=== PATIENT | male | born 1960 | race African-American/Black ===

== ENCOUNTER 2017-05-03 14:18 | Emergency (ER) | payer OTHER ==
[2017-05-03 14:40] VITALS: RESP 18
[2017-05-03 15:22] LABS: Appearance,Urine Clear (Clear); Bilirubin,Urine Negative (Negative); Blood,Urine Negative (Negative); Color,Urine Light Yellow; Glucose,Urine (UA) Negative (Negative); Ketones,Urine Negative (Negative); Leukocyte Esterase,Urine Negative (Negative); Protein,Urine Negative (Negative); Specific Gravity,Urine 1.003 (1.001-1.035); Urobilinogen,Urine <2.0 mg/dL (<2.0)
--- NOTE | 2017-05-03 15:30 | ED ---
Lower Extremity Injury HPI - General Chief Complaint: Extremity Injury, Lower Stated Complaint: Leg pain Time Seen by Provider: 05/03/17 14:45 Source: patient Mode of arrival: ambulatory Limitations: no limitations - History of Present Illness Initial Comments: 57-year-old male patient presents to the emergency department today for evaluation of pain in his right calf. Patient states that he has an area of redness, pain, and swelling to the medial aspect of the right calf. Patient states that he noticed a spot a week ago. He states that it is very painful and hurts to walk. He denies any injury to the leg. Denies any numbness or tingling to the right lower leg. Denies any history of pain. Denies any recent travel, shortness of breath, palpitations, or chest pain. Patient denies any recent rash, fever, chills, shortness breath, chest pain, abdominal pain, nausea, vomiting, diarrhea, constipation, back pain, numbness, tingling, dizziness, weakness, hematuria, dysuria, urinary urgency, urinary frequency, headache, visual changes, or any other complaints. - Related Data Allergies Allergy/AdvReac Type Severity Reaction Status Date / Time No Known Allergies Allergy Verified 05/03/17 15:12 Review of Systems ROS Statement: Those systems with pertinent positive or pertinent negative responses have been documented in the HPI. ROS Other: All systems not noted in ROS Statement are negative. Past Medical History Past Medical History: Hypertension History of Any Multi-Drug Resistant Organisms: None Reported Past Surgical History: Appendectomy Past Psychological History: No Psychological Hx Reported Smoking Status: Current every day smoker Past Alcohol Use History: None Reported Past Drug Use History: None Reported General Exam Limitations: no limitations General appearance: alert, in no apparent distress, other (This is a well- developed, well-nourished adult male patient in no acute distress. Vital signs upon presentation are temperature 98.2F, pulse 70, respirations 18, blood pressure 153/99, pulse ox 96% on room air.) Respiratory exam: Present: normal lung sounds bilaterally. Absent: respiratory distress, wheezes, rales, rhonchi, stridor Cardiovascular Exam: Present: regular rate, normal rhythm, normal heart sounds. Absent: systolic murmur, diastolic murmur, rubs, gallop, clicks Extremities exam: Present: normal inspection, full ROM, tenderness (Tenderness over the medial aspect of the right calf), normal capillary refill, other (Mild soft tissue swelling on the right calf, mildly tender. Skin is otherwise pink, warm, and dry. Cap refills less than 3 seconds. Pedal and posttibial pulses are 2+ and equal bilaterally.). Absent: pedal edema, joint swelling, calf tenderness Neurological exam: Present: alert, oriented X3, CN II-XII intact Psychiatric exam: Present: normal affect, normal mood Skin exam: Present: warm, dry, intact, normal color. Absent: rash Course Vital Signs 05/03/17 05/03/17 14:37 16:13 Temperature 98.2 F 98.3 F Pulse Rate 70 67 Respiratory 18 18 Rate Blood Pressure 153/99 148/84 O2 Sat by Pulse 96 97 Oximetry Medical Decision Making - Medical Decision Making 57-year-old male patient presented to the emergency department today for complaints of right lower leg pain. Physical examination did reveal the area of ecchymosis and induration to the right medial calf. Patient reports that this area is painful to touch. We did perform ultrasound of the right lower extremity which was negative for DVT. I did discuss findings with the patient and instructed him to take Tylenol for pain control. He is instructed to follow -up with his primary care physician for recheck. He reports he does not have insurance or doctor, did give him the [facility]. He is instructed to return here immediately for any new, worsening, or concerning symptoms. He verbalizes understanding and agrees with this plan. - Lab Data Lab Results 05/03/17 Range/Units 15:08 Urine Color Light Yellow Urine Appearance Clear (Clear) Urine pH 6.0 (5.0-8.0) Ur Specific [place] 1.003 (1.001-1.035) Urine Protein Negative (Negative) Urine Glucose (UA) Negative (Negative) Urine Ketones Negative (Negative) Urine Blood Negative (Negative) Urine Nitrite Negative (Negative) Urine Bilirubin Negative (Negative) Urine Urobilinogen <2.0 (<2.0) mg/dL Ur Leukocyte Esterase Negative (Negative) - Radiology Data Radiology results: report reviewed Ultrasound venous Doppler duplex of the right lower extremity was obtained, report was reviewed in its entirety. Impression by Dr. Arroyo shows no ultrasound evidence for acute DVT in the right lower extremity. Disposition Clinical Impression: Contusion Disposition: HOME SELF-CARE Condition: Good Instructions: Contusion in Adults (ED) Additional Instructions: Call [facility] to get an appointment . Take Tylenol for pain control. Follow-up with her doctor for recheck and further evaluation as soon as possible. Return here immediately for any new, worsening, or concerning symptoms. Referrals: None,Stated [Primary Care Provider] - 1-2 days Time of Disposition: 15:59
--- NOTE | 2017-05-03 15:50 | US ---
EXAMINATION TYPE: US venous doppler duplex LE RT DATE OF EXAM: 05/03/2017 3:30 PM COMPARISON: NONE CLINICAL HISTORY: Pain. Per patient, lower leg throbs, bruise. No hx of DVT or on blood thinners. N o surgeries. SIDE PERFORMED: Right TECHNIQUE: The lower extremity deep venous system is examined utilizing real time linear array sonog nish with graded compression, doppler sonography and color-flow sonography. VESSELS IMAGED: External Iliac Vein (EIV) Common Femoral Vein Deep Femoral Vein Greater Saphenous Vein * Femoral Vein Popliteal Vein Small Saphenous Vein * Proximal Calf Veins (* superficial vessels) Right Leg: Appears NEGATIVE for DVT Grayscale, color doppler, spectral doppler imaging performed of the deep veins of the right lower ext remity. There is normal flow, compressibility, vascular waveforms. IMPRESSION: No ultrasound evidence for acute DVT in the right lower extremity.
[2017-05-03 16:14] VITALS: BP 148/84; PULSE 67; TEMP 98.3
== END 2017-05-03 16:13 | disposition home or self-care (01) ==
LOC: EC 14:18
DX: S80.11XA Contusion of right lower leg, initial encounter (principal); F17.200 Nicotine dependence, unspecified, uncomplicated; X58.XXXA Exposure to other specified factors, initial encounter
CPT/HCPCS: 81003; 99284

== ENCOUNTER → 2018-03-09 | Outpatient (CLI) | payer BC ==
[2018-03-09 09:41] LABS: Basophils % (A) 0 %; Eosinophils # (A) 0.2 k/uL (0-0.7); Eosinophils % (A) 2 %; HCT 42.4 % (39.0-53.0); HGB 13.8 gm/dL (13.0-17.5); Lymphocytes # (A) 3.6 k/uL (1.0-4.8); Lymphocytes % (A) 47 %; MCH 28.4 pg (25.0-35.0); MCHC 32.5 g/dL (31.0-37.0); MCV 87.2 fL (80.0-100.0); Mean Platelet Volume 7.6; Monocytes # (A) 0.4 k/uL (0-1.0); Monocytes % (A) 5 %; Neutrophils # (A) 3.4 k/uL (1.3-7.7); Neutrophils % (A) 44 %; Platelet Count 258 k/uL (150-450); RBC 4.87 m/uL (4.30-5.90); RDW 13.6 % (11.5-15.5); WBC 7.7 k/uL (3.8-10.6)
[2018-03-09 10:30] LABS: Appearance,Urine Clear (Clear); Bacteria,Urine Rare /hpf; Bilirubin,Urine Negative (Negative); Blood,Urine Small (Negative); Color,Urine Yellow; Glucose,Urine (UA) Negative (Negative); Ketones,Urine Negative (Negative); Leukocyte Esterase,Urine Negative (Negative); Mucus,Urine Rare /hpf; Nitrite,Urine Negative (Negative); PH, Urine 5.5 (5.0-8.0); Protein,Urine Negative (Negative); RBC,Urine 5 /hpf (0-5); Specific Gravity,Urine 1.014 (1.001-1.035); Squamous Epithelial Cell,Urine 1 /hpf (0-4); Urobilinogen,Urine <2.0 mg/dL (<2.0); WBC,Urine 2 /hpf (0-5)
[2018-03-09 18:39] LABS: Vitamin D 25 Hydroxy 9.9 ng/mL (30.0-100.0)
[2018-03-09 19:12] LABS: Hepatitis C IgG Antibody Non-Reactive (Non-Reactive)
[2018-03-09 19:14] LABS: Albumin 4.4 g/dL (3.80-4.90); Albumin/Globulin Ratio 1.76 (1.20-2.10); Anion Gap 8.4 mmol/L (4.00-12.00); Calcium 9.1 mg/dL (8.7-10.3); Carbon Dioxide 28.6 mmol/L (21.6-31.8); Globulin 2.5 g/dL (1.6-3.3); LDL Cholesterol,Calculated 127.4 mg/dL (0.0-131.0); Potassium 3.9 mmol/L (3.5-5.5); Total Bilirubin 0.7 mg/dL (0.2-1.2); Total Protein 6.9 g/dL (6.2-8.2); VLDL Calculation 49.6 mg/dL (5.00-40.00)
== END | disposition home or self-care (01) ==
LOC: LABWHC1 08:13
PROVIDERS: ATTEND Internal Medicine
DX: E78.5 Hyperlipidemia, unspecified (principal); I10 Essential (primary) hypertension; M10.9 Gout, unspecified; N40.0 Benign prostatic hyperplasia without lower urinary tract symptoms; E55.9 Vitamin D deficiency, unspecified
CPT/HCPCS: 36415; 80053; 80061; 81001; 82306; 83036; 84153; 84443; 84550; 85025; 86803

== ENCOUNTER → 2018-04-28 | Outpatient (CLI) | payer BC ==
--- NOTE | 2018-04-29 15:08 | US ---
EXAMINATION TYPE: US kidneys/renal and bladder DATE OF EXAM: 04/28/2018 COMPARISON: NONE CLINICAL HISTORY: I10 HTN, E78.5 Hyperlipidemia N40.0.... EXAM MEASUREMENTS: Right Kidney: 11.0 x 47.6 x 4.6 cm Left Kidney: 11.7 x 5.8 x 6.5 cm Post Void Residual Volume: 2.1 mL Right Kidney: No hydronephrosis or masses seen Left Kidney: No hydronephrosis or masses seen Bladder: wnl Bilateral Jets seen: yes Normal Post Void Residual: yes IMPRESSION: 1. No suspicious acute changes renal ultrasound
== END ==
LOC: RADUSWWP 16:17
PROVIDERS: ATTEND Internal Medicine
DX: N40.0 Benign prostatic hyperplasia without lower urinary tract symptoms (principal); R97.20 Elevated prostate specific antigen [PSA]; E78.5 Hyperlipidemia, unspecified; I10 Essential (primary) hypertension
CPT/HCPCS: 76770

== ENCOUNTER → 2018-04-29 | Outpatient (CLI) | payer BC ==
[2018-04-29 18:15] LABS: Vitamin D 25 Hydroxy 31.2 ng/mL (30.0-100.0)
[2018-04-29 18:38] LABS: Uric Acid 4.5 mg/dL (3.7-8.7)
[2018-04-29 18:50] LABS: Cyclic Citrullinated Pep IgG NEGATIVE (NEGATIVE); DNA Double-Stranded NEGATIVE (NEGATIVE)
[2018-04-29 18:59] LABS: Rheumatoid Factor 6 IU/mL (0-15)
[2018-05-02 13:55] LABS: ANA Pattern Homogeneous
== END ==
LOC: LABWHC1 07:56
PROVIDERS: ATTEND Internal Medicine
DX: N40.0 Benign prostatic hyperplasia without lower urinary tract symptoms (principal); J44.9 Chronic obstructive pulmonary disease, unspecified; M10.9 Gout, unspecified; E78.5 Hyperlipidemia, unspecified; I10 Essential (primary) hypertension; E55.9 Vitamin D deficiency, unspecified; M06.9 Rheumatoid arthritis, unspecified; R97.20 Elevated prostate specific antigen [PSA]
CPT/HCPCS: 36415; 82306; 82550; 84153; 84550; 86038; 86039; 86200; 86225; 86431

== ENCOUNTER → 2018-07-29 | Outpatient (CLI) | payer BC ==
--- NOTE | 2018-07-29 08:19 | XR ---
EXAMINATION TYPE: XR chest 2V DATE OF EXAM: 07/29/2018 COMPARISON: NONE HISTORY: Cough per order. Increasing size back lump per patient. TECHNIQUE: Frontal and lateral views of the chest are obtained. FINDINGS: Some eventration of right hemidiaphragm is present. There is no focal air space opacity, pl eural effusion, or pneumothorax seen. The cardiac silhouette size is within normal limits. Some ecta junito of the descending thoracic aorta is noted. The osseous structures are intact. IMPRESSION: No acute cardiopulmonary process.
== END | disposition home or self-care (01) ==
LOC: RADXRMAIN 07:57
PROVIDERS: ATTEND Internal Medicine
DX: R05 Cough (principal); B99.9 Unspecified infectious disease
CPT/HCPCS: 71046

== ENCOUNTER → 2018-12-16 | Outpatient (CLI) | payer BC ==
--- NOTE | 2018-12-16 13:10 | US ---
EXAMINATION TYPE: US mass soft tissue chest/back DATE OF EXAM: 12/16/2018 COMPARISON: NONE CLINICAL HISTORY: R22.2 Back lump,. LUMP MID BACK. TECHNIQUE/FINDINGS: Scanned lump area mid back no fluid or masses identified. No sonographic abnormal ity. No correlate to the patient's palpable abnormality by ultrasound. IMPRESSION: No sonographic correlate for the patient's palpable abnormality. No solid or cystic mass.
--- NOTE | 2018-12-16 13:59 | US ---
EXAMINATION TYPE: US extremity nonvasc mass LT DATE OF EXAM: 12/16/2018 COMPARISON: NONE CLINICAL HISTORY: R22.31 Elbow lump. Lump on left elbow. TECHNIQUE/FINDINGS: Targeted ultrasound was performed of the palpable abnormality in the patient's le ft elbow utilizing grayscale and color imaging. Corresponding the palpable abnormality within the lef t elbow there is a hypoechoic solid area seen 2.0 x .8 x 1.6 cm some internal vascular flow noted. T his is seen within the subcutaneous tissues abutting the adjacent osseous structure. No additional so lid or cystic masses. No subcutaneous edema. IMPRESSION: Palpable abnormality of the left elbow corresponds to a solid mass with internal vascula rity. MRI with contrast is recommended for further characterization.
== END | disposition home or self-care (01) ==
LOC: RADUSWWP 11:00
PROVIDERS: ATTEND Surgery Plastic and Reconstructive Surgery
DX: R22.31 Localized swelling, mass and lump, right upper limb (principal); R22.32 Localized swelling, mass and lump, left upper limb

== ENCOUNTER → 2018-12-16 | Outpatient (CLI) | payer BC | END | disposition home or self-care (01) | LOC: LABPAT 11:31 | PROVIDERS: ATTEND Surgery Plastic and Reconstructive Surgery | DX: Z53.9 Procedure and treatment not carried out, unspecified reason (principal) ==

== ENCOUNTER → 2019-02-10 | Outpatient (CLI) | payer BC ==
--- NOTE | 2019-02-13 12:16 | CT ---
EXAMINATION TYPE: CT abdomen pelvis w con DATE OF EXAM: 02/10/2019 COMPARISON: None INDICATION: abdominal pain DLP: 1607 mGycm, Automated exposure control for dose reduction was used. CONTRAST: 100 mL of Isovue 300. Study performed with Oral Contrast TECHNIQUE: Axial images were obtained from above the diaphragm to the pubic rami in the axial plane a t 5 mm thick sections. Reconstructed images are reviewed on the computer in the coronal plane. FINDINGS: Limited CT sections are obtained the lung bases. The lung bases are clear. CT ABDOMEN: There are scattered small mesenteric lymph nodes present. Liver: Normal Spleen: Normal Pancreas: Normal Adrenal glands: The adrenal glands are normal. Gallbladder: Normal Kidneys: No masses are evident. No hydronephrosis is present. No cysts are present. Delayed images were obtained through the kidneys, which remain unremarkable. Aorta: Normal Inferior vena cava: Normal. CT PELVIS: Loops of bowel within the abdomen and pelvis are normal. There are loops of bowel with incomplete distention limiting their evaluation. Appendix: Not visualized. No suspicious changes to suggest acute appendicitis are evident. Urinary bladder: Normal. Genitourinary structures: Prostate is normal. A few small calcifications are within the prostate. Osseous structures: No suspicious lytic or sclerotic lesions. IMPRESSIONS: 1. Scattered small lymph nodes within the mesentery. This is nonspecific. 2. No suspicious acute diverticulitis changes.
== END | disposition home or self-care (01) ==
LOC: RADCTMAIN 15:42
PROVIDERS: ATTEND Surgery Plastic and Reconstructive Surgery
DX: K57.92 Diverticulitis of intestine, part unspecified, without perforation or abscess without bleeding (principal); R93.3 Abnormal findings on diagnostic imaging of other parts of digestive tract
CPT/HCPCS: 74177; Q9967

== ENCOUNTER → 2019-02-14 | Outpatient (CLI) | payer BC ==
--- NOTE | 2019-02-14 18:03 | CT ---
EXAMINATION TYPE: CT angio chest with contrast and with 3-D reconstruction renderings DATE OF EXAM: 02/14/2019 5:27 PM COMPARISON: None HISTORY: Right lung pain and lump on back. CT DLP: 638.5 mGycm Automated exposure control for dose reduction was used. CONTRAST: CTA scan of the thorax is performed with IV Contrast, patient injected with 69ml mL of Isov ue 370, pulmonary embolism protocol. Three-D reconstructions. FINDINGS: LUNGS: The lungs are grossly clear, there is no concerning parenchymal mass or nodule identified. The re is no pleural effusion or pneumothorax seen. The tracheobronchial tree is patent. MEDIASTINUM: There is satisfactory enhancement of the pulmonary artery and its branches, there is no CT evidence for pulmonary embolism. No acute aortic findings. However, ascending aortic caliber is 4 .3 cm, consistent with mild aneurysmal dilation. There is aortic tortuosity. No cardiomegaly or peric ardial effusion. Coronary calcifications are detected. There is no mediastinal or hilar adenopathy. OTHER: No significant findings. IMPRESSION: 1) NEGATIVE FOR PULMONARY EMBOLISM OR OTHER ACUTE PROCESS. 2) Coronary calcifications detected. 3) Ascending aortic caliber is 4.3 cm, consistent with mild aneurysmal dilation, and there is aortic tortuosity
== END | disposition home or self-care (01) ==
LOC: RADCTMAIN 17:08
PROVIDERS: ATTEND Internal Medicine Sleep Medicine
DX: I25.10 Atherosclerotic heart disease of native coronary artery without angina pectoris (principal); R93.1 Abnormal findings on diagnostic imaging of heart and coronary circulation
CPT/HCPCS: 71275; Q9967

== ENCOUNTER → 2019-03-10 | Outpatient (CLI) | payer BC ==
[2019-03-10 07:54] LABS: Basophils # (A) 0.1 k/uL (0-0.2); Basophils % (A) 1 %; Eosinophils # (A) 0.2 k/uL (0-0.7); Eosinophils % (A) 4 %; HCT 43.6 % (39.0-53.0); HGB 13.8 gm/dL (13.0-17.5); Lymphocytes % (A) 36 %; MCH 26.9 pg (25.0-35.0); MCHC 31.6 g/dL (31.0-37.0); MCV 85.1 fL (80.0-100.0); Mean Platelet Volume 7.4; Monocytes # (A) 0.3 k/uL (0-1.0); Monocytes % (A) 5 %; Neutrophils # (A) 2.8 k/uL (1.3-7.7); Neutrophils % (A) 52 %; Platelet Count 277 k/uL (150-450); RBC 5.12 m/uL (4.30-5.90); WBC 5.5 k/uL (3.8-10.6)
[2019-03-10 08:04] LABS: Appearance,Urine Clear (Clear); Bilirubin,Urine Negative (Negative); Blood,Urine Trace (Negative); Color,Urine Yellow; Glucose,Urine (UA) Negative (Negative); Hyaline Casts,Urine 1 /lpf (0-2); Ketones,Urine Negative (Negative); Leukocyte Esterase,Urine Negative (Negative); Mucus,Urine Rare /hpf; Nitrite,Urine Negative (Negative); PH, Urine 5.5 (5.0-8.0); Protein,Urine Negative (Negative); RBC,Urine 1 /hpf (0-5); Specific Gravity,Urine 1.016 (1.001-1.035); Squamous Epithelial Cell,Urine 1 /hpf (0-4); Urobilinogen,Urine <2.0 mg/dL (<2.0); WBC,Urine 1 /hpf (0-5)
[2019-03-10 11:50] LABS: Erythrocyte Sedimentation Rate 11 mm/hr (0-15)
[2019-03-10 12:01] LABS: African American GFR (CKD) 85.9 (60.0-200.0); Albumin 4.4 g/dL (3.80-4.90); Albumin/Globulin Ratio 1.91 (1.60-3.17); Anion Gap 4.8 mmol/L (4.00-12.00); BUN/Creat Ratio 12.73 Ratio (12.00-20.00); C Reactive Protein 0.8 mg/dL (0.0-0.8); Calcium 9.5 mg/dL (8.7-10.3); Carbon Dioxide 32.2 mmol/L (21.6-31.8); Chol/HDL Ratio 4.81; Globulin 2.3 g/dL (1.6-3.3); Non-African American GFR(CKD) 74.1 (60.0-200.0); Phosphorus 3.4 mg/dL (2.4-5.1); Potassium 4.8 mmol/L (3.5-5.5); Total Protein 6.7 g/dL (6.2-8.2)
[2019-03-10 13:09] LABS: Uric Acid 7.9 mg/dL (3.7-8.7)
== END | disposition home or self-care (01) ==
LOC: LABWHC1 07:14
PROVIDERS: ATTEND Internal Medicine
DX: N40.0 Benign prostatic hyperplasia without lower urinary tract symptoms (principal); I10 Essential (primary) hypertension; M10.9 Gout, unspecified; E78.5 Hyperlipidemia, unspecified; E55.9 Vitamin D deficiency, unspecified; C61 Malignant neoplasm of prostate; R97.20 Elevated prostate specific antigen [PSA]
CPT/HCPCS: 36415; 80053; 80061; 81001; 82306; 82550; 83735; 84100; 84153; 84443; 84550; 85025; 85652; 86140

== ENCOUNTER 2019-03-22 10:32 | Day surgery (SDC) | payer BC ==
[2019-03-21 08:40] VITALS: BMI 39.3
--- NOTE | 2019-03-22 08:37 | P.GSHP ---
History of Present Illness H&P Date: 03/22/19 CHIEF COMPLAINT: GERD and colon screen HISTORY OF PRESENT ILLNESS: The patient is a 59-year-old male who presents with gastroesophageal reflux disease and need for colon screen. Upper and lower endoscopy were offered for further evaluation and management. PAST MEDICAL HISTORY: Please see list. PAST SURGICAL HISTORY: Please see list. MEDICATIONS: Please see list. ALLERGIES: Please see list. SOCIAL HISTORY: No illicit drug use FAMILY HISTORY: No reports of Crohn disease or ulcerative colitis. REVIEW OF ORGAN SYSTEMS: CONSTITUTIONAL: No reports of fevers or chills. GI: Denies any blood in stools or constipation. PHYSICAL EXAM: VITAL SIGNS: Stable GENERAL: Well-developed pleasant in no acute distress. HEENT: No scleral icterus. Extraocular movements grossly intact. Moist buccal mucosa. NECK: Supple without lymphadenopathy. CHEST: Unlabored respirations. Equal bilateral excursions. CARDIOVASCULAR: Regular rate and rhythm. Distal 2+ pulses. ABDOMEN: Soft, nondistended. MUSCULOSKELETAL: No clubbing, cyanosis, or edema. ASSESSMENT: 1. Gastroesophageal reflux disease 2. Colon screen. PLAN: 1. Recommend proceeding with an upper and lower endoscopy Past Medical History Past Medical History: Cancer, Hypertension Additional Past Medical History / Comment(s): prostate cancer History of Any Multi-Drug Resistant Organisms: None Reported Past Surgical History: Appendectomy Past Anesthesia/Blood Transfusion Reactions: No Reported Reaction Past Psychological History: No Psychological Hx Reported Smoking Status: Former smoker Past Alcohol Use History: Occasional Additional Past Alcohol Use History / Comment(s): quit 2018, smoked for 30 yrs, less than 1ppd Past Drug Use History: None Reported - Past Family History Mother Family Medical History: No Reported History Medications and Allergies Home Medications Medication Instructions Recorded Confirmed Type Doxazosin [Cardura] 4 mg PO QAM 03/21/19 03/21/19 History Lisinopril 40 mg PO HS 03/21/19 03/21/19 History amLODIPine [Norvasc] 10 mg PO QAM 03/21/19 03/21/19 History Allergies Allergy/AdvReac Type Severity Reaction Status Date / Time No Known Allergies Allergy Verified 03/21/19 08:34
[~2019-03-22 10:32] MED LIST: LACTATED RINGERS 1,000 ML IV SCH; LIDOCAINE 1% 20 ML VIAL (10MG/ML) FOR IV START INTRADERMA PRN
[2019-03-22 11:09] VITALS: TEMP 98.4
[2019-03-22] MEDS ORDERED: LIDOCAINE 1% INJ 10MG/ML (20 ML MDV) ONE (11:40)
[2019-03-22] MEDS ORDERED: PROPOFOL 10 MG/ML 20 ML VIAL IV ONE (11:40)
[2019-03-22] MEDS ORDERED: GLYCOPYRROLATE 0.2 MG/ML 2 ML VIAL ONE (11:40)
--- NOTE | 2019-03-22 11:53 | P.PCN ---
Date of Procedure: 03/22/19 Description of Procedure: PREOPERATIVE DIAGNOSIS: Gastroesophageal reflux disease. Morbid obesity. POSTOPERATIVE DIAGNOSIS: Morbid obesity. Gastritis with bleeding Gastroesophageal reflux disease. OPERATION: Esophagogastroduodenoscopy with biopsies along antrum. SURGEON: Melissa Cheung MD ANESTHESIA: MAC. INDICATIONS: The patient is a 59-year-old male who presents with a history of reflux disease. Benefits and risks of the procedure were described. Informed consent was obtained. DESCRIPTION: The patient was brought into the endoscopy suite and laid in the left lateral decubitus position. An Olympus gastroscope was passed along the posterior oropharynx down to the distal esophagus where the squamocolumnar junction was encountered at 40 cm from the incisors. The stomach was entered and no bile reflux was found. Additional findings are listed below. Biopsies with cold forceps were obtained of the antrum. The first through third portion of the duodenum was examined and unremarkable. Retroflexion of the scope confirmed Hill grade 3 lower esophageal valve. The squamocolumnar junction demonstrated LA grade B erosive esophagitis. The stomach was desufflated. The patient tolerated the procedure well. FINDINGS: Squamocolumnar junction 40 cm from the incisors. Diaphragmatic hiatus at 40 cm. Hill grade 3 lower esophageal valve. LA grade B erosive esophagitis. No active duodenitis. Chronic gastritis with recent bleed RECOMMENDATIONS: Upper endoscopy as needed.
[2019-03-22 12:12] VITALS: RESP 16
--- NOTE | 2019-03-22 12:12 | P.PCN ---
Date of Procedure: 03/22/19 Description of Procedure: PREOPERATIVE DIAGNOSIS: Colonoscopy screening, first POSTOPERATIVE DIAGNOSIS: Colonoscopy screening, firstexure Sigmoid colon polyp Sigmoid diverticulosis OPERATION: Colonoscopy to the ileocecal valve and appendiceal orifice. Colonoscopy with cold forceps biopsies SURGEON: Melissa Cheung MD. ANESTHESIA: MAC. INDICATIONS: The patient is an 59-year-old male who presents for his first colonoscopy. Benefits and risks were described and informed consent was obtained. DESCRIPTION OF PROCEDURE: The patient had undergone Suprep. He had been brought into the operating room and laid in the left lateral decubitus position. After adequate intravenous sedation, the rectum was examined with 2% lidocaine jelly. The prostate fossa was unremarkable. No external hemorrhoids were encountered. The rectal tone was within normal limits. No lesions were palpated in the rectal vault. An Olympus colonoscope was advanced until the ileocecal valve and appendiceal orifice were clearly viewed. The prep was excellent. Sigmoid diverticulosis was encountered. Multiple colonic polyps were found and removed with cold forceps biopsy focal colitis was found. Retroflexion of the scope demonstrated no internal hemorrhoids. The colon was desufflated. The patient had tolerated the procedure well. Withdrawal time was over 6 minutes. FINDINGS: Aronchick preparation quality scale 1 (1-5) No internal hemorrhoids No external hemorrhoids No arteriovenous malformations Sigmoid diverticulosis Removal of 3 polyps: - Cold forceps biopsy at 25 cm from the anal verge x 2, 4 mm polyps, sigmoid colon - Cold forceps biopsy at 20 cm from the anal verge, 4 mm polyp, sigmoid colon No focal colitis. RECOMMENDATIONS: Repeat colonoscopy 3 years, 2022 Plan - Discharge Summary Discharge Rx Participant: No New Discharge Prescriptions: No Action amLODIPine [Norvasc] 10 mg PO QAM Lisinopril 40 mg PO HS Doxazosin [Cardura] 4 mg PO QAM Discharge Medication List Doxazosin [Cardura] 4 mg PO QAM 03/21/19 [History] Lisinopril 40 mg PO HS 03/21/19 [History] amLODIPine [Norvasc] 10 mg PO QAM 03/21/19 [History] Follow up Appointment(s)/Referral(s): Melissa Cheung MD [STAFF PHYSICIAN] - 04/04/19 Patient Instructions/Handouts: Colorectal Polyps (DC), Diverticulosis Diet (GEN), Diverticulosis (DC) Activity/Diet/Wound Care/Special Instructions: Repeat colonoscopy 5 years, 2024 Discharge Disposition: HOME SELF-CARE
[2019-03-22 12:26] VITALS: BP 109/85; PULSE 70
== END 2019-03-22 12:42 | disposition home or self-care (01) ==
LOC: ORWHC2ENDO 10:32
PROVIDERS: ATTEND Surgery Plastic and Reconstructive Surgery
DX: K29.51 Unspecified chronic gastritis with bleeding (principal); K21.9 Gastro-esophageal reflux disease without esophagitis; Z12.11 Encounter for screening for malignant neoplasm of colon; K63.5 Polyp of colon; K57.30 Diverticulosis of large intestine without perforation or abscess without bleeding; I10 Essential (primary) hypertension; E66.01 Morbid (severe) obesity due to excess calories; Z68.36 Body mass index [BMI] 36.0-36.9, adult; Z85.46 Personal history of malignant neoplasm of prostate; Z90.49 Acquired absence of other specified parts of digestive tract; Z87.891 Personal history of nicotine dependence; Z79.899 Other long term (current) drug therapy
CPT/HCPCS: 88305; 45380; 43239; J2001; J2704

== ENCOUNTER → 2019-08-04 | Outpatient (CLI) | payer BC ==
--- NOTE | 2019-08-04 15:21 | NM ---
EXAMINATION TYPE: NM bone scan whole body DATE OF EXAM: 08/04/2019 COMPARISON: CTA chest February 14, 2019. CT abdomen and pelvis February 10, 2019. HISTORY: Prostate cancer. Delayed whole-body scanning was performed following the injection of 23.5 mCi Tc 99m MDP. Images acq uired 4 hours post injection. Whole body images in the anterior posterior projection along with image s of the abdomen and pelvis in multiple projections acquired. FINDINGS: There is no suspicious increased radiotracer uptake to suggest metastatic disease to the bone or othe r suspicious abnormality. Mild uptake bilateral knee joints is felt to reflect product of degenerativ e change greatest in the medial tibiofemoral compartments. IMPRESSION: No scintigraphic evidence of metastatic disease to the bone.
== END | disposition home or self-care (01) ==
LOC: RADNMMAIN 10:39
PROVIDERS: ATTEND Internal Medicine
DX: C61 Malignant neoplasm of prostate (principal)
CPT/HCPCS: 78306; A9503

== ENCOUNTER → 2019-12-01 | Outpatient (CLI) | payer BC ==
[2019-12-01 17:42] LABS: African American GFR (CKD) 85.9 (60.0-200.0); Non-African American GFR(CKD) 74.1 (60.0-200.0)
[2019-12-01 17:53] LABS: Prostate Specific Antigen 14.6 ng/mL (0.0-3.5)
== END | disposition home or self-care (01) ==
LOC: LABWHC1 07:11
PROVIDERS: ATTEND Radiology Radiation Oncology
DX: C61 Malignant neoplasm of prostate (principal); Z87.891 Personal history of nicotine dependence
CPT/HCPCS: 36415; 82565; 84153; 84520

== ENCOUNTER → 2019-12-06 | Outpatient (CLI) | payer BC ==
--- NOTE | 2019-12-06 16:14 | CT ---
EXAMINATION TYPE: CT pelvis wo/w con DATE OF EXAM: 12/06/2019 COMPARISON: Prior CT 02/10/2019, bone scan 08/04/2019 HISTORY: f/u prostate ca CT DLP: 2650.4 mGycm Automated exposure control for dose reduction was used. TECHNIQUE: Helical acquisition of images from the lung bases through the pelvis have been completed. CONTRAST: Performed with Oral Contrast and without and with IV Contrast, patient injected with 100 mL of Isovue 300. FINDINGS: AORTA: No significant abnormality is appreciated. Left common iliac artery is ectatic as on prior ex am LIVER/GB: No significant abnormality is appreciated. PANCREAS: No significant abnormality is seen. SPLEEN: No significant abnormality is seen. ADRENALS: No significant abnormality is seen. KIDNEYS: No significant abnormality is seen. REPRODUCTIVE ORGANS: There is some calcifications present within the prostate as on prior. Small travis ia noted left groin as on prior BOWEL: Some diverticular change noted within the descending colon FREE AIR: No Free Air visible. ASCITES: None visible. PELVIC ADENOPATHY: None visualized. RETROPERITONEAL ADENOPATHY: No Retroperitoneal Adenopathy visible. URINARY BLADDER: No significant abnormality is seen. OSSEOUS STRUCTURES: There is some facet arthropathy changes present at the lower lumbar spine, no sc lerotic or lytic lesion. IMPRESSION: THERE IS NO SIGNIFICANT INTERVAL CHANGE. LEFT GROIN HERNIA, CORRELATE. LEFT COMMON ILIAC ARTERY IS EC TATIC.
== END | disposition home or self-care (01) ==
LOC: RADCTMAIN 13:46
PROVIDERS: ATTEND Radiology Radiation Oncology
DX: I77.811 Abdominal aortic ectasia (principal); C61 Malignant neoplasm of prostate; Z87.891 Personal history of nicotine dependence
CPT/HCPCS: 72194; Q9967

== ENCOUNTER → 2020-01-11 | Outpatient (CLI) | payer BC ==
[2020-01-11 18:23] LABS: African American GFR (CKD) >90 (>60 ml/min/1.73 sqM); Blood Urea Nitrogen 14 mg/dL (9-20); Non-African American GFR(CKD) 79 (>60 ml/min/1.73 sqM)
--- NOTE | 2020-01-12 10:27 | CT ---
EXAMINATION TYPE: CT chest wo/w con DATE OF EXAM: 01/11/2020 COMPARISON: CT chest 02/14/2019 HISTORY: Bilateral lower rib pain and back pain. CT DLP: 1238 mGycm Automated exposure control for dose reduction was used. CONTRAST: CT scan of the chest is performed without and with IV Contrast, patient injected with 100ml mL of Iso geronimo 300. FINDINGS: LUNGS: The lungs are grossly clear, there is no concerning parenchymal mass or nodule identified. T here is no pleural effusion or pneumothorax seen. The tracheobronchial tree is patent. MEDIASTINUM: There are no greater than 1 cm hilar or mediastinal lymph nodes. No pericardial effusi on is seen. AORTA: Ascending aorta is aneurysmal at 4.6 cm, proximal descending aorta 3 cm, at the level of the hiatus the aorta measures 2.8 cm. OTHER: Bones show normal mineralization, consider bone scan as indicated. IMPRESSION: No abnormality evident to account for patient's symptoms. Aortic aneurysm. Consider bone scan or MRI. Additional findings above
== END | disposition home or self-care (01) ==
LOC: RADCTMAIN 17:42
PROVIDERS: ATTEND Radiology Radiation Oncology
DX: I71.2 Thoracic aortic aneurysm, without rupture (principal); C61 Malignant neoplasm of prostate; Z87.891 Personal history of nicotine dependence
CPT/HCPCS: 82565; 84520; 71270; 36415; Q9967

== ENCOUNTER 2020-01-18 08:55 | Day surgery (SDC) | payer BC ==
--- NOTE | 2020-01-12 17:55 | P.GSHP ---
History of Present Illness H&P Date: 01/12/20 Chief Complaint: Prostate Cancer The patient is a 59-year-old -[place] male initially evaluated in March 2018 for an elevated PSA level of 9.42. CADEN revealed a left-sided prostate nodule. 3 of 12 biopsies showed evidence of prostate cancer, Maria 6/7. Treatment options were reviewed, but he chose not to proceed with treatment. His PSA level in March 2019 fuad to 18.5, but decreased to 14.9 in July 2019. A bone scan in July 2019 was negative. After multiple detailed discussions, the patient has elected to proceed with IMRT. He has been made aware of the fact that the addition of androgen deprivation therapy (ADT) improves with IMRT, but he nonetheless declines ADT. He has elected to undergo SpaceOAR implant to reduce rectal toxicity. - Genitourinary (Male) Genitourinary: Reports nocturia, Reports urinary frequency Past Medical History Past Medical History: Hypertension History of Any Multi-Drug Resistant Organisms: None Reported Past Surgical History: Appendectomy Past Alcohol Use History: None Reported Medications and Allergies Home Medications Medication Instructions Recorded Confirmed Type Doxazosin [Cardura] 4 mg PO QAM 03/21/19 03/21/19 History amLODIPine [Norvasc] 10 mg PO QAM 03/21/19 03/21/19 History lisinopriL 40 mg PO HS 03/21/19 03/22/19 History Amoxicillin 1,000 mg PO Q12HR #56 cap 04/10/19 Rx Clarithromycin [Biaxin] 500 mg PO Q12HR #28 tablet 04/10/19 Rx Allergies Allergy/AdvReac Type Severity Reaction Status Date / Time No Known Allergies Allergy Verified 03/21/19 08:34 Surgical - Exam - General well developed, well nourished, no distress - Respiratory normal respiratory effort, clear to auscultation - Cardiovascular Rhythm: regular Abnormal Heart Sounds: no systolic murmur, no diastolic murmur, no rub, no S3 Gallop, no S4 Gallop, no click, no other - Abdomen Abdomen: soft, non tender, no guarding, no rigid, no rebound - Genitourinary normal penis with no external lesions, testicles non-tender - Rectum Rectum: normal sphincter tone, no masses, other (Left prostate nodule) - Psychiatric oriented to time, oriented to person, oriented to place, speech is normal, memory intact Assessment and Plan (1) Malignant neoplasm of prostate Status: Acute Code(s): C61 - MALIGNANT NEOPLASM OF PROSTATE SNOMED Code(s): 615852409 Plan: The SpaceOar implant has been reviewed in detail with the patient. He understands that the rationale for this is to create separation between the prostate and rectum, thus reducing the risk of radiation proctitis. The material begins to breakdown 12-13 weeks following implant, and is reabsorbed by the body. Risks include anesthesia, bleeding, infection, and perineal discomfort. He understands that if the rectal wall is perforated the procedure will need to be aborted.
[2020-01-17 09:42] VITALS: BMI 38.6
[~2020-01-18 08:55] MED LIST changes: +DEXAMETHASONE SOD PHOSPHATE 4 MG/ML 1 ML VIAL IV ONE; +HYDROmorphone 0.5 MG/0.5 ML SYRINGE IVP PRN; +LIDOCAINE 1% (10MG/ML) FOR IV START INTRADERMA PRN; -LIDOCAINE 1% 20 ML VIAL (10MG/ML) FOR IV START INTRADERMA PRN; +MIDAZOLAM 2 MG/2 ML VIAL IV PRN; +ONDANSETRON 4 MG/2 ML VIAL IVP ONE
[2020-01-18] MEDS ORDERED: KETAMINE 10 MG/ML 20 ML VIAL ONE (10:15)
[2020-01-18] MEDS ORDERED: PROPOFOL 10 MG/ML 20 ML VIAL IV ONE (10:15)
[2020-01-18] MEDS ORDERED: MIDAZOLAM 2 MG/2 ML VIAL ONE (10:15)
[2020-01-18] MEDS ORDERED: fentaNYL (PF) 50 MCG/ML 2 ML AMP ONE (10:15)
[2020-01-18] MEDS ORDERED: GLYCOPYRROLATE 0.2 MG/ML 2 ML VIAL ONE (10:15)
[2020-01-18] MEDS ORDERED: LIDOCAINE 2% INJ 20 MG/ML SQ ONE (10:37)
--- NOTE | 2020-01-18 10:48 | P.OP ---
Date of Procedure: 01/18/20 Preoperative Diagnosis: Adenocarcinoma of the prostate Postoperative Diagnosis: Same Procedure(s) Performed: SpaceOAR Implant Anesthesia: MAC Surgeon: Giovanni Fitzpatrick Estimated Blood Loss (ml): 5 IV fluids (ml): 300 Pathology: none sent Condition: stable Disposition: PACU Indications for Procedure: The patient is a 59-year-old -[place] male initially evaluated in March 2018 for an elevated PSA level of 9.42. CADEN revealed a left-sided prostate nodule. 3 of 12 biopsies showed evidence of prostate cancer, Munising 6/7. Treatment options were reviewed, but he chose not to proceed with treatment. His PSA level in March 2019 fuad to 18.5, but decreased to 14.9 in July 2019. A bone scan in July 2019 was negative. After multiple detailed discussions, the patient has elected to proceed with IMRT. He has been made aware of the fact that the addition of androgen deprivation therapy (ADT) improves with IMRT, but he nonetheless declines ADT. He has elected to undergo SpaceOAR implant to reduce rectal toxicity. Operative Findings: 13 mm distance created between prostate and rectum. Description of Procedure: The patient was taken to the operating room and placed in the dorsolithotomy position, with his legs supported in [place] stirrups. The external genitalia was prepped and draped sterilely. The Bruel and Kjaer transrectal ultrasound probe was placed intrarectally. The prostate was imaged. The probe was then placed within the stabilizing stand. A spinal needle was advanced under ultrasonic guidance to the level of the urogenital diaphragm, and lidocaine was used to infiltrate the tissues as the needle was withdrawn. Next, the SpaceOAR needle was passed through the midline of the perineum, 1-2 cm anterior to the anal opening. The needle was slowly advanced under ultrasonic guidance until the needle tip was located within the fat plane between the prostate and rectum, at the level of the mid prostate gland. The needle was confirmed to be midline on the axial imaging. A small amount of normal saline was injected for hydrodissection. Next, the SpaceOAR components were mixed and loaded into the Y connector per protocol. The Y connector was then connected to the needle, and the components were injected slowly over a course of approximately 12 seconds. A total of 10 ml was injected. 13 mm distance was created between the prostate and rectum. It should be noted that at no point was there any concern of rectal perforation. The needle was withdrawn, as well as the transrectal ultrasound probe, and the procedure was terminated. The patient tolerated the procedure well and was taken to the recovery room in stable condition.
[2020-01-18 11:03] VITALS: TEMP 97.2
[2020-01-18 11:56] VITALS: RESP 20
[2020-01-18 12:06] VITALS: BP 102/70; PULSE 76
== END 2020-01-18 12:07 | disposition home or self-care (01) ==
LOC: OR 08:55
PROVIDERS: ATTEND Urology
DX: C61 Malignant neoplasm of prostate (principal); I10 Essential (primary) hypertension; E78.5 Hyperlipidemia, unspecified; F17.210 Nicotine dependence, cigarettes, uncomplicated; M19.90 Unspecified osteoarthritis, unspecified site; E66.9 Obesity, unspecified; Z79.899 Other long term (current) drug therapy; Z90.49 Acquired absence of other specified parts of digestive tract; Z68.38 Body mass index [BMI] 38.0-38.9, adult
CPT/HCPCS: 55874; J2001; J2250; J1100; J0690; J2405; J3010; J2704

== ENCOUNTER → 2020-04-19 | Outpatient (CLI) | payer BC ==
[2020-04-19 10:59] LABS: Basophils # (A) 0.02 X 10*3/uL (0.00-0.10); Basophils % (A) 0.4 %; Eosinophils # (A) 0.11 X 10*3/uL (0.04-0.35); HCT 41.8 % (39.6-50.0); HGB 13.2 g/dL (13.0-17.0); Lymphocytes # (A) 1.22 X 10*3/uL (0.90-5.00); Lymphocytes % (A) 22.5 %; MCH 27.2 pg (27.0-32.0); MCHC 31.6 g/dL (32.0-37.0); MCV 86.2 fL (80.0-97.0); Monocytes # (A) 0.39 X 10*3/uL (0.20-1.00); Monocytes % (A) 7.2 %; Neutrophils # (A) 3.67 X 10*3/uL (1.80-7.70); Neutrophils % (A) 67.7 %; Platelet Count 252 X 10*3/uL (140-440); RBC 4.85 X 10*6/uL (4.40-5.60); RDW 13.2 % (11.5-14.5); WBC 5.42 X 10*3/uL (4.50-10.00)
[2020-04-19 13:05] LABS: ALT 21 U/L (10-49); AST 21 U/L (14-35); African American GFR (CKD) 85.3 (60.0-200.0); Albumin/Globulin Ratio 1.92 (1.60-3.17); Alkaline Phosphatase 51 U/L (41-126); BUN/Creat Ratio 16.36 Ratio (12.00-20.00); C Reactive Protein <0.4 mg/dL (0.0-0.8); Carbon Dioxide 26.5 mmol/L (21.6-31.8); Chloride 107 mmol/L (96-109); Chol/HDL Ratio 4.32; Cholesterol 164 mg/dL (0-200); Globulin 2.4 g/dL (1.6-3.3); Glucose 102 mg/dL (70-110); Non-African American GFR(CKD) 73.6 (60.0-200.0); Phosphorus 3.4 mg/dL (2.4-5.1); Potassium 4.3 mmol/L (3.5-5.5); Prostate Specific Antigen 8.8 ng/mL (0.0-3.5); Sodium 141 mmol/L (135-145); Total Bilirubin 0.8 mg/dL (0.3-1.2); Uric Acid 8.6 mg/dL (3.7-8.7)
[2020-04-19 13:06] LABS: Creatine Kinase 482 U/L (35-257); Magnesium 1.9 mg/dL (1.5-2.4)
[2020-04-19 13:58] LABS: Erythrocyte Sedimentation Rate 8 mm/Hr (0-20)
[2020-04-19 18:06] LABS: Hemoglobin A1C 5.9 % (4.0-6.0)
== END | disposition home or self-care (01) ==
LOC: LABWHC1 07:10
PROVIDERS: ATTEND Radiology Radiation Oncology
DX: D64.9 Anemia, unspecified (principal); N40.0 Benign prostatic hyperplasia without lower urinary tract symptoms; I10 Essential (primary) hypertension; M10.9 Gout, unspecified; E78.5 Hyperlipidemia, unspecified; E11.65 Type 2 diabetes mellitus with hyperglycemia; E66.9 Obesity, unspecified; M18.10 Unilateral primary osteoarthritis of first carpometacarpal joint, unspecified hand; E55.9 Vitamin D deficiency, unspecified; C61 Malignant neoplasm of prostate; Z79.818 Long term (current) use of other agents affecting estrogen receptors and estrogen levels; Z87.891 Personal history of nicotine dependence
CPT/HCPCS: 36415; 80053; 80061; 82306; 82550; 83036; 83735; 83970; 84100; 84153; 84443; 84550; 85025; 85652; 86140

== ENCOUNTER 2020-05-01 14:19 | Emergency (ER) | payer BC ==
[2020-05-01] MEDS ORDERED: SODIUM CHLORIDE 0.9% 500 ML 500 ML IV STA (14:58)
[2020-05-01 15:14] LABS: Basophils % (A) 1 %; Eosinophils # (A) 0.3 k/uL (0-0.7); Eosinophils % (A) 6 %; HCT 39.2 % (39.0-53.0); Lymphocytes % (A) 18 %; MCH 27.6 pg (25.0-35.0); MCHC 33.1 g/dL (31.0-37.0); MCV 83.5 fL (80.0-100.0); Mean Platelet Volume 6.9; Monocytes # (A) 0.3 k/uL (0-1.0); Monocytes % (A) 5 %; Neutrophils # (A) 3.9 k/uL (1.3-7.7); Neutrophils % (A) 70 %; Platelet Count 242 k/uL (150-450); RDW 13.2 % (11.5-15.5); WBC 5.6 k/uL (3.8-10.6)
[2020-05-01 15:22] LABS: INR 1.1 (<1.2); Partial Thromboplastin Time 24.4 sec (22.0-30.0); Prothrombin Time 11.5 sec (9.0-12.0)
[2020-05-01 15:23] LABS: ALT 19 U/L (4-49); AST 25 U/L (17-59); African American GFR (CKD) >90 (>60 ml/min/1.73 sqM); Albumin 4.4 g/dL (3.5-5.0); Alkaline Phosphatase 48 U/L (38-126); Anion Gap 6 mmol/L; Blood Urea Nitrogen 14 mg/dL (9-20); Calcium 9.5 mg/dL (8.4-10.2); Carbon Dioxide 29 mmol/L (22-30); Chloride 103 mmol/L (98-107); Glucose 99 mg/dL (74-99); Non-African American GFR(CKD) 82 (>60 ml/min/1.73 sqM); Sodium 138 mmol/L (137-145); Total Bilirubin 0.7 mg/dL (0.2-1.3); Total Protein 7.4 g/dL (6.3-8.2)
--- NOTE | 2020-05-01 15:29 | XR ---
EXAMINATION TYPE: XR chest 2V DATE OF EXAM: 05/01/2020 COMPARISON: 07/29/2018 HISTORY: 60-year-old male confusion, altered mental status TECHNIQUE: AP and lateral views FINDINGS: Heart borderline to mildly enlarged. Elongation/ectasia of the thoracic aorta. Mild hyperinflation. N o tim consolidation or pleural effusion. Hazy densities related to large patient body habitus. IMPRESSION: Borderline to mild cardiomegaly. Suspect underlying COPD. No definite acute process.
--- NOTE | 2020-05-01 15:32 | CT ---
EXAMINATION TYPE: CT brain wo con DATE OF EXAM: 05/01/2020 COMPARISON: None HISTORY: Lightheadedness, right arm numbness, neuro deficit CT DLP: 1133.4 mGycm Automated exposure control for dose reduction was used. Helical imaging through the brain. FINDINGS: Cortical atrophy is present. White matter low-attenuation is patchy. There is some basal ganglia calc ifications. There is no hemorrhage or hydrocephalus. Calvarium is intact. There is some increased den sity present within the ethmoid air cells. Mastoid air cells are well aerated. IMPRESSION: NONSPECIFIC WHITE MATTER DEMYELINATION, AGE RELATED ATROPHY, CONSIDER MRI INDICATED FOR INCREASED SENSITIVITY
--- NOTE | 2020-05-01 15:35 | ED ---
General Adult HPI - General Source: patient Mode of arrival: ambulatory Limitations: no limitations <Ashanti Dean - Last Filed: 05/01/20 16:04> <Michelle Oshea - Last Filed: 05/03/20 13:29> - General Chief complaint: Neuro Symptoms/Deficit Stated complaint: Dizziness Time Seen by Provider: 05/01/20 14:44 - History of Present Illness Initial comments: 60-year-old male patient presents to the emergency department today for evaluation of right arm numbness and lightheadedness. Patient states around 1:00 he was at home when he developed a numb sensation to the right upper arm. States at the same time he became very lightheaded. States symptoms lasted for about 15 minutes and then resolved. Patient denies any history of similar symptoms. States he has been having some pain to the right anterior shoulder for the last couple of weeks but nothing more to today. Denies any facial droop or speech difficulties with this. States he does have a history of high blood pressure and high cholesterol. No personal or family history of CVA, TIA, or cardiac disease. Patient denies any recent rash, fever, chills, cough, shortness of breath, chest pain, abdominal pain, nausea, vomiting, diarrhea, constipation, back pain, hematuria, dysuria, urinary urgency, urinary frequency, headache, visual changes, or any other complaints. (Ashanti Dean) - Related Data Home Medications Medication Instructions Recorded Confirmed Doxazosin [Cardura] 4 mg PO QAM 03/21/19 01/17/20 amLODIPine [Norvasc] 10 mg PO QAM 03/21/19 01/17/20 lisinopriL 20 mg PO 03/21/19 01/17/20 Cholecalciferol [Vitamin D3 (25 5,000 unit PO DAILY 01/17/20 01/17/20 Mcg = 1000 Iu)] Pravastatin Sodium [Pravachol] 20 mg PO HS 01/17/20 01/17/20 Allergies Allergy/AdvReac Type Severity Reaction Status Date / Time No Known Allergies Allergy Verified 01/18/20 09:06 Review of Systems ROS Other: All systems not noted in ROS Statement are negative. <Ashanti Dean - Last Filed: 05/01/20 16:04> ROS Other: All systems not noted in ROS Statement are negative. <Michelle Oshea - Last Filed: 05/03/20 13:29> ROS Statement: Those systems with pertinent positive or pertinent negative responses have been documented in the HPI. Past Medical History Past Medical History: Hypertension History of Any Multi-Drug Resistant Organisms: None Reported Past Surgical History: Appendectomy Past Psychological History: No Psychological Hx Reported Smoking Status: Current some day smoker Past Alcohol Use History: Rare Past Drug Use History: None Reported <Ashanti Dean - Last Filed: 05/01/20 16:04> General Exam Limitations: no limitations General appearance: alert, in no apparent distress, other (This is a well- developed, well-nourished adult male patient in no acute distress. Vital signs upon presentation are temperature 99.0F, pulse 94, respirations 17, blood pressure 137/81, pulse ox 96% on room air.) Eye exam: Present: normal appearance, PERRL, EOMI. Absent: scleral icterus, conjunctival injection, nystagmus, periorbital swelling ENT exam: Present: normal exam, normal oropharynx, mucous membranes moist Neck exam: Present: normal inspection, full ROM. Absent: tenderness, meningismus, lymphadenopathy Respiratory exam: Present: normal lung sounds bilaterally. Absent: respiratory distress, wheezes, rales, rhonchi, stridor Cardiovascular Exam: Present: regular rate, normal rhythm, normal heart sounds. Absent: systolic murmur, diastolic murmur, rubs, gallop, clicks GI/Abdominal exam: Present: soft, normal bowel sounds. Absent: distended, tenderness, guarding, rebound, rigid Extremities exam: Present: normal inspection, full ROM, normal capillary refill, other (Skin exam is pink, warm, dry. Cap refill less than 3 seconds. Radial pulses 2+ and equal bilaterally). Absent: tenderness, pedal edema, joint swelling, calf tenderness Neurological exam: Present: alert, oriented X3, CN II-XII intact Expanded Speech: Present: fluid speech Cranial nerves: EOM's Intact: Normal, Tongue Deviation: Normal Upper motor neuron: Pronator Drift: Normal Motor strength exam: RUE: 5, LUE: 5, RLE: 5, LLE: 5 Psychiatric exam: Present: normal affect, normal mood Skin exam: Present: warm, dry, intact, normal color. Absent: rash <Ashanti Dean Last Filed: 05/01/20 16:04> Course Vital Signs 05/01/20 05/01/20 05/01/20 14:30 15:39 16:24 Temperature 99.0 F 98.0 F Pulse Rate 94 60 63 Respiratory 17 18 18 Rate Blood Pressure 137/81 110/82 115/80 O2 Sat by Pulse 96 96 96 Oximetry EKG Findings - EKG Comments: EKG Findings:: EKG obtained at 1451 shows normal sinus rhythm with a ventricular 61, IN interval 172, QR jainism 94, QT 378, QTC 380. No evidence of ST elevation or depression. <JermaineAshanti Yesenia - Last Filed: 05/01/20 16:04> Medical Decision Making - Lab Data Result diagrams: 05/01/20 15:10 05/01/20 15:10 - Radiology Data Radiology results: report reviewed, image reviewed <JermaineAshanti Patterson - Last Filed: 05/01/20 16:04> - Lab Data Result diagrams: 05/01/20 15:10 05/01/20 15:10 <Michelle Oshea - Last Filed: 05/03/20 13:29> - Medical Decision Making 60-year-old male patient presents to the emergency department today for evaluation of lightheadedness and right upper arm numbness that lasted approximately 10-15 minutes. Physical examination is unremarkable. He is neurologically intact with no focal deficits. NIH is 0. Labs reviewed and are unremarkable. CT brain showed white matter demyelination but no other abnormalities. EKG showed normal sinus rhythm. I did discuss findings and results with the patient. Be discharged home with his primary care physician for recheck in 1-2 days. Return parameters were discussed in detail. He verbalizes understanding and agrees with this plan. Case discussed in my attending Dr. Oshea. (Ashanti Dean) I was available for consultation in the emergency department. The history and physical exam were done by the midlevel provider. I was consulted for this patients care. I reviewed the case with the midlevel provider and based on their presentation of the patient, I agree with the assessment, medical decision making and plan of care as documented. Chart was dictated using Play[employer] dictation software. Attempts were made to correct any dictation errors however some typographical errors may persist. Patient was seen during a national state of emergency due to the Covid-19 pandemic. (Michelle Oshea) - Lab Data Lab Results 05/01/20 05/01/20 05/01/20 Range/Units 15:10 15:10 15:10 WBC 5.6 (3.8-10.6) k/uL RBC 4.70 (4.30-5.90) m/uL Hgb 13.0 (13.0-17.5) gm/dL Hct 39.2 (39.0-53.0) % MCV 83.5 (80.0-100.0) fL MCH 27.6 (25.0-35.0) pg MCHC 33.1 (31.0-37.0) g/dL RDW 13.2 (11.5-15.5) % Plt Count 242 (150-450) k/uL MPV 6.9 Neutrophils % 70 % Lymphocytes % 18 % Monocytes % 5 % Eosinophils % 6 % Basophils % 1 % Neutrophils # 3.9 (1.3-7.7) k/uL Lymphocytes # 1.0 (1.0-4.8) k/uL Monocytes # 0.3 (0-1.0) k/uL Eosinophils # 0.3 (0-0.7) k/uL Basophils # 0.0 (0-0.2) k/uL PT 11.5 (9.0-12.0) sec INR 1.1 (<1.2) APTT 24.4 (22.0-30.0) sec Sodium 138 (137-145) mmol/L Potassium 4.0 (3.5-5.1) mmol/L Chloride 103 (98-107) mmol/L Carbon Dioxide 29 (22-30) mmol/L Anion Gap 6 mmol/L BUN 14 (9-20) mg/dL Creatinine 1.01 (0.66-1.25) mg/dL Est GFR (CKD-EPI)AfAm >90 (>60 ml/min/1.73 sqM) Est GFR (CKD-EPI)NonAf 82 (>60 ml/min/1.73 sqM) Glucose 99 (74-99) mg/dL Calcium 9.5 (8.4-10.2) mg/dL Total Bilirubin 0.7 (0.2-1.3) mg/dL AST 25 (17-59) U/L ALT 19 (4-49) U/L Alkaline Phosphatase 48 (38-126) U/L Troponin I (0.000-0.034) ng/mL Total Protein 7.4 (6.3-8.2) g/dL Albumin 4.4 (3.5-5.0) g/dL 05/01/20 Range/Units 15:10 WBC (3.8-10.6) k/uL RBC (4.30-5.90) m/uL Hgb (13.0-17.5) gm/dL Hct (39.0-53.0) % MCV (80.0-100.0) fL MCH (25.0-35.0) pg MCHC (31.0-37.0) g/dL RDW (11.5-15.5) % Plt Count (150-450) k/uL MPV Neutrophils % % Lymphocytes % % Monocytes % % Eosinophils % % Basophils % % Neutrophils # (1.3-7.7) k/uL Lymphocytes # (1.0-4.8) k/uL Monocytes # (0-1.0) k/uL Eosinophils # (0-0.7) k/uL Basophils # (0-0.2) k/uL PT (9.0-12.0) sec INR (<1.2) APTT (22.0-30.0) sec Sodium (137-145) mmol/L Potassium (3.5-5.1) mmol/L Chloride (98-107) mmol/L Carbon Dioxide (22-30) mmol/L Anion Gap mmol/L BUN (9-20) mg/dL Creatinine (0.66-1.25) mg/dL Est GFR (CKD-EPI)AfAm (>60 ml/min/1.73 sqM) Est GFR (CKD-EPI)NonAf (>60 ml/min/1.73 sqM) Glucose (74-99) mg/dL Calcium (8.4-10.2) mg/dL Total Bilirubin (0.2-1.3) mg/dL AST (17-59) U/L ALT (4-49) U/L Alkaline Phosphatase (38-126) U/L Troponin I <0.012 (0.000-0.034) ng/mL Total Protein (6.3-8.2) g/dL Albumin (3.5-5.0) g/dL - Radiology Data CT brain without contrast was obtained. Report was reviewed in its entirety. Impression by Dr. Paul shows nonspecific white matter demyelination, age- related atrophy, consider MRI is indicated for increased sensitivity. Two-view x-ray of the chest is obtained. Report is reviewed in its entirety. Impression by Dr. Martinez shows borderline mild cardiomegaly. Suspect underlying COPD. No definite acute process. (Ashanti Dean) Disposition Is patient prescribed a controlled substance at d/c from ED?: No Time of Disposition: 16:03 <Ashanti Dean - Last Filed: 05/01/20 16:04> <Michelle Oshea - Last Filed: 05/03/20 13:29> Clinical Impression: Arm paresthesia, right, Lightheaded Disposition: HOME SELF-CARE Condition: Good Instructions (If sedation given, give patient instructions): Paresthesia (ED), Lightheadedness (ED) Additional Instructions: Follow-up with your primary care physician for recheck as soon as possible. Discussed possible referral to neurology or MRI of your symptoms persist. Re turn to the emergency department for any new, worsening, or concerning symptoms. Referrals: Charles Shields MD [Primary Care Provider] - 1-2 days
[2020-05-01 15:41] VITALS: RESP 18
[2020-05-01 16:38] VITALS: BP 115/80; PULSE 63; TEMP 98
== END 2020-05-01 16:24 | disposition home or self-care (01) ==
LOC: EC 14:19
DX: R20.2 Paresthesia of skin (principal); R42 Dizziness and giddiness; E78.00 Pure hypercholesterolemia, unspecified; I10 Essential (primary) hypertension; F17.200 Nicotine dependence, unspecified, uncomplicated; Z90.49 Acquired absence of other specified parts of digestive tract
CPT/HCPCS: 36415; 70450; 71046; 80053; 84484; 85025; 85610; 85730; 93005

== ENCOUNTER → 2020-05-10 | Outpatient (CLI) | payer BC ==
--- NOTE | 2020-05-10 12:13 | XR ---
EXAMINATION TYPE: XR shoulder complete RT DATE OF EXAM: 05/10/2020 Comparison: None Clinical History: 60-year-old male R/O PROSTATE METS, PAIN IN TENDON, ARTHRITIS Findings: AC joint is intact. Some acromial space is preserved. No tendinous or bursal calcifications. No discr ete suspicious osteosclerotic areas are identified. No acute fracture, subluxation, dislocation seen. IMPRESSION: No acute osseous abnormality seen.
--- NOTE | 2020-05-10 12:15 | XR ---
EXAMINATION TYPE: XR cervical spine comp DATE OF EXAM: 05/10/2020 COMPARISON: None HISTORY: 60-year-old male R/O PROSTATE METS, PAIN IN TENDON, ARTHRITIS TECHNIQUE: 6 views FINDINGS: Uncovertebral joint arthropathy mid and lower cervical spine. Straightening of the normal cervical lo rdosis. No predental space widening or prevertebral soft tissue swelling. Mild disc/endplate degenera tive change mid to lower cervical spine. Alignment is maintained. No suspicious sclerotic lesions are identified. Normal odontoid view. IMPRESSION: No definite suspicious sclerotic lesions are identified. Mild to moderate spondylotic change mid to l ower cervical spine. Preserved alignment.
--- NOTE | 2020-05-10 12:21 | XR ---
EXAMINATION TYPE: XR thoracic spine complete DATE OF EXAM: 05/10/2020 Comparison: None Clinical History: 60-year-old male PAIN AND TENDERNESS Findings: 12 rib-bearing thoracic vertebral bodies. Moderate endplate spondylosis mid and lower thoracic spine with accentuated lower thoracic kyphosis. To the extent visualized, vertebral body heights appear char ntained. There appears to be a slight degenerative grade 1 anterolisthesis in the mid thoracic spine. Impression: Moderate endplate spondylosis mid to lower thoracic spine with accentuated lower thoracic kyphosis. D egenerative grade 1 anterolisthesis in the mid thoracic spine.
== END | disposition home or self-care (01) ==
LOC: RADXRMAIN 10:20
PROVIDERS: ATTEND Internal Medicine
DX: M47.814 Spondylosis without myelopathy or radiculopathy, thoracic region (principal); M40.204 Unspecified kyphosis, thoracic region; M43.14 Spondylolisthesis, thoracic region; M47.812 Spondylosis without myelopathy or radiculopathy, cervical region; M25.511 Pain in right shoulder
CPT/HCPCS: 72050; 72072

== ENCOUNTER → 2020-07-18 | Outpatient (CLI) | payer BC ==
[2020-07-18 16:18] LABS: Basophils # (A) 0.02 X 10*3/uL (0.00-0.10); Basophils % (A) 0.5 %; Eosinophils # (A) 0.13 X 10*3/uL (0.04-0.35); Eosinophils % (A) 3.1 %; HCT 42.5 % (39.6-50.0); HGB 13.2 g/dL (13.0-17.0); Lymphocytes # (A) 1.01 X 10*3/uL (0.90-5.00); Lymphocytes % (A) 24.2 %; MCHC 31.1 g/dL (32.0-37.0); MCV 87.1 fL (80.0-97.0); Mean Platelet Volume 10.1 fL (9.5-12.2); Monocytes # (A) 0.27 X 10*3/uL (0.20-1.00); Monocytes % (A) 6.5 %; Neutrophils # (A) 2.74 X 10*3/uL (1.80-7.70); Neutrophils % (A) 65.5 %; Platelet Count 266 X 10*3/uL (140-440); RBC 4.88 X 10*6/uL (4.40-5.60); RDW 12.7 % (11.5-14.5); WBC 4.18 X 10*3/uL (4.50-10.00)
[2020-07-18 16:33] LABS: African American GFR (CKD) 95.7 (60.0-200.0); Albumin 4.3 g/dL (3.80-4.90); Albumin/Globulin Ratio 1.72 (1.60-3.17); Anion Gap 6.5 mmol/L (4.00-12.00); Calcium 9.3 mg/dL (8.7-10.3); Carbon Dioxide 28.5 mmol/L (21.6-31.8); Globulin 2.5 g/dL (1.6-3.3); Non-African American GFR(CKD) 82.6 (60.0-200.0); Potassium 4.6 mmol/L (3.5-5.5); Total Bilirubin 0.6 mg/dL (0.2-1.2); Total Protein 6.8 g/dL (6.2-8.2)
[2020-07-18 16:41] LABS: Prostate Specific Antigen 5.2 ng/mL (0.0-3.5)
[2020-07-18 18:56] LABS: Hemoglobin A1C 6.1 % (4.0-6.0)
[2020-07-18 19:04] LABS: Erythrocyte Sedimentation Rate 9 mm/Hr (0-20)
== END | disposition home or self-care (01) ==
LOC: LABWHC1 07:19
PROVIDERS: ATTEND Radiology Radiation Oncology
DX: C61 Malignant neoplasm of prostate (principal); E11.65 Type 2 diabetes mellitus with hyperglycemia; N40.0 Benign prostatic hyperplasia without lower urinary tract symptoms; M10.9 Gout, unspecified; E55.9 Vitamin D deficiency, unspecified; Z92.3 Personal history of irradiation; Z79.818 Long term (current) use of other agents affecting estrogen receptors and estrogen levels; Z87.891 Personal history of nicotine dependence
CPT/HCPCS: 36415; 80053; 82306; 83036; 84153; 84550; 85025; 85652

== ENCOUNTER 2020-09-03 05:54 | Emergency (ER) | payer BC, OTHER ==
[2020-09-03 06:00] VITALS: TEMP 98
[2020-09-03] MEDS ORDERED: DIPH,PERTUS(ACELL)TETVAC-LF 0.5 ML VIAL IM ONE (06:07)
[2020-09-03] MEDS ORDERED: MORPHINE SULFATE 4 MG/ML SYRINGE IM STA (06:07)
[2020-09-03] MEDS ORDERED: ceFAZolin 1,000 MG VIAL (IM USE) IM STA (06:07)
[2020-09-03] MEDS ORDERED: LIDOCAINE 1% INJ 10MG/ML (20 ML MDV) SQ ONE (06:09)
--- NOTE | 2020-09-03 06:24 | XR ---
EXAMINATION TYPE: XR hand limited LT DATE OF EXAM: 09/03/2020 COMPARISON: NONE HISTORY: Amputation TECHNIQUE: 3 views FINDINGS: There is amputation deformity at the tip of the little finger of the left hand. There is ex posure of the tuft of the distal phalanx. I see no foreign body. The metacarpals are intact. IMPRESSION: There is soft tissue amputation deformity at the tip of the little finger left hand.
[2020-09-03] MEDS ORDERED: GELATIN SPONGE,ABSORB (SMALL) 1 EACH SPONGE TOPICAL STA (06:50)
--- NOTE | 2020-09-03 07:26 | ED ---
Upper Extremity HPI - General Chief Complaint: Extremity Injury, Upper Stated Complaint: IHS LT finger injury Time Seen by Provider: 09/03/20 06:05 Source: patient Mode of arrival: ambulatory Limitations: no limitations - History of Present Illness Initial Comments: Patient is a 60-year-old male presenting to the emergency Department with complaints of a work injury to his left little finger. Patient states he got it smashed in a piece of equipment at work. He states this happened just prior to arrival. The tip of his left fifth digit is missing. Bleeding is controlled with bandage at this time. He states he is unsure of his tetanus vaccine. Patient states he did the same thing to his right little finger in 2012, Dr. Downey repaired that. He has no further complaints at this time. - Related Data Home Medications Medication Instructions Recorded Confirmed Doxazosin [Cardura] 4 mg PO QAM 03/21/19 01/17/20 amLODIPine [Norvasc] 10 mg PO QAM 03/21/19 01/17/20 lisinopriL 20 mg PO HS 03/21/19 01/17/20 Cholecalciferol [Vitamin D3 (25 5,000 unit PO DAILY 01/17/20 01/17/20 Mcg = 1000 Iu)] Pravastatin Sodium [Pravachol] 20 mg PO HS 01/17/20 01/17/20 Previous Rx's Medication Instructions Recorded Cephalexin [Keflex] 500 mg PO Q6HR 5 Days #20 cap 09/03/20 HYDROcodone/APAP 7.5-325MG [[facility] 1 tab PO Q6HR PRN 3 Days #12 tab 09/03/20 7.5-325] Allergies Allergy/AdvReac Type Severity Reaction Status Date / Time No Known Allergies Allergy Verified 09/03/20 06:00 Review of Systems ROS Statement: Those systems with pertinent positive or pertinent negative responses have been documented in the HPI. ROS Other: All systems not noted in ROS Statement are negative. Past Medical History Past Medical History: Hypertension History of Any Multi-Drug Resistant Organisms: None Reported Past Surgical History: Appendectomy Past Psychological History: No Psychological Hx Reported Smoking Status: Former smoker Past Alcohol Use History: Rare Past Drug Use History: None Reported General Exam - General Exam Comments Initial Comments: GENERAL: Patient is well-developed and well-nourished. Patient is nontoxic and in moderate distress. HEAD: Atraumatic, normocephalic. EYES: Pupils equal round and reactive to light, extraocular movements intact, sclera anicteric, conjunctiva are normal. Eyelids were unremarkable. ENT: Nares patent, oropharynx clear without exudates. Moist mucous membranes. NECK: Normal range of motion, supple without lymphadenopathy or JVD. LUNGS: Unlabored respirations. Breath sounds clear to auscultation bilaterally and equal. No wheezes rales or rhonchi. HEART: Regular rate and rhythm without murmurs, rubs or gallops. ABDOMEN: Soft, nontender, normoactive bowel sounds. No guarding, no rebound. No masses appreciated. : Deferred MUSCULOSKELETAL: Patient has amputation of the distal soft tissue of the left fifth digit, there is partial nail avulsed as well. Bleeding is controlled. He is neurovascular intact. SKIN: Warm, Dry, normal turgor, no rashes. Patient has an open fracture injury to the distal end of the left fifth digit, bleeding is controlled. There is an avulsed tissue and partial avulsion of the nail. Limitations: no limitations Course Vital Signs 09/03/20 05:56 Temperature 98 F Pulse Rate 101 H Respiratory 20 Rate Blood Pressure 135/82 O2 Sat by Pulse 97 Oximetry Procedures - Laceration Laceration #1 Consent Obtained: verbal consent Indication: laceration (Amputation of the distal end of left fifth digit) Site: other (Left fifth digit) Size (cm): 3 Description: avulsion Anesthetic Used: lidocaine 1% Anesthesia Technique: nerve block Patient Tolerated Procedure: well Additional Comments: Applied a digital block to the left fifth digit, patient's wound was cleaned with 1 L of normal saline. Patient's wound was bandaged, covered. He tolerated procedure well. Medical Decision Making - Medical Decision Making Patient is a 60-year-old male with an open partial amputation of the distal end of the left fifth digit that happened at work today. Bleeding is controlled. Patient was given Ancef, pain control as well as updated tetanus. I did give him a digital block to aid with pain, patient's wound was washed out, covered with a bandage. I did speak to Dr. Fatima who is covering for Dr. Downey, and he is in agreement with this treatment. Patient will call orthopedics this morning for an appointment. I will give him continued antibiotics and pain medicine to go home with. Patient is stable for discharge and he is in agreement this plan of care. Case discussed with Dr. Niño. Disposition Clinical Impression: Open wound of left little finger, Open fracture of tuft of distal phalanx of finger Disposition: HOME SELF-CARE Condition: Stable Instructions (If sedation given, give patient instructions): Crush Injury (ED) Additional Instructions: Please return to the Emergency Department if symptoms worsen or any other concerns. Take antibiotics as prescribed. Alternate between Tylenol and Motrin for any discomfort, may take [facility] for more severe pain. Follow up with orthopedics Prescriptions: Cephalexin [Keflex] 500 mg PO Q6HR 5 Days #20 cap HYDROcodone/APAP 7.5-325MG [[facility] 7.5-325] 1 tab PO Q6HR PRN 3 Days #12 tab PRN Reason: Pain Is patient prescribed a controlled substance at d/c from ED?: Yes When asked, does pt state using other controlled substances?: No If prescribed controlled substance>3 days was MAPS reviewed?: Prescribed <3 Days If opioid is for acute pain is fill amount 7 days or less?: Yes If Rx opioid, was Start Talking consent form obtained?: Yes Referrals: Charles Shields MD [Primary Care Provider] - 1-2 days Jed Downey DO [Doctor of Osteopathic Medicine] - 1-2 days Time of Disposition: 07:26
[2020-09-03 07:37] VITALS: BP 136/86; PULSE 92; RESP 18
== END 2020-09-03 07:37 | disposition home or self-care (01) ==
LOC: EC 05:54
DX: S62.637B Displaced fracture of distal phalanx of left little finger, initial encounter for open fracture (principal); I10 Essential (primary) hypertension; Z87.891 Personal history of nicotine dependence; Z79.899 Other long term (current) drug therapy; Z23 Encounter for immunization; W23.0XXA Caught, crushed, jammed, or pinched between moving objects, initial encounter; Y99.0 Civilian activity done for income or pay
CPT/HCPCS: 73120; 90715; 64450; 96372 ×2; 90471; 99283; J2270; J0690; J2001

== ENCOUNTER → 2020-10-23 | Outpatient (CLI) | payer BC | END | disposition home or self-care (01) | LOC: LABWHC1 07:13 | PROVIDERS: ATTEND Radiology Radiation Oncology | DX: C61 Malignant neoplasm of prostate (principal); Z79.818 Long term (current) use of other agents affecting estrogen receptors and estrogen levels; Z92.3 Personal history of irradiation; Z87.891 Personal history of nicotine dependence | CPT/HCPCS: 36415; 84153 ==

== ENCOUNTER → 2020-11-29 | Outpatient (CLI) | payer BC | END | disposition home or self-care (01) | LOC: LABWHC1 08:48 | PROVIDERS: ATTEND Internal Medicine | DX: E11.65 Type 2 diabetes mellitus with hyperglycemia (principal) | CPT/HCPCS: 36415; 83036 ==

== ENCOUNTER → 2020-12-20 | Outpatient (CLI) | payer BC ==
[2020-12-20 11:36] LABS: African American GFR (CKD) >90 (>60 ml/min/1.73 sqM); Blood Urea Nitrogen 15 mg/dL (9-20); Non-African American GFR(CKD) 80 (>60 ml/min/1.73 sqM)
--- NOTE | 2020-12-20 15:20 | CT ---
EXAMINATION TYPE: CT ChestAbdPelvis w con DATE OF EXAM: 12/20/2020 COMPARISON: CT chest 01/11/2020, pelvis 12/06/2019, and prior abdomen pelvis 02/10/2019 HISTORY: 60-year-old male Multiple lipomas thoracic spine. 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 History of prostate cancer with radiation therapy. TECHNIQUE: Contiguous axial scanning of the chest, abdomen, and pelvis performed with IV Contrast, pa tient injected with 100 ml mL of Isovue 300. Delayed images through the kidneys were obtained. Bedoya l/sagittal reconstructions performed. CT DLP: 2253 mGycm Automated exposure control for dose reduction was used. FINDINGS: CHEST: Heart normal size without pericardial effusion. Mildly aneurysmal aortic root at 4.3 cm and ascending aorta 4.4 cm, both unchanged. Conventional arch was a branching anatomy. No thoracic lymphadenopathy by CT size criteria. Mildly enlarged caliber to the main right and left pulmonary arteries measuring up to 2.8 cm may refl ect underlying pulmonary arterial hypertension. No consolidation or pleural effusion. ABDOMEN: Allowing for arterial phase imaging, no focal liver lesion is seen. Portal venous system patent on th e delayed kidney images. No biliary ductal dilatation. Gallbladder, adrenal glands, kidneys, spleen with hilar splenule, and pancreas within normal limits. No dilated small bowel, free fluid, or free air. No mesenteric or retroperitoneal lymphadenopathy. Sc attered small mesenteric lymph nodes measure up to 7 mm in the left mid abdomen. These are unchanged. No retroperitoneal lymphadenopathy. Scattered mild stool burden. No pericolonic inflammatory change. Borderline ectatic distal abdominal aorta 2.5 cm. Redemonstrated aneurysmal left common iliac artery at 2.7 cm versus 2.6 cm, previously. Right common iliac artery 2.4 cm, unchanged. PELVIS: Bladder distended. Prostate gland measures 4.3 cm wide versus 3.7 cm on 02/10/2019. Redemonstrated sm all fat-containing indirect left inguinal hernia. No abnormal fluid collection in the pelvis or pelvi c lymphadenopathy. BONES: Stable bone island left femoral head neck junction. Facet arthropathy lower lumbar spine. Grade 1 ant erolisthesis L4-L5. Mild to moderate degenerative disc disease mid to lower thoracic spine. Probable posterior midline subcutaneous lipoma measuring 10.0 cm craniocaudal by 8.6 cm wide by 2.7 c m, sagittal image 85 and axial image 34. Measuring 9.5 x 8.9 x 3.3 cm, previously on 01/11/2020, not significantly changed. No suspicious internal soft tissue component seen. IMPRESSION: 1. PROSTATE GLAND MEASURES 4.3 CM WIDE VERSUS 3.7 CM ON 02/10/2019. NO SUSPICIOUS LYMPHADENOPATHY IS SEEN. 2. STABLE ASCENDING AORTIC ANEURYSM AT 4.4 CM AND RELATIVELY STABLE ANEURYSMAL LEFT AND RIGHT COMMON ILIAC ARTERIES MEASURING 2.7 AND 2.4 CM, RESPECTIVELY. 3. A SUBCUTANEOUS OVAL FATTY TUMOR ALONG THE POSTERIOR MIDLINE OF THE THORAX MEASURING 10 CM CRANIAL CAUDAL BY 8.6 CM WIDE, MOST LIKELY LIPOMA. NOT SIGNIFICANTLY CHANGED FROM 01/11/2020. GIVEN THE SIZE, ONGOING CLINICAL SURVEILLANCE IS RECOMMENDED. 4. POSSIBLE UNDERLYING PULMONARY HYPERTENSION.
== END | disposition home or self-care (01) ==
LOC: RADCTMAIN 10:21
PROVIDERS: ATTEND Orthopaedic Surgery Orthopaedic Surgery of the Spine
DX: C61 Malignant neoplasm of prostate (principal); I71.2 Thoracic aortic aneurysm, without rupture; I72.3 Aneurysm of iliac artery
CPT/HCPCS: 82565; 84520; 71260; 74177; 36415; Q9967

== ENCOUNTER → 2021-01-22 | Outpatient (CLI) | payer BC ==
[2021-01-22 16:03] LABS: ALT 18 U/L (10-49); AST 13 U/L (14-35); Chol/HDL Ratio 2.75 Ratio; LDL Cholesterol,Calculated 46.9 mg/dL (0.0-131.0); VLDL Calculation 11.64 mg/dL (5.00-40.00)
== END | disposition home or self-care (01) ==
LOC: LABWHC1 09:46
PROVIDERS: ATTEND Internal Medicine Cardiovascular Disease
DX: E78.2 Mixed hyperlipidemia (principal)
CPT/HCPCS: 36415; 80061; 84450; 84460

== ENCOUNTER → 2021-02-03 | Outpatient (CLI) | payer BC ==
[2021-02-03 17:18] LABS: Basophils % (A) 1 %; Eosinophils # (A) 0.1 k/uL (0-0.7); Eosinophils % (A) 2 %; HCT 38.8 % (39.0-53.0); HGB 12.7 gm/dL (13.0-17.5); Lymphocytes # (A) 1.8 k/uL (1.0-4.8); Lymphocytes % (A) 33 %; MCH 27.8 pg (25.0-35.0); MCHC 32.8 g/dL (31.0-37.0); MCV 84.7 fL (80.0-100.0); Mean Platelet Volume 7.6; Monocytes # (A) 0.3 k/uL (0-1.0); Monocytes % (A) 5 %; Neutrophils # (A) 3.1 k/uL (1.3-7.7); Neutrophils % (A) 58 %; Platelet Count 243 k/uL (150-450); RBC 4.58 m/uL (4.30-5.90); RDW 12.9 % (11.5-15.5); WBC 5.4 k/uL (3.8-10.6)
[2021-02-03 17:28] LABS: African American GFR (CKD) >90 (>60 ml/min/1.73 sqM); Anion Gap 9 mmol/L; Blood Urea Nitrogen 20 mg/dL (9-20); Calcium 9.4 mg/dL (8.4-10.2); Carbon Dioxide 28 mmol/L (22-30); Chloride 101 mmol/L (98-107); Glucose 79 mg/dL (74-99); INR 1.1 (<1.2); Non-African American GFR(CKD) 81 (>60 ml/min/1.73 sqM); Partial Thromboplastin Time 26.4 sec (22.0-30.0); Potassium 4.4 mmol/L (3.5-5.1); Prothrombin Time 11.9 sec (9.0-12.0); Sodium 138 mmol/L (137-145)
[2021-02-03 17:35] LABS: Appearance,Urine Clear (Clear); Bilirubin,Urine Negative (Negative); Blood,Urine Trace (Negative); Color,Urine Yellow; Glucose,Urine (UA) Negative (Negative); Ketones,Urine Negative (Negative); Leukocyte Esterase,Urine Trace (Negative); Nitrite,Urine Negative (Negative); Protein,Urine Negative (Negative); RBC,Urine 1 /hpf (0-5); Specific Gravity,Urine 1.016 (1.001-1.035); Squamous Epithelial Cell,Urine 1 /hpf (0-4); Urobilinogen,Urine <2.0 mg/dL (<2.0); WBC,Urine 3 /hpf (0-5)
--- NOTE | 2021-02-03 19:45 | XR ---
EXAMINATION TYPE: XR chest 2V DATE OF EXAM: 02/03/2021 COMPARISON: Chest x-ray May 01, 2020. Chest CT December 20, 2020 HISTORY: Subcutaneous masses. TECHNIQUE: Frontal and lateral views of the chest are obtained. FINDINGS: There is no suspicious new focal air space opacity, pleural effusion, or pneumothorax seen . The cardiac silhouette size is stable and within normal limits. The osseous structures are intac t. IMPRESSION: No acute cardiopulmonary process. No significant change from prior studies.
== END | disposition home or self-care (01) ==
LOC: LABPAT 16:04
PROVIDERS: ATTEND Orthopaedic Surgery Orthopaedic Surgery of the Spine
DX: Z01.812 Encounter for preprocedural laboratory examination (principal); R22.9 Localized swelling, mass and lump, unspecified
CPT/HCPCS: 71046; 80048; 81001; 85025; 85610; 85730; 93005

== ENCOUNTER 2021-02-17 06:27 | Day surgery (SDC) | payer BC ==
[2021-02-13 14:50] VITALS: BMI 37.9
[~2021-02-17 06:27] MED LIST changes: -DEXAMETHASONE SOD PHOSPHATE 4 MG/ML 1 ML VIAL IV ONE; -HYDROmorphone 0.5 MG/0.5 ML SYRINGE IVP PRN; -LACTATED RINGERS 1,000 ML IV SCH; -LIDOCAINE 1% (10MG/ML) FOR IV START INTRADERMA PRN; -MIDAZOLAM 2 MG/2 ML VIAL IV PRN; -ONDANSETRON 4 MG/2 ML VIAL IVP ONE; +ceFAZolin 1,000 MG in SODIUM CHLORIDE 0.9% IRRIGATIO 1,000 ML IRRIGATION PRN; +ceFAZolin 3 GM in SODIUM CHLORIDE 0.9% 100 ML IVPB PRN
[2021-02-17] MEDS ORDERED: DEXAMETHASONE SOD PHOSPHATE 4 MG/ML 1 ML VIAL IV ONE (06:43)
[2021-02-17] MEDS ORDERED: ONDANSETRON 4 MG/2 ML VIAL IVP ONE (06:43)
[2021-02-17] MEDS ORDERED: LACTATED RINGERS 1,000 ML IV SCH (06:43)
[2021-02-17] MEDS ORDERED: LIDOCAINE 1% (10MG/ML) FOR IV START SQ ONE (07:21)
[2021-02-17] MEDS ORDERED: MIDAZOLAM 2 MG/2 ML VIAL ONE (07:25)
[2021-02-17] MEDS ORDERED: SUCCINYLCHOLINE CHLORIDE VIAL 200 MG/10 ML VIAL IV ONE (07:25)
[2021-02-17] MEDS ORDERED: ALBUTEROL HFA INHALER INHALATION ONE (07:25)
[2021-02-17] MEDS ORDERED: PROPOFOL 10 MG/ML 20 ML VIAL IV ONE (07:25)
[2021-02-17] MEDS ORDERED: LIDOCAINE 1% INJ 10MG/ML (20 ML MDV) ONE (07:25)
[2021-02-17] MEDS ORDERED: fentaNYL (PF) 50 MCG/ML 2 ML AMP ONE (07:25)
[2021-02-17] MEDS ORDERED: PHENYLEPHRINE-0.9% NACL SYG 1,000 MCG/10 ML SYRINGE ONE (07:25)
[2021-02-17] MEDS ORDERED: ePHEDrine 50 MG/ML 1 ML AMP ONE (07:25)
[2021-02-17] MEDS ORDERED: BUPIVACAINE (PF) 0.25% 30 ML VIAL SQ ONE (08:03)
[2021-02-17] MEDS ORDERED: LACTATED RINGERS 1,000 ML IV ONE (08:35)
[2021-02-17] MEDS ORDERED: HYDROmorphone 1 MG/ML 1 ML SYRINGE IVP PRN (09:30)
[2021-02-17] MEDS ORDERED: HYDROcodone/APAP 10-325MG 1 EACH TAB PO PRN ×2 (09:30→09:33)
[2021-02-17] MEDS ORDERED: CYCLOBENZAPRINE 10 MG TAB PO PRN (09:30)
[2021-02-17] MEDS ORDERED: HYDROmorphone 0.5 MG/0.5 ML SYRINGE IVP PRN (09:30)
[2021-02-17] MEDS ORDERED: BENZOCAINE/MENTHOL LOZENG 1 EACH LOZENGE MUCOUS MEM PRN (09:30)
[2021-02-17] MEDS ORDERED: MAGNESIUM HYDROXIDE 2,400 MG/10 ML CUP PO PRN ×2 (09:30)
[2021-02-17] MEDS ORDERED: ONDANSETRON 4 MG/2 ML VIAL IVP PRN (09:30)
[2021-02-17] MEDS ORDERED: SODIUM CHLORIDE 0.9% 1,000 ML IV SCH (09:30)
[2021-02-17 09:35] VITALS: TEMP 97.1
[2021-02-17] MEDS: HYDROmorphone 0.5 MG/0.5 ML SYRINGE IVP PRN ×4 (09:40→10:12)
--- NOTE | 2021-02-17 09:50 | P.OP ---
Date of Procedure: 02/17/21 Preoperative Diagnosis: Large subcutaneous mass, presumed lipoma at mid thoracic spine Subcutaneous mass, presumed lipoma at right flank Thoracic wall and flank wall pain Postoperative Diagnosis: Large subcutaneous mass, presumed lipoma at mid thoracic spine Subcutaneous mass, presumed lipoma at right flank Thoracic wall and flank wall pain Some involvement of the fascia overlying the contracted dorsal muscular suture and flank musculature Anesthesia: GETA Pathology: other (Subcutaneous mass, presumed lipoma measuring 14 x 10 x 5 cm at the thoracic spine and 5 x 5 x 2 cm at the right flank sent separately in formalin) Condition: stable Disposition: PACU Description of Procedure: BRIEF OPERATIVE NOTE Preoperative Diagnosis: Large subcutaneous mass, presumed lipoma at mid thoracic spine Subcutaneous mass, presumed lipoma at right flank Thoracic wall and flank wall pain Postoperative Diagnosis: Same plus some involvement of the thoracodorsal fascia at the thoracic spine and right flank fascia Procedure: Excision of subcu mass at the thoracic spine and through a separate incision at the right flank. Excision of thoracic subcu mass involving the fascial tissue over the muscle approximately 14 x 10 x 5 cm in size and excision of right flank subcutaneous mass approximately 5 x 5 x 2 cm in size also involving subfascial tissue Surgeon: Dr. Fatima Blood Donor Recruiter Supervisor: Felipe LOWE Anesthesia: General anesthesia Estimated blood loss: Less than 50 mL Specimen: Thoracic subcutaneous mass and right flank subcutaneous mass sent separately to pathology in formalin Complications: None apparent Components implanted: None Disposition: To recovery room in good stable condition. OPERATIVE INDICATIONS The patient has been having issues in their back over the past few years has he has been noticing of enlarging mass at his mid thoracic area. He has been also been noticing a mass developing in his right flank which is been painful for him as well. He denied any fevers chills or injuries. He was not having any neurologic change those having pain and discomfort over the areas themselves. Clinically he was found have a large central subcu mass at his mid and upper thoracic spine which grossly measured 15 x 10 cm and was protruding posteriorly. There is no significant skin changes or dimpling or rashes at the area. His right flank he was also having tenderness just below his ribs on the right side with palpation of the mass measured about 5 x 5 cm. These were a couple for him and with her enlarging size we felt that removal of the masses would be diagnostic and potentially therapeutic for him as well. We discussed this at length in clinic. We discussed the risk of occasions alternatives and benefits of different treatment options including surgery. The risks of surgery including but not limited to risk of bleeding risk of infection risk and need for further surgery risk of decreased motion risk of recurrence risk of further exploration unexpected was all explained to him and all of the questions were answered to best my ability and leg which he can understand. The patient also understood that we are in a period of a global and and those risks are involved as well. He understood these and elected proceed with surgery. OPERATIVE SUMMARY After discussing all the risks, patient alternatives and benefits at length, the patient elected to proceed with surgical intervention, signed informed consent, and presented for their procedure. The patient was seen and examined in the preoperative holding area and the surgical site was marked at the thoracic area and the right flank. The patient was given antibiotics and brought to the operating room. The patient was sedated and intubated by anesthesia in standard fashion. The patient was positioned on to the operating room table in a prone position on the appropriate well-padded and well molded bilateral chest rolls. We were careful to pad any bony prominences and pressure points. We were careful to maintain the patient's cervical spine and good neutral alignment and position throughout. The patient was prepped and draped in a normal standard fashion. An appropriate timeout and keystone protocol performed. We were able to proceed with the surgery. The local wound area was infiltrated with local anesthetic. An incision was made at the midline of the upper thoracic area approximately 10 cm in length. As able to dissect at subcutaneous space and the large fatty mass was easily identified. I was able to extend out over the areas of the fatty mass. There is a number of fibrous connections which were dissected and cauterized. I was able to dissect in each plane and encircle the mass. There is significant fibrotic connections with the fascia and some of the fascia had removed at the musculature as well I did not have to extend into the muscle itself or into any bone. I was careful to leave good thickness of the subcutaneous fatty space for the skin as able to remove the thoracic mass in the large fragments. I was able to cauterize any bleeding. There is no evidence of further involvement and I felt I had good margins. The mass was passed off to be sent to pathology measuring approximately 14 x 10 x 5 cm. It appeared to be fatty in nature. There are no apparent calcifications. The wound was irrigated and suctioned dry. We did a layered closure to close off any space and gave good reapproximation of the subcue underlying tissue with the and had good reapproximation of the incision. For a good plastics closure. We turned our attention to the right flank where the mass was easily palpable. A transverse incision over the skin lines was made approximately 4 cm in length. As able to dissect at subcu space and easily identify the subcutaneous lipoma. I was able to dissect it off and remove it it had some attachment to the underlying fascia which had removed as well. I had good hemostasis without any evidence of bleeding and good margins. I was able to close that space after irrigating suctioned dry. We close down any space with subcutaneous sutures and reapproximated the wound well for a reapproximation and closure with 4-0 Vicryl. The wounds are cleaned and dried and closed with Island dressing. I then placed a bulky pressure dressing over the areas to try to prevent swelling and approximation fluid. The drapes were broken down the patient was gently rolled back supine position onto his stretcher woken up by anesthesia extubated and brought to recovery room in good stable condition The patient will be able to be discharged home after appropriate postoperative care, medical management and monitoring, and once he meets appropriate post anesthesia care unit criteria. I'll plan to see him back in the office. We will continue to follow them closely about the postoperative course.
[2021-02-17] MEDS ORDERED: HYDROmorphone 0.5 MG/0.5 ML SYRINGE IVP ONE (10:25)
[2021-02-17 10:59] VITALS: RESP 18
[2021-02-17 11:49] VITALS: BP 98/66; PULSE 78
[2021-02-17] MEDS ORDERED: PRAVASTATIN SODIUM 20 MG TAB PO SCH (21:00)
[2021-02-17] MEDS ORDERED: NON FORMULARY DRUG (Lisinopril [Lisinopril] 40 MG Tablet) PO SCH (21:00)
[2021-02-18] MEDS ORDERED: NON FORMULARY DRUG (Cholecalciferol 1,000 UNIT Tab) PO SCH (09:00)
[2021-02-18] MEDS ORDERED: amLODIPine 10 MG TAB PO SCH (09:00)
[2021-02-18] MEDS ORDERED: DOXAZOSIN 4 MG TAB PO SCH (09:00)
== END 2021-02-17 11:50 | disposition home or self-care (01) ==
LOC: OR 06:27
PROVIDERS: ATTEND Orthopaedic Surgery Orthopaedic Surgery of the Spine
DX: D17.1 Benign lipomatous neoplasm of skin and subcutaneous tissue of trunk (principal); I10 Essential (primary) hypertension; E78.5 Hyperlipidemia, unspecified; N40.0 Benign prostatic hyperplasia without lower urinary tract symptoms; J98.4 Other disorders of lung; M10.9 Gout, unspecified; R42 Dizziness and giddiness; G44.86 Cervicogenic headache; Z87.891 Personal history of nicotine dependence; Z82.49 Family history of ischemic heart disease and other diseases of the circulatory system; I71.4 Abdominal aortic aneurysm, without rupture; M19.90 Unspecified osteoarthritis, unspecified site; Z98.890 Other specified postprocedural states; Z87.11 Personal history of peptic ulcer disease; Z85.46 Personal history of malignant neoplasm of prostate; Z79.891 Long term (current) use of opiate analgesic; Z92.3 Personal history of irradiation; Z79.899 Other long term (current) drug therapy
CPT/HCPCS: 88307; 21931 ×2; J2250; J0330; J0690; J2405; J2001; J3010; J2370; J2704; J1170

== ENCOUNTER → 2021-02-21 | Outpatient (CLI) | payer BC | END | disposition home or self-care (01) | LOC: LABWHC1 08:32 | PROVIDERS: ATTEND Radiology Radiation Oncology | DX: C61 Malignant neoplasm of prostate (principal); Z92.3 Personal history of irradiation; Z87.891 Personal history of nicotine dependence; Z79.818 Long term (current) use of other agents affecting estrogen receptors and estrogen levels | CPT/HCPCS: 36415; 84153 ==

== ENCOUNTER 2021-03-11 14:02 | Emergency (ER) | payer BC, OTHER ==
[2021-03-11 14:32] VITALS: TEMP 99.1
[2021-03-11] MEDS ORDERED: SULFAMETHOX-TMP 800-160MG 1 EACH TAB PO STA (16:08)
--- NOTE | 2021-03-11 16:16 | ED ---
General Adult HPI - General Chief complaint: Wound/Laceration Stated complaint: Post op infection Time Seen by Provider: 03/11/21 15:58 Source: patient, RN notes reviewed Mode of arrival: ambulatory Limitations: no limitations - History of Present Illness Initial comments: This is a pleasant 61-year-old male who presents to the emergency department complaining of drainage from a wound to his right back and flank area. Patient had a lipoma removed on February [address] Fatima. Seeing orthopedic associates for back problems. Patient has been on 2 rounds of Keflex but states that this morning he noticed yellow drainage from the area. There's been no fever. Chills. Patient has no history of MRSA. History of systems - Related Data Home Medications Medication Instructions Recorded Confirmed Doxazosin [Cardura] 4 mg PO QAM 03/21/19 02/17/21 amLODIPine [Norvasc] 10 mg PO QAM 03/21/19 02/17/21 lisinopriL 20 mg PO HS 03/21/19 02/17/21 Cholecalciferol [Vitamin D3 (25 5,000 unit PO DAILY 01/17/20 02/17/21 Mcg = 1000 Iu)] Pravastatin Sodium [Pravachol] 20 mg PO HS 01/17/20 02/17/21 HYDROcodone/APAP 10-325MG [[place] 1 tab PO Q6HR PRN 02/13/21 02/17/21 10-325] Previous Rx's Medication Instructions Recorded HYDROcodone/APAP 10-325MG [[place] 1 tab PO Q6HR PRN 3 Days #28 tab 02/17/21 10-325] Sulfamethox-Tmp 800-160Mg [Bactrim 1 each PO Q12HR 10 Days #20 tab 03/11/21 DS 800-160 mg] Allergies Allergy/AdvReac Type Severity Reaction Status Date / Time No Known Allergies Allergy Verified 03/11/21 14:32 Review of Systems ROS Statement: Those systems with pertinent positive or pertinent negative responses have been documented in the HPI. ROS Other: All systems not noted in ROS Statement are negative. Past Medical History Past Medical History: Hypertension History of Any Multi-Drug Resistant Organisms: None Reported Past Surgical History: Appendectomy Past Psychological History: No Psychological Hx Reported Smoking Status: Former smoker Past Alcohol Use History: None Reported Past Drug Use History: None Reported General Exam - General Exam Comments Initial Comments: Nontoxic appearing male in no distress. Present with open wound to the right flank from a surgical site from lipoma removal. Serum sanguinous drainage with white yellow tint noted from the site. Limitations: no limitations General appearance: alert, in no apparent distress Head exam: Present: atraumatic, normocephalic, normal inspection Eye exam: Present: normal appearance, PERRL, EOMI. Absent: scleral icterus, conjunctival injection, periorbital swelling ENT exam: Present: normal exam, mucous membranes moist Neck exam: Present: normal inspection. Absent: tenderness, meningismus, lymphadenopathy Respiratory exam: Present: normal lung sounds bilaterally. Absent: respiratory distress, wheezes, rales, rhonchi, stridor Cardiovascular Exam: Present: regular rate, normal rhythm, normal heart sounds. Absent: systolic murmur, diastolic murmur, rubs, gallop, clicks GI/Abdominal exam: Present: soft, normal bowel sounds. Absent: distended, tenderness, guarding, rebound, rigid Extremities exam: Present: normal inspection, full ROM, normal capillary refill. Absent: tenderness, pedal edema, joint swelling, calf tenderness Back exam: Present: normal inspection Neurological exam: Present: alert, oriented X3, CN II-XII intact Psychiatric exam: Present: normal affect, normal mood Skin exam: Present: warm, dry, other (Patient has a 3 x 4 cm indurated area to the right leg with serosanguineous drainage with white yellow tint draining from the wound. There is no significant surrounding cellulitis. No vesicles. No rash or lesions elsewhere.). Absent: rash Course Vital Signs 03/11/21 14:27 Temperature 99.1 F Pulse Rate 71 Respiratory 19 Rate Blood Pressure 109/79 O2 Sat by Pulse 98 Oximetry Medical Decision Making - Medical Decision Making Patient presents with surgical site from lipoma removal on February 17. Has been on 2 rounds of Keflex. Saw his surgeon yesterday and started having increased drainage today. No fever or chills. Nontoxic appearance. Patient was told to return to the ER for any signs or symptoms worsen. Told to return immediately if any other problems arise. All questions answered. Treatment plan discussed. Patient in agreement Disposition Clinical Impression: Postoperative wound infection Disposition: HOME SELF-CARE Condition: Good Additional Instructions: Apply warm compresses 20 minutes on and off for times daily. Call tomorrow morn ing to set up a recheck with Dr. valiente. Your wound cultures are pending at this point he should be back in 3 days. Follow-up with your regular physician as directed. Return to the ER immediately if any symptoms worsen, new symptoms arise, or any other problems develop. Prescriptions: Sulfamethox-Tmp 800-160Mg [Bactrim DS 800-160 mg] 1 each PO Q12HR 10 Days #20 tab Is patient prescribed a controlled substance at d/c from ED?: No Referrals: Charles Shields MD [Primary Care Provider] - 1-2 days Arlene Fatima DO [Doctor of Osteopathic Medicine] - 1-2 days Time of Disposition: 16:20
[2021-03-11 16:44] VITALS: BP 111/75; PULSE 67; RESP 18
== END 2021-03-11 16:44 | disposition home or self-care (01) ==
LOC: EC 14:02
DX: T81.49XA Infection following a procedure, other surgical site, initial encounter (principal); I10 Essential (primary) hypertension; Z90.49 Acquired absence of other specified parts of digestive tract; Z87.891 Personal history of nicotine dependence; X58.XXXA Exposure to other specified factors, initial encounter
CPT/HCPCS: 87070; 87075; 87205; 99283

== ENCOUNTER 2021-03-15 19:23 | Emergency (ER) | payer BC ==
[2021-03-15 21:31] LABS: Basophils % (A) 1 %; Eosinophils # (A) 0.3 k/uL (0-0.7); Eosinophils % (A) 6 %; HCT 42.5 % (39.0-53.0); HGB 13.5 gm/dL (13.0-17.5); Lymphocytes # (A) 1.7 k/uL (1.0-4.8); Lymphocytes % (A) 31 %; MCH 27.3 pg (25.0-35.0); MCHC 31.9 g/dL (31.0-37.0); MCV 85.7 fL (80.0-100.0); Mean Platelet Volume 7.8; Monocytes # (A) 0.3 k/uL (0-1.0); Monocytes % (A) 5 %; Neutrophils % (A) 56 %; Platelet Count 246 k/uL (150-450); RBC 4.96 m/uL (4.30-5.90); RDW 12.7 % (11.5-15.5); WBC 5.4 k/uL (3.8-10.6)
[2021-03-15 21:41] LABS: Albumin 4.4 g/dL (3.5-5.0); Calcium 9.4 mg/dL (8.4-10.2); Potassium 4.5 mmol/L (3.5-5.1); Total Bilirubin 0.4 mg/dL (0.2-1.3); Total Protein 7.5 g/dL (6.3-8.2)
[2021-03-15 21:47] LABS: Appearance,Urine Clear (Clear); Bilirubin,Urine Negative (Negative); Blood,Urine Trace (Negative); Color,Urine Light Yellow; Glucose,Urine (UA) Negative (Negative); INR 1.1 (<1.2); Ketones,Urine Negative (Negative); Leukocyte Esterase,Urine Negative (Negative); Nitrite,Urine Negative (Negative); PH, Urine 5.5 (5.0-8.0); Partial Thromboplastin Time 26.1 sec (22.0-30.0); Protein,Urine Negative (Negative); Prothrombin Time 11.7 sec (9.0-12.0); Specific Gravity,Urine 1.006 (1.001-1.035); Urobilinogen,Urine <2.0 mg/dL (<2.0)
[2021-03-15] MEDS ORDERED: SODIUM CHLORIDE 0.9% 1,000 ML IV ONE (22:00)
--- NOTE | 2021-03-15 22:06 | ED ---
Arrhythmia/Palpitations HPI - General Chief Complaint: Arrhythmia/Palpitations Stated Complaint: Irregular heartbeat Time Seen by Provider: 03/15/21 21:37 Source: patient Mode of arrival: ambulatory Limitations: no limitations - History of Present Illness Initial Comments: Patient is a 61-year-old man who complains of "fluttering" in his chest going on this afternoon. He states that it had started while he was watching television. The patient is concerned that it is related to Bactrim that he has been taking since Wednesday for suspected incision infection. Patient stated he had a lipoma removed on February [address] Fatima. The patient had been seen here on March 11 and had been given prescription for Bactrim. Prior to that he had 2 rounds of Keflex. The patient reported having yellowish drainage. At that time cultures were sent and I have reviewed these in the computer and they are showing only normal skin fransico. MD Complaint: palpitations -: hour(s) Context: occurred during rest Associated Symptoms: denies other symptoms - Related Data Home Medications Medication Instructions Recorded Confirmed Doxazosin [Cardura] 4 mg PO QAM 03/21/19 02/17/21 amLODIPine [Norvasc] 10 mg PO QAM 03/21/19 02/17/21 lisinopriL 20 mg PO HS 03/21/19 02/17/21 Cholecalciferol [Vitamin D3 (25 5,000 unit PO DAILY 01/17/20 02/17/21 Mcg = 1000 Iu)] Pravastatin Sodium [Pravachol] 20 mg PO HS 01/17/20 02/17/21 HYDROcodone/APAP 10-325MG [[place] 1 tab PO Q6HR PRN 02/13/21 02/17/21 10-325] Previous Rx's Medication Instructions Recorded HYDROcodone/APAP 10-325MG [[place] 1 tab PO Q6HR PRN 3 Days #28 tab 02/17/21 10-325] Sulfamethox-Tmp 800-160Mg [Bactrim 1 each PO Q12HR 10 Days #20 tab 03/11/21 DS 800-160 mg] Allergies Allergy/AdvReac Type Severity Reaction Status Date / Time No Known Allergies Allergy Verified 03/15/21 19:36 Review of Systems ROS Statement: Those systems with pertinent positive or pertinent negative responses have been documented in the HPI. ROS Other: All systems not noted in ROS Statement are negative. Constitutional: Denies: fever, chills, weakness Respiratory: Denies: cough, dyspnea Cardiovascular: Reports: palpitations. Denies: chest pain, orthopnea, edema, syncope Gastrointestinal: Denies: abdominal pain, vomiting, diarrhea Genitourinary: Denies: dysuria, hematuria Musculoskeletal: Denies: back pain Skin: Denies: rash Neurological: Denies: headache Past Medical History Past Medical History: Hypertension History of Any Multi-Drug Resistant Organisms: None Reported Past Surgical History: Appendectomy, Back Surgery Past Psychological History: No Psychological Hx Reported Smoking Status: Former smoker Past Alcohol Use History: None Reported Past Drug Use History: None Reported General Exam Limitations: no limitations General appearance: alert, in no apparent distress Head exam: Present: atraumatic, normocephalic Eye exam: Present: normal appearance Respiratory exam: Present: normal lung sounds bilaterally. Absent: respiratory distress, wheezes, rales, rhonchi, stridor Cardiovascular Exam: Present: regular rate, normal rhythm, normal heart sounds. Absent: systolic murmur, diastolic murmur, rubs, gallop GI/Abdominal exam: Present: soft, other (There is a dressing the right chest wall midaxillary line. The dressing is dry and intact.). Absent: distended, tenderness, guarding, rebound, rigid, mass Extremities exam: Present: normal inspection Neurological exam: Present: alert Skin exam: Present: warm, dry, intact, normal color. Absent: rash Course Vital Signs 03/15/21 19:32 Temperature 98.0 F Pulse Rate 67 Respiratory 20 Rate Blood Pressure 116/81 O2 Sat by Pulse 98 Oximetry Medical Decision Making - Medical Decision Making The patient would not allow the dressing to be taken down to inspect the chest wall. - Lab Data Result diagrams: 03/15/21 21:21 03/15/21 21:21 Lab Results 03/15/21 03/15/21 03/15/21 Range/Units 21:21 21:21 21:21 WBC 5.4 (3.8-10.6) k/uL RBC 4.96 (4.30-5.90) m/uL Hgb 13.5 (13.0-17.5) gm/dL Hct 42.5 (39.0-53.0) % MCV 85.7 (80.0-100.0) fL MCH 27.3 (25.0-35.0) pg MCHC 31.9 (31.0-37.0) g/dL RDW 12.7 (11.5-15.5) % Plt Count 246 (150-450) k/uL MPV 7.8 Neutrophils % 56 % Lymphocytes % 31 % Monocytes % 5 % Eosinophils % 6 % Basophils % 1 % Neutrophils # 3.0 (1.3-7.7) k/uL Lymphocytes # 1.7 (1.0-4.8) k/uL Monocytes # 0.3 (0-1.0) k/uL Eosinophils # 0.3 (0-0.7) k/uL Basophils # 0.0 (0-0.2) k/uL PT 11.7 (9.0-12.0) sec INR 1.1 (<1.2) APTT 26.1 (22.0-30.0) sec Sodium 137 (137-145) mmol/L Potassium 4.5 (3.5-5.1) mmol/L Chloride 100 (98-107) mmol/L Carbon Dioxide 30 (22-30) mmol/L Anion Gap 7 mmol/L BUN 20 (9-20) mg/dL Creatinine 1.44 H (0.66-1.25) mg/dL Est GFR (CKD-EPI)AfAm 61 (>60 ml/min/1.73 sqM) Est GFR (CKD-EPI)NonAf 53 (>60 ml/min/1.73 sqM) Glucose 100 H (74-99) mg/dL Calcium 9.4 (8.4-10.2) mg/dL Total Bilirubin 0.4 (0.2-1.3) mg/dL AST 26 (17-59) U/L ALT 26 (4-49) U/L Alkaline Phosphatase 65 (38-126) U/L Troponin I (0.000-0.034) ng/mL Total Protein 7.5 (6.3-8.2) g/dL Albumin 4.4 (3.5-5.0) g/dL Urine Color Urine Appearance (Clear) Urine pH (5.0-8.0) Ur Specific Counce (1.001-1.035) Urine Protein (Negative) Urine Glucose (UA) (Negative) Urine Ketones (Negative) Urine Blood (Negative) Urine Nitrite (Negative) Urine Bilirubin (Negative) Urine Urobilinogen (<2.0) mg/dL Ur Leukocyte Esterase (Negative) 03/15/21 03/15/21 Range/Units 21:21 21:21 WBC (3.8-10.6) k/uL RBC (4.30-5.90) m/uL Hgb (13.0-17.5) gm/dL Hct (39.0-53.0) % MCV (80.0-100.0) fL MCH (25.0-35.0) pg MCHC (31.0-37.0) g/dL RDW (11.5-15.5) % Plt Count (150-450) k/uL MPV Neutrophils % % Lymphocytes % % Monocytes % % Eosinophils % % Basophils % % Neutrophils # (1.3-7.7) k/uL Lymphocytes # (1.0-4.8) k/uL Monocytes # (0-1.0) k/uL Eosinophils # (0-0.7) k/uL Basophils # (0-0.2) k/uL PT (9.0-12.0) sec INR (<1.2) APTT (22.0-30.0) sec Sodium (137-145) mmol/L Potassium (3.5-5.1) mmol/L Chloride (98-107) mmol/L Carbon Dioxide (22-30) mmol/L Anion Gap mmol/L BUN (9-20) mg/dL Creatinine (0.66-1.25) mg/dL Est GFR (CKD-EPI)AfAm (>60 ml/min/1.73 sqM) Est GFR (CKD-EPI)NonAf (>60 ml/min/1.73 sqM) Glucose (74-99) mg/dL Calcium (8.4-10.2) mg/dL Total Bilirubin (0.2-1.3) mg/dL AST (17-59) U/L ALT (4-49) U/L Alkaline Phosphatase (38-126) U/L Troponin I <0.012 (0.000-0.034) ng/mL Total Protein (6.3-8.2) g/dL Albumin (3.5-5.0) g/dL Urine Color Light Yellow Urine Appearance Clear (Clear) Urine pH 5.5 (5.0-8.0) Ur Specific Counce 1.006 (1.001-1.035) Urine Protein Negative (Negative) Urine Glucose (UA) Negative (Negative) Urine Ketones Negative (Negative) Urine Blood Trace H (Negative) Urine Nitrite Negative (Negative) Urine Bilirubin Negative (Negative) Urine Urobilinogen <2.0 (<2.0) mg/dL Ur Leukocyte Esterase Negative (Negative) - EKG Data -: EKG Interpreted by Me EKG shows normal: sinus rhythm, intervals (Normal), QRS complexes (Left anterior fascicular block) Rate: normal (64 bpm) Interpretation: nonspecific ST-T wave changes Disposition Clinical Impression: Palpitations, Acute kidney injury Disposition: HOME SELF-CARE Condition: Good Instructions (If sedation given, give patient instructions): Heart Palpitations (ED) Additional Instructions: As we discussed, follow with Dr. Mei staff he did have your creatinine rechecked in 2 days. Return here if there is any problem with this plan Is patient prescribed a controlled substance at d/c from ED?: No Referrals: Chalres Shields MD [Primary Care Provider] - 1-2 days
[2021-03-15 23:58] VITALS: BP 111/79; PULSE 53; RESP 16; TEMP 98.1
== END 2021-03-15 23:57 | disposition home or self-care (01) ==
LOC: EC 19:23
DX: R00.2 Palpitations (principal); N17.9 Acute kidney failure, unspecified; I10 Essential (primary) hypertension; Z90.49 Acquired absence of other specified parts of digestive tract; Z87.891 Personal history of nicotine dependence
CPT/HCPCS: 36415; 80053; 81001; 84484; 85025; 85610; 85730; 93005; 96360; 99285

== ENCOUNTER → 2021-05-16 | Outpatient (CLI) | payer BC ==
[2021-05-16 14:49] LABS: Basophils # (A) 0.02 X 10*3/uL (0.00-0.10); Basophils % (A) 0.5 %; Eosinophils # (A) 0.05 X 10*3/uL (0.04-0.35); Eosinophils % (A) 1.2 %; HCT 40.6 % (39.6-50.0); HGB 12.5 g/dL (13.0-17.0); Immature Grans, Automated 0.2 %; Lymphocytes # (A) 1.44 X 10*3/uL (0.90-5.00); Lymphocytes % (A) 35.7 %; MCH 26.3 pg (27.0-32.0); MCHC 30.8 g/dL (32.0-37.0); MCV 85.5 fL (80.0-97.0); Mean Platelet Volume 10.6 fL (9.5-12.2); Monocytes # (A) 0.25 X 10*3/uL (0.20-1.00); Monocytes % (A) 6.2 %; NRBC Per 100 WBC 0 /100 WBCS (0.0-0.0); Neutrophils # (A) 2.26 X 10*3/uL (1.80-7.70); Neutrophils % (A) 56.2 %; Platelet Count 244 X 10*3/uL (140-440); RBC 4.75 X 10*6/uL (4.40-5.60); RDW 13.7 % (11.5-14.5); WBC 4.03 X 10*3/uL (4.50-10.00)
[2021-05-16 15:35] LABS: ALT 18 U/L (10-49); AST 14 U/L (14-35); African American GFR (CKD) 98.6 (60.0-200.0); Albumin 4.4 g/dL (3.8-4.9); Albumin/Globulin Ratio 1.88 (1.60-3.17); Alkaline Phosphatase 57 U/L (41-126); BUN/Creat Ratio 16.39 Ratio (12.00-20.00); Blood Urea Nitrogen 15.9 mg/dL (9.0-27.0); Calcium 9.4 mg/dL (8.7-10.3); Carbon Dioxide 27.1 mmol/L (20.0-27.5); Chloride 104 mmol/L (96-109); Creatine Kinase 264 U/L (35-257); Globulin 2.3 g/dL (1.6-3.3); Glucose 90 mg/dL (70-110); Magnesium 2.1 mg/dL (1.5-2.4); Non-African American GFR(CKD) 85.1 (60.0-200.0); Phosphorus 3.1 mg/dL (2.4-5.1); Potassium 4.9 mmol/L (3.5-5.5); Sodium 141 mmol/L (135-145); Total Protein 6.7 g/dL (6.2-8.2); Uric Acid 7.1 mg/dL (3.7-8.7)
[2021-05-16 15:40] LABS: Erythrocyte Sedimentation Rate 6 mm/Hr (0-20)
[2021-05-16 15:43] LABS: C Reactive Protein <0.30 mg/dL (0.00-0.80); Chol/HDL Ratio 3.03 Ratio; LDL Cholesterol,Calculated 72.4 mg/dL (0.0-131.0)
[2021-05-16 19:29] LABS: Microalbumin Creatinine Ratio <30 mg/g Creat (0-30)
[2021-05-16 23:55] LABS: Appearance,Urine Clear (Clear); Bilirubin,Urine Negative (Negative); Blood,Urine Negative (Negative); Color,Urine Yellow (Yellow); Ketones,Urine Negative (Negative); Leukocyte Esterase,Urine Negative (Negative); Nitrite,Urine Negative (Negative); PH, Urine 6.5 (5.0-8.0); Protein,Urine Negative (Negative); Specific Gravity,Urine 1.019 (1.001-1.030)
== END | disposition home or self-care (01) ==
LOC: LABWHC1 07:25
PROVIDERS: ATTEND Internal Medicine
DX: Z00.00 Encounter for general adult medical examination without abnormal findings (principal); I12.9 Hypertensive chronic kidney disease with stage 1 through stage 4 chronic kidney disease, or unspecified chronic kidney disease; E78.5 Hyperlipidemia, unspecified; E11.22 Type 2 diabetes mellitus with diabetic chronic kidney disease; E11.65 Type 2 diabetes mellitus with hyperglycemia; E66.9 Obesity, unspecified; E55.9 Vitamin D deficiency, unspecified; D64.9 Anemia, unspecified; M10.9 Gout, unspecified; J44.9 Chronic obstructive pulmonary disease, unspecified; N40.0 Benign prostatic hyperplasia without lower urinary tract symptoms; N18.30 Chronic kidney disease, stage 3 unspecified
CPT/HCPCS: 36415; 80053; 80061; 81003; 82043; 82306; 82550; 82570; 83036; 83735; 84100; 84153; 84443; 84550; 85025; 85652; 86140; 86900; 86901

== ENCOUNTER → 2021-08-21 | Outpatient (CLI) | payer BC | END | disposition home or self-care (01) | LOC: LABWHC1 06:59 | PROVIDERS: ATTEND Radiology Radiation Oncology | DX: C61 Malignant neoplasm of prostate (principal); Z92.3 Personal history of irradiation; Z79.818 Long term (current) use of other agents affecting estrogen receptors and estrogen levels; Z87.891 Personal history of nicotine dependence; R35.1 Nocturia | CPT/HCPCS: 36415; 84153 ==

== ENCOUNTER 2021-09-16 16:23 | Emergency (ER) | payer BC ==
[2021-09-16 16:38] VITALS: BP 128/84; PULSE 64; RESP 16; TEMP 98.5
[2021-09-16] MEDS ORDERED: MORPHINE SULFATE 4 MG/ML SYRINGE IM STA (17:43)
--- NOTE | 2021-09-16 18:49 | US ---
EXAMINATION TYPE: US scrotum with doppler. Grayscale and color Doppler Duplex imaging performed of juan carlos sullivan scrotum. DATE OF EXAM: 09/16/2021 COMPARISON: NONE CLINICAL HISTORY: left inguinal hernia hx, left groin pain. Left pelvic pain EXAM MEASUREMENTS: TESTICLES: Right Testicle: 4.8 x 2.5 x 2.9 cm Left Testicle: 4.7 x 2.5 x 3.1 cm EPIDIDYMIS HEAD: Right Epididymis: 1.3 cm Left Epididymis: 1.2 cm Doppler performed to assess for testicular vascularity; good bilateral color flow and waveforms are s een. There is no evidence of testicular torsion. Presence of hydroceles: right - 4.7cm, left 5.3cm Presence of varicoceles: no Scanned left pelvis at patient's area of concern: appears wnl at this time IMPRESSION: No testicular torsion or mass. There is moderate bilateral hydroceles.
--- NOTE | 2021-09-16 19:10 | ED ---
Abdominal Pain HPI - General Chief Complaint: Abdominal Pain Stated Complaint: ABD Pain Time Seen by Provider: 09/16/21 17:22 Source: patient Mode of arrival: ambulatory Limitations: no limitations - History of Present Illness Initial Comments: Patient is a 61-year-old male with a past medical history significant for prostate cancer who presents to the emergency department for evaluation of left groin pain. Patient states the pain started 2 weeks ago with radiation to the left testicle. Patient states he has not had pain when lying down however when he is standing up moving around the pain comes back. He denies fever, chills, abdominal pain, nausea, vomiting, burning with urination, penile discharge. Denies concern for sexual transmitted infections. He reports history of left inguinal hernia which he was diagnosed with 10 years ago incidentally. Patient states he has not had issues with the hernia. - Related Data Home Medications Medication Instructions Recorded Confirmed Doxazosin [Cardura] 4 mg PO DAILY 03/21/19 03/15/21 amLODIPine [Norvasc] 10 mg PO DAILY 03/21/19 03/15/21 Pravastatin Sodium [Pravachol] 20 mg PO HS 01/17/20 03/15/21 Cholecalciferol (Vitamin D3) 125 mcg PO DAILY 03/15/21 03/15/21 [Vitamin D3 (125 MCG = 5,000 IU)] HYDROcodone/APAP 10-325MG [[place] 1 tab PO QID PRN 03/15/21 03/15/21 10-325] Widen-3 Fatty Acids [Widen-3] 1,000 mg PO DAILY 03/15/21 03/15/21 Sulfamethox-Tmp 800-160Mg [Bactrim 1 tab PO BID 03/15/21 03/15/21 DS 800-160 mg] allopurinoL [Zyloprim] 100 mg PO DAILY 03/15/21 03/15/21 lisinopriL [Zestril] 20 mg PO DAILY 03/15/21 03/15/21 Previous Rx's Medication Instructions Recorded Ketorolac [Toradol] 10 mg PO Q8HR #21 tab 09/16/21 Allergies Allergy/AdvReac Type Severity Reaction Status Date / Time No Known Allergies Allergy Verified 09/16/21 16:35 Review of Systems ROS Statement: Those systems with pertinent positive or pertinent negative responses have been documented in the HPI. ROS Other: All systems not noted in ROS Statement are negative. Past Medical History Past Medical History: Hyperlipidemia, Hypertension Additional Past Medical History / Comment(s): uric acid History of Any Multi-Drug Resistant Organisms: None Reported Past Surgical History: Appendectomy, Back Surgery Past Psychological History: No Psychological Hx Reported Smoking Status: Former smoker Past Alcohol Use History: Occasional Past Drug Use History: None Reported General Exam Limitations: no limitations General appearance: alert, in no apparent distress Head exam: Present: atraumatic, normocephalic, normal inspection Respiratory exam: Present: normal lung sounds bilaterally. Absent: respiratory distress, wheezes, rales, rhonchi, stridor Cardiovascular Exam: Present: regular rate, normal rhythm, normal heart sounds. Absent: systolic murmur, diastolic murmur, rubs, gallop, clicks GI/Abdominal exam: Present: soft, tenderness (left inguinal ), normal bowel sounds. Absent: distended, guarding, rebound, rigid, hernia exam: Present: testicular tenderness (left ), circumcision. Absent: urethral discharge, scrotal swelling Back exam: Present: normal inspection Neurological exam: Present: alert, oriented X3, CN II-XII intact Psychiatric exam: Present: normal affect, normal mood Skin exam: Present: warm, dry, intact, normal color. Absent: rash Course Vital Signs 09/16/21 16:36 Temperature 98.5 F Pulse Rate 64 Respiratory 16 Rate Blood Pressure 128/84 O2 Sat by Pulse 96 Oximetry Medical Decision Making - Medical Decision Making This is a 61-year-old male who presents with left groin pain with radiation to the left testicle. Thorough history and examination were performed. The abdomen is soft and nontender. There is tenderness with palpation of the left inguinal region however a hernia is not palpable. Testicular ultrasound was obtained which showed bilateral moderate hydroceles. I did have Dr. Gomez reevaluate this patient with me. Results were discussed with patient. Hydrocele education provided in detail. Patient follows with Dr. Chris who he is instructed to schedule an appointment with in one to 2 weeks if symptoms do not improve. Return parameters discussed. Patient verbalizes understanding and is agreeable to this plan. Dr. Gomez is my attending. Disposition Clinical Impression: Hydrocele, bilateral Disposition: HOME SELF-CARE Condition: Good Additional Instructions: Take medication as directed. Use of compressive underwear may help symptoms. Follow-up with urologist if symptoms do not improve in 1-2 weeks. Return to the emergency department if you experience new, concerning, or worsening symptoms. Prescriptions: Ketorolac [Toradol] 10 mg PO Q8HR #21 tab Is patient prescribed a controlled substance at d/c from ED?: No Referrals: Charles Shields MD [Primary Care Provider] - 1-2 days Time of Disposition: 19:10
== END 2021-09-16 19:44 | disposition home or self-care (01) ==
LOC: EC 16:23
DX: N43.3 Hydrocele, unspecified (principal); I10 Essential (primary) hypertension; E78.5 Hyperlipidemia, unspecified; Z87.891 Personal history of nicotine dependence; Z79.899 Other long term (current) drug therapy
CPT/HCPCS: 93975; 76870; 99284; 96372; J2270

== ENCOUNTER → 2021-10-17 | Outpatient (CLI) | payer BC ==
[2021-10-17 11:51] LABS: African American GFR (CKD) >90 (>60 ml/min/1.73 sqM); Blood Urea Nitrogen 13 mg/dL (9-20); Non-African American GFR(CKD) >90 (>60 ml/min/1.73 sqM)
--- NOTE | 2021-10-17 13:11 | CT ---
EXAMINATION TYPE: CT abdomen pelvis w con DATE OF EXAM: 10/17/2021 COMPARISON: 12/20/2020 HISTORY: Lower abdominal pain across entire pelvic area CT DLP: 1372.3 mGycm Automated exposure control for dose reduction was used. TECHNIQUE: Helical acquisition of images was performed from the lung bases through the pelvis. CONTRAST: Performed with Oral Contrast and with IV Contrast, patient injected with 100 mL of Isovue 300. FINDINGS: Visualized lung bases are clear Gallbladder is normal without wall thickening, gallstones, pericholecystic fluid or distention. There is no biliary ductal dilatation. There is no focal mass or organomegaly involving the liver, pancreas, spleen or adrenal glands. There is no retroperitoneal adenopathy or hemorrhage in the caliber of the abdominal aorta is normal. The kidneys excrete contrast promptly and symmetrically is no solid renal mass or hydronephrosis. Bowel loops are normal in caliber is no evidence of dilatation or obstruction. No inflammatory change s are identified in the bowel wall or mesentery. There is no free intraperitoneal air or fluid There is no pelvic mass, free fluid, abscess or adenopathy. There is a moderate hydrocele the left scrotum and mild ascites right visualized osseous structures t here is aneurysmal dilatation of the common iliac arteries bilaterally proximally 22-25 mm. Impression: No significant abnormality seen involving the visceral abdominal organs, peritoneal cavity or colon. 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
== END | disposition home or self-care (01) ==
LOC: RADCTMAIN 11:04
PROVIDERS: ATTEND Radiology Radiation Oncology
DX: I72.3 Aneurysm of iliac artery (principal); R10.30 Lower abdominal pain, unspecified
CPT/HCPCS: 82565; 84520; 74177; 36415; Q9967 ×2

== ENCOUNTER → 2021-11-28 | Outpatient (CLI) | payer BC ==
[2021-11-28 18:06] LABS: Basophils # (A) 0.02 X 10*3/uL (0.00-0.10); Basophils % (A) 0.4 %; Eosinophils # (A) 0.15 X 10*3/uL (0.04-0.35); Eosinophils % (A) 2.8 %; HCT 42.7 % (39.6-50.0); HGB 13.4 g/dL (13.0-17.0); Immature Grans, Automated 0.2 %; MCH 27.7 pg (27.0-32.0); MCHC 31.4 g/dL (32.0-37.0); MCV 88.2 fL (80.0-97.0); Mean Platelet Volume 9.8 fL (9.5-12.2); Monocytes # (A) 0.38 X 10*3/uL (0.20-1.00); Monocytes % (A) 7.2 %; NRBC Per 100 WBC 0 /100 WBCS (0.0-0.0); Neutrophils # (A) 2.71 X 10*3/uL (1.80-7.70); Neutrophils % (A) 51.4 %; Platelet Count 244 X 10*3/uL (140-440); RBC 4.84 X 10*6/uL (4.40-5.60); RDW 12.9 % (11.5-14.5); WBC 5.27 X 10*3/uL (4.50-10.00)
== END | disposition home or self-care (01) ==
LOC: LABPAT 12:58
PROVIDERS: ATTEND Anesthesiology
DX: Z01.812 Encounter for preprocedural laboratory examination (principal)
CPT/HCPCS: 85025

== ENCOUNTER 2021-12-01 08:17 | Day surgery (SDC) | payer BC ==
[2021-11-27 12:56] VITALS: BMI 32.5
[~2021-12-01 08:17] MED LIST changes: +DEXAMETHASONE SOD PHOSPHATE 4 MG/ML 1 ML VIAL IV ONE; +HEPARIN SODIUM,PORCINE/PF 5,000 UNIT/0.5 ML SYRINGE SQ PRN; +HYDROmorphone 0.5 MG/0.5 ML SYRINGE IVP PRN; +LACTATED RINGERS 1,000 ML IV SCH; +LIDOCAINE 1% (10MG/ML) FOR IV START INTRADERMA PRN; +ONDANSETRON 4 MG/2 ML VIAL IVP ONE; -ceFAZolin 1,000 MG in SODIUM CHLORIDE 0.9% IRRIGATIO 1,000 ML IRRIGATION PRN; -ceFAZolin 3 GM in SODIUM CHLORIDE 0.9% 100 ML IVPB PRN
[2021-12-01] MEDS ORDERED: LACTATED RINGERS 1,000 ML IV ONE ×2 (08:43→12:04)
--- NOTE | 2021-12-01 08:56 | P.GSHP ---
History of Present Illness H&P Date: 12/01/21 CHIEF COMPLAINT: Inguinal hernia, left. HISTORY OF PRESENT ILLNESS: The patient is a 61-year-old male who presents with a history of swelling and pain along the left groin. . He's noted increased swelling including pain of the area. Now he presents for repair of his inguinal hernia. PAST MEDICAL HISTORY: Please see list. PAST SURGICAL HISTORY: Please see list. MEDICATIONS: Please see list. ALLERGIES: Please see list. SOCIAL HISTORY: No illicit drug use FAMILY HISTORY: No reports of Crohn disease or ulcerative colitis. REVIEW OF ORGAN SYSTEMS: CONSTITUTIONAL: No reports of fevers or chills. No reports of weight loss despite prior attempts. GI: Denies any blood in stools or constipation. PHYSICAL EXAM: VITAL SIGNS: Stable GENERAL: Well-developed pleasant male in no acute distress. HEENT: No scleral icterus. Extraocular movements grossly intact. Moist buccal mucosa. NECK: Supple without lymphadenopathy. CHEST: Unlabored respirations. Equal bilateral excursions. CARDIOVASCULAR: Regular rate and rhythm. Distal 2+ pulses. ABDOMEN: Soft, nondistended. No peritoneal signs. Palpable defect of the left groin. MUSCULOSKELETAL: No clubbing, cyanosis, or edema. ASSESSMENT: 1. Inguinal hernia, left PLAN: 1. Recommend proceeding with a robotic inguinal repair with mesh with possible bilateral approach. 2. Benefits and risks of surgical intervention was discussed including possibility of open technique. 3. DVT prophylaxis. 4. Antibiotic prophylaxis. Past Medical History Past Medical History: Cancer, Hyperlipidemia, Hypertension, Osteoarthritis (OA) Additional Past Medical History / Comment(s): AAA., gout., DDD., prostate cancer with radiation tx. , pre-diabetic., BPH. , left inguinal hernia., states "lump" by his ankle that hes had for years. History of Any Multi-Drug Resistant Organisms: None Reported Past Surgical History: Appendectomy, Back Surgery Additional Past Surgical History / Comment(s): hand surgery Past Anesthesia/Blood Transfusion Reactions: No Reported Reaction Past Psychological History: No Psychological Hx Reported Smoking Status: Former smoker Past Alcohol Use History: Daily Additional Past Alcohol Use History / Comment(s): quit smoking 2 years ago ( 2019), smoked 1/4 ppd, started smoking age 19. drinks daily -beer or yordan- usually a couple a day Past Drug Use History: None Reported Medications and Allergies Home Medications Medication Instructions Recorded Confirmed Type Doxazosin [Cardura] 4 mg PO DAILY 03/21/19 11/27/21 History amLODIPine [Norvasc] 10 mg PO DAILY 03/21/19 11/27/21 History Pravastatin Sodium [Pravachol] 20 mg PO HS 01/17/20 11/27/21 History Cholecalciferol (Vitamin D3) 125 mcg PO DAILY 03/15/21 11/27/21 History [Vitamin D3 (125 MCG = 5,000 IU)] Ong-3 Fatty Acids [Ong-3] 1,000 mg PO DAILY 03/15/21 11/27/21 History lisinopriL [Zestril] 20 mg PO HS 03/15/21 11/27/21 History Acetaminophen Tab [Tylenol] 325 mg PO DIRECTED PRN 11/27/21 11/27/21 History Multivit-Min/Folic/Vit K/Lycop 1 each PO DAILY 11/27/21 11/27/21 History [Men's Multivitamin Tablet] Allergies Allergy/AdvReac Type Severity Reaction Status Date / Time No Known Allergies Allergy Verified 11/27/21 12:24 Surgical - Exam Vital Signs Temp Pulse Resp BP Pulse Ox 98 F 78 18 155/95 98 12/01/21 08:40 12/01/21 08:40 12/01/21 08:40 12/01/21 08:40 12/01/21 08:40
[2021-12-01] MEDS ORDERED: MELOXICAM 7.5 MG TAB PO PRN (09:01)
[2021-12-01] MEDS ORDERED: ACETAMINOPHEN TAB 500 MG TAB PO STA (09:01)
[2021-12-01] MEDS ORDERED: GABAPENTIN 300 MG CAP PO STA (09:01)
[2021-12-01] MEDS ORDERED: TAMSULOSIN 0.4 MG CAP.ER.24H PO STA (09:01)
[2021-12-01 09:11] LABS: Glucose,Whole Blood 101 mg/dL (70-110)
[2021-12-01] MEDS ORDERED: MIDAZOLAM 2 MG/2 ML VIAL IVP ONE (09:29)
[2021-12-01] MEDS ORDERED: fentaNYL (PF) 50 MCG/ML 2 ML AMP IVP ONE (09:30)
[2021-12-01] MEDS ORDERED: NEOSTIGMINE 1 MG/ML 10 ML VIAL ONE (10:12)
[2021-12-01] MEDS ORDERED: LIDOCAINE 2% INJ 20 MG/ML (2 ML VIAL) ONE (10:12)
[2021-12-01] MEDS ORDERED: GLYCOPYRROLATE 0.2 MG/ML 2 ML VIAL ONE (10:12)
[2021-12-01] MEDS ORDERED: ROCURONIUM 10 MG/ML (5 ML VIAL) IV ONE (10:12)
[2021-12-01] MEDS ORDERED: fentaNYL (PF) 50 MCG/ML 2 ML AMP ONE (10:12)
[2021-12-01] MEDS ORDERED: ePHEDrine 50 MG/ML 1 ML VIAL ONE (10:12)
[2021-12-01] MEDS ORDERED: PROPOFOL 10 MG/ML 20 ML VIAL IV ONE (10:12)
[2021-12-01] MEDS ORDERED: SUCCINYLCHOLINE CHLORIDE 200 MG/10 ML VIAL IV ONE (10:12)
[2021-12-01] MEDS ORDERED: PHENYLEPHRINE-0.9% NACL SYG 1,000 MCG/10 ML SYRINGE ONE (10:12)
[2021-12-01] MEDS ORDERED: MIDAZOLAM 2 MG/2 ML VIAL ONE (10:12)
[2021-12-01] MEDS ORDERED: BUPIVACAINE (PF) 0.25% 30 ML VIAL SQ ONE (10:23)
[2021-12-01 12:20] VITALS: TEMP 97.3
--- NOTE | 2021-12-01 12:39 | P.OP ---
Date of Procedure: 12/01/21 Description of Procedure: SURGEON: MELISSA CHEUNG MD PREOPERATIVE DIAGNOSES: 1. Initial left inguinal hernia. 2. Right inguinal pain 3. History of prostate cancer status post radiation 4. Hypertensive heart disease 5. Abdominal aortic aneurysm 6. Hyperlipidemia 7. Gout 8. History of alcohol use POSTOPERATIVE DIAGNOSES: 1. Initial left inguinal hernia, indirect. 2. Right inguinal pain 3. History of prostate cancer status post radiation 4. Hypertensive heart disease 5. Abdominal aortic aneurysm 6. Hyperlipidemia 7. Gout 8. History of alcohol use 9. 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 Right inguinal hernia, indirect 11. Prior open appendectomy with peritoneal adhesions 12. Right iliac artery aneurysm OPERATION: 1. Robotic-assisted da Jose Xi laparoscopic lysis of adhesions over 30 minutes 2. Robotic-assisted da Jose Xi laparoscopic repair of initial right direct inguinal hernia with mesh, 11.[address] 3. Robotic-assisted da Jose Xi laparoscopic repair of initial incarcerated left indirect inguinal hernia with mesh, 11.[address] 4. Excision of right inguinal hernia, subfascial lipoma, 5 cm x 3 cm 5. Excision of left inguinal subfascial lipoma, 2 cm excised ANESTHESIA: General with local anesthetic, regional block ESTIMATED BLOOD LOSS: 10 mL. SPECIMENS: 1. Incarcerated left inguinal hernia 2. Right inguinal hernia sac and lipoma COMPLICATIONS: None. FINDINGS: 1. Dense pelvic adhesions involving the left and right groin adding complexity to the case requiring over 30 minutes extensive lysis of adhesions 2. Bilateral weak inguinal floor reinforced using mesh. 3. Lipoma of the right groin, subfascial 5 x 3 cm excised 4. Incarcerated left inguinal hernia 2 cm lipoma excised 5. Right iliac artery aneurysm INDICATIONS: The patient is a 61-year-old gentleman who presents with history of right inguinal pain and left inguinal hernia. Now presents for definitive surgical intervention. Laparoscopic versus open and robotic approaches were discussed. Benefits and risks including bleeding, infection, in jury to the vas deferens as well as sterility and chronic groin pain were reviewed. Placement of mesh was also described. Informed consent was obtained. DESCRIPTION: In the preoperative area, the patient was marked with indelible marker along the inguinal hernia. The patient was brought to the operating room and initially laid in supine position. The abdomen had been prepped and draped in standard sterile fashion. Ioban draping was also placed. Prior to incision, a timeout protocol was confirmed with surgical team regarding patient's name including procedures to be performed and location along the right groin. Initial positioning for the robotic assisted ports were selected whereby 20 cm superior to the target anatomy, 0 degree 5 mm laparoscopic trocar entry was performed at the left upper quadrant. The abdomen was insufflated to 15 mmHg which he had tolerated well. Diagnostic laparoscopy demonstrated no injury to bowel, viscera or mesentery. Moderate intra-abdominal adhesions of along the epigastrium and pelvis was identified and complexity to this case. The omentum was adherent to the left pelvis involving the sigmoid colon. Similarly, dense adhesions or from of the cecum to the abdominal wall and involving the omentum. Next, along the epigastrium, 8 mm robot trocar was placed. An 8-mm robotic trocar was placed under direct visualization at the right upper quadrant. An 8 mm port was placed at the left upper quadrant. All trocars were positioned between 10-cm apart from each other. An additional laparoscopic 12 mm trochar was placed along the right lateral abdominal wall. The [employer] XI robot was primed, draped, prepared for docking along upper abdomen of the patient. The patient was positioned 14 steep Trendelenburg position I then went to the [employer] Xi console. The assistant general manager was at bedside for exchange of the robot arms and equipment. Extensive lysis of adhesions over 30 minutes was performed. Dissection of the omentum from the pelvis including the sigmoid colon and cecum was performed. After dissection, defect of the left groin was identified including the right side. Subfascial 5 x 3 cm inguinal lipoma was excised along the right indirect inguinal hernia. The left indirect inguinal hernia sac was evaginated whereby the peritoneum was scored using Endo scissors with cautery. Once completely reduced into the abdominal cavity, the peritoneal sac of the hernia was stripped. The sac was resected and then passed off for further pathological analysis. The size of the hernia defect was 2 cm with intraoperative films obtained. As an onlay, an 11.[address] mesh by [employer] was initially cut in half and entered into the abdominal cavity via the 12 mm trocar. The mesh was tacked to the pelvis using 2-0 VLOC nonabsorbable sutures. A right iliac artery aneurysm was identified. The right inguinal hernia lipoma was evaginated whereby the peritoneum was scored using Endo scissors with cautery. Once completely reduced into the abdominal cavity, the lipoma and sac was resected and then passed off for further pathological analysis. The size of the hernia defect was 2 cm with a weak posterior floor. As an onlay, an 11.[address] mesh by [employer] was initially cut in half and entered into the abdominal cavity via the 12 mm trocar. The mesh was tacked to the pelvis using nonabsorbable 2-0 VLOC 9-inch length sutures. The robot was undocked from the patient's bedside. I then rescrubbed into the case. Insufflation was released from the abdominal cavity and all instruments were re moved from the abdominal cavity. The rest of incisions were reapproximated using 4-0 Monocryl in a running subcuticular fashion. Incisions were cleansed using dilute hydrogen peroxide. Liquid glue was applied to the skin. At the end of the procedure, the needle, sponge and instrument counts had been verified correct by the director medical surgical. The patient had tolerated the procedure well and was taken to the postanesthesia care unit in stable condition. Plan - Discharge Summary New Discharge Prescriptions: New Acetaminophen Tab [Tylenol Tab] 1,000 mg PO Q6HR PRN #30 tablet PRN Reason: Pain Simethicone [Gas-X] 125 mg PO AC-TID PRN #20 capsule PRN Reason: Pain Ibuprofen [Motrin] 600 mg PO Q8HR PRN #30 tab PRN Reason: Pain Continue amLODIPine [Norvasc] 10 mg PO DAILY Doxazosin [Cardura] 4 mg PO DAILY Pravastatin Sodium [Pravachol] 20 mg PO HS Acetaminophen Tab [Tylenol] 325 mg PO DIRECTED PRN PRN Reason: Pain lisinopriL [Zestril] 20 mg PO HS [place]-3 Fatty Acids [[place]-3] 1,000 mg PO DAILY Cholecalciferol (Vitamin D3) [Vitamin D3 (125 MCG = 5,000 IU)] 125 mcg PO DAILY Multivit-Min/Folic/Vit K/Lycop [Men's Multivitamin Tablet] 1 each PO DAILY Discharge Medication List Doxazosin [Cardura] 4 mg PO DAILY 03/21/19 [History] amLODIPine [Norvasc] 10 mg PO DAILY 03/21/19 [History] Pravastatin Sodium [Pravachol] 20 mg PO HS 01/17/20 [History] Cholecalciferol (Vitamin D3) [Vitamin D3 (125 MCG = 5,000 IU)] 125 mcg PO DAILY 03/15/21 [History] [place]-3 Fatty Acids [[place]-3] 1,000 mg PO DAILY 03/15/21 [History] lisinopriL [Zestril] 20 mg PO HS 03/15/21 [History] Acetaminophen Tab [Tylenol] 325 mg PO DIRECTED PRN 11/27/21 [History] Multivit-Min/Folic/Vit K/Lycop [Men's Multivitamin Tablet] 1 each PO DAILY 11/27/21 [History] Acetaminophen Tab [Tylenol Tab] 1,000 mg PO Q6HR PRN #30 tablet 12/01/21 [Rx] Ibuprofen [Motrin] 600 mg PO Q8HR PRN #30 tab 12/01/21 [Rx] Simethicone [Gas-X] 125 mg PO AC-TID PRN #20 capsule 12/01/21 [Rx] Follow up Appointment(s)/Referral(s): Melissa Cheung MD [STAFF PHYSICIAN] - 12/09/21 Patient Instructions/Handouts: Laparoscopic Herniorrhaphy (IP), Inguinal Hernia Repair (DC) Activity/Diet/Wound Care/Special Instructions: No lifting for 4 pounds in 4 weeks, Jan 01 Using antibacterial soap. May shower. No bathtub soaks for 2 weeks, Dec 15 Wear abdominal binder daily for comfort except for showering. Use ice along incisions for today to prevent swelling. Discharge Disposition: HOME SELF-CARE
[2021-12-01] MEDS ORDERED: HYDROmorphone 0.5 MG/0.5 ML SYRINGE IVP ONE (13:06)
[2021-12-01 13:38] VITALS: RESP 16
[2021-12-01] MEDS ORDERED: IBUPROFEN 200 MG TAB PO ONE (13:39)
--- NOTE | 2021-12-01 13:51 | P.ANPRN ---
Procedure Note - Anesthesia - Nerve Block Performed Bilateral Erector Spinae Time Out Performed: Yes (:) Date of Procedure: 12/01/21 Procedure Start Time: Procedure Stop Time: : Location of Patient: PreOp Indication: Acute Post-Operative Pain, Requested by Surgeon (Dr Kelly) Sedation Type: Sedate with meaningful contact maintained Preparation: Sterile Prep Position: Prone Catheter: None Needle Types: Pajunk Needle Gauge: 21 Ultrasound used to visualize needle placement: Yes Ultrasound used to observe medication spread: Yes Injectate: 0.5% Ropivacaine (see comment for volume) (15cc +10cc PF Normal saline each side) Blood Aspirated: No Pain Paresthesia on Injection Noted: No Resistance on Injection: Normal Image Stored and Saved: Yes Events: Uneventful and Well Tolerated
[2021-12-01 13:55] VITALS: BP 133/84; PULSE 70
== END 2021-12-01 14:35 | disposition home or self-care (01) ==
LOC: OR 08:17
PROVIDERS: ATTEND Surgery Plastic and Reconstructive Surgery
DX: K40.90 Unilateral inguinal hernia, without obstruction or gangrene, not specified as recurrent (principal); G89.18 Other acute postprocedural pain; K40.30 Unilateral inguinal hernia, with obstruction, without gangrene, not specified as recurrent; D17.79 Benign lipomatous neoplasm of other sites; K66.0 Peritoneal adhesions (postprocedural) (postinfection); I72.3 Aneurysm of iliac artery; I71.40 Abdominal aortic aneurysm, without rupture, unspecified; I11.0 Hypertensive heart disease with heart failure; I50.9 Heart failure, unspecified; E78.5 Hyperlipidemia, unspecified; R73.03 Prediabetes; N40.0 Benign prostatic hyperplasia without lower urinary tract symptoms; M19.90 Unspecified osteoarthritis, unspecified site; M10.9 Gout, unspecified; F10.90 Alcohol use, unspecified, uncomplicated; Z85.46 Personal history of malignant neoplasm of prostate; Z92.3 Personal history of irradiation; Z90.89 Acquired absence of other organs; Z98.890 Other specified postprocedural states; Z87.891 Personal history of nicotine dependence; Z79.899 Other long term (current) drug therapy
CPT/HCPCS: 49650; 11406; 11402; 64999; 88302; C1781; J2250; J0330; J1100; J2710; J0690; J2405; J3010; J2370; J2704; J1170; J1644; J2001

== ENCOUNTER → 2022-01-09 | Outpatient (CLI) | payer BC ==
[2022-01-09 10:50] LABS: ALT 20 U/L (10-49); AST 20 U/L (14-35); Chol/HDL Ratio 2.66 Ratio; LDL Cholesterol,Calculated 77.6 mg/dL (0.0-131.0); VLDL Calculation 12.18 mg/dL (5.00-40.00)
== END | disposition home or self-care (01) ==
LOC: LABWHC1 07:07
PROVIDERS: ATTEND Internal Medicine Interventional Cardiology
DX: E78.2 Mixed hyperlipidemia (principal)
CPT/HCPCS: 36415; 80061; 84450; 84460

== ENCOUNTER → 2022-02-13 | Outpatient (CLI) | payer BC | END | disposition home or self-care (01) | LOC: LABWHC1 07:32 | PROVIDERS: ATTEND Radiology Radiation Oncology | DX: C61 Malignant neoplasm of prostate (principal); R35.1 Nocturia; Z79.818 Long term (current) use of other agents affecting estrogen receptors and estrogen levels; Z92.3 Personal history of irradiation; Z87.891 Personal history of nicotine dependence | CPT/HCPCS: 36415; 84153 ==

== ENCOUNTER → 2022-03-13 | Outpatient (CLI) | payer BC ==
--- NOTE | 2022-03-13 15:32 | XR ---
EXAMINATION TYPE: XR chest 2V DATE OF EXAM: 03/13/2022 3:25 PM COMPARISON: Chest radiographs from 02/03/2021 TECHNIQUE: XR chest 2V Frontal and lateral views of the chest. CLINICAL INDICATION:Male, 62 years old with history of R06.02 Shortness of Breath; FINDINGS: Lungs/Pleura: There is no evidence of pleural effusion, focal consolidation, or pneumothorax. Pulmonary vascularity: Unremarkable. Heart/mediastinum: Cardiomediastinal silhouette is prominent and stable. Musculoskeletal: No acute osseous pathology. IMPRESSION: No acute cardiopulmonary disease/process. No significant change from prior studies.
== END | disposition home or self-care (01) ==
LOC: RADXRMAIN 15:16
PROVIDERS: ATTEND Internal Medicine Sleep Medicine
DX: R06.02 Shortness of breath (principal)
CPT/HCPCS: 71046

== ENCOUNTER 2022-07-09 07:00 | Observation (INO) | payer BC ==
[2022-07-09 08:38] LABS: Basophils % (A) 0 %; Eosinophils # (A) 0.1 k/uL (0-0.7); Eosinophils % (A) 2 %; HCT 45.6 % (39.0-53.0); HGB 14.3 gm/dL (13.0-17.5); Lymphocytes # (A) 1.6 k/uL (1.0-4.8); Lymphocytes % (A) 29 %; MCH 27.3 pg (25.0-35.0); MCHC 31.4 g/dL (31.0-37.0); MCV 86.9 fL (80.0-100.0); Mean Platelet Volume 7.4; Monocytes # (A) 0.2 k/uL (0-1.0); Monocytes % (A) 5 %; Neutrophils # (A) 3.2 k/uL (1.3-7.7); Neutrophils % (A) 61 %; Platelet Count 286 k/uL (150-450); RBC 5.24 m/uL (4.30-5.90); RDW 13.4 % (11.5-15.5); WBC 5.3 k/uL (3.8-10.6)
[2022-07-09 08:49] LABS: ALT 20 U/L (4-49); AST 23 U/L (17-59); African American GFR (CKD) >90 (>60 ml/min/1.73 sqM); Albumin 4.6 g/dL (3.5-5.0); Alkaline Phosphatase 57 U/L (38-126); Anion Gap 9 mmol/L; Blood Urea Nitrogen 16 mg/dL (9-20); Calcium 9.6 mg/dL (8.4-10.2); Carbon Dioxide 25 mmol/L (22-30); Chloride 106 mmol/L (98-107); Glucose 95 mg/dL (74-99); Lipase 56 U/L (23-300); Non-African American GFR(CKD) >90 (>60 ml/min/1.73 sqM); Potassium 4.4 mmol/L (3.5-5.1); Sodium 140 mmol/L (137-145); Total Bilirubin 0.7 mg/dL (0.2-1.3); Total Protein 7.9 g/dL (6.3-8.2)
[2022-07-09] MEDS ORDERED: MORPHINE SULFATE 4 MG/ML SYRINGE IVP STA (08:49)
[2022-07-09 09:10] LABS: Appearance,Urine Clear (Clear); Bilirubin,Urine Negative (Negative); Blood,Urine Negative (Negative); Color,Urine Colorless; Glucose,Urine (UA) Negative (Negative); Ketones,Urine Negative (Negative); Leukocyte Esterase,Urine Negative (Negative); Nitrite,Urine Negative (Negative); PH, Urine 6.5 (5.0-8.0); Protein,Urine Negative (Negative); Specific Gravity,Urine 1.003 (1.001-1.035); Urobilinogen,Urine <2.0 mg/dL (<2.0)
--- NOTE | 2022-07-09 09:23 | CT ---
EXAMINATION TYPE: CT abdomen pelvis w con DATE OF EXAM: 07/09/2022 COMPARISON: Most recent CT October 17, 2021 and older CTs HISTORY: Bilateral inguinal pain. History of hernia surgery. History of prostate cancer. CT DLP: 1388. mGycm, Automated Exposure Control for Dose Reduction was Utilized. CONTRAST: CT scan of the abdomen and pelvis is performed without oral and with IV Contrast, patient injected wi th 100ml mL of Isovue 300. FINDINGS: LUNG BASES: Trace bilateral pleural effusions on current study. LIVER/GB: No significant abnormality is appreciated. PANCREAS: No significant abnormality is seen. SPLEEN: Incidental splenule axial image 19. ADRENALS: Stable low dense thickening to both adrenal glands consistent with benign lipid rich hyperp lasia. KIDNEYS: Symmetric cortical medullary uptake and excretion without hydronephrosis seen bilaterally. BOWEL: No significant abnormality is seen. PROSTATE/SEMINAL VESICLES: Normal-sized prostate. LYMPH NODES: No greater than 1cm abdominal or pelvic lymph nodes are appreciated. OSSEOUS STRUCTURES: Grade 1 anterolisthesis L4 on L5 with moderate disc space narrowing and vacuum di sc phenomenon. OTHER: Persistent roughly 3.3 x 1.8 cm right lateral mass of predominantly fat density fairly stable from prior exams consistent with intramuscular lipoma or deep subcutaneous lipoma axial image 25. Interval repair of the small left inguinal hernia along the posterior medial aspect left groin region . Persistent demarcated extension of fat and mesenteric vessels along the left anterior lateral aspec t suspicious for small to moderate sized left inguinal hernia which is asymmetric to the opposite rig ht side. This is unchanged from prior study. At least small bilateral scrotal fluid collection or hyd roceles are redemonstrated. Prominence/slight aneurysmal change to bilateral common iliac arteries axial image 58 has similar sandie earance to prior study measuring up to 2.3 cm in diameter. IMPRESSION: No significant new or acute finding is seen to account for patient's clinical symptoms.
[2022-07-09] MEDS ORDERED: NALOXONE 0.4 MG/ML 1 ML VIAL IV PRN (10:35)
--- NOTE | 2022-07-09 10:35 | ED ---
Abdominal Pain HPI - General Chief Complaint: Abdominal Pain Stated Complaint: ABD PAIN Time Seen by Provider: 07/09/22 07:14 Source: patient Mode of arrival: ambulatory Limitations: no limitations - History of Present Illness Initial Comments: 62-year-old male with past medical history of hernia who presents emergency department reporting to left lower quadrant abdominal pain. Does have history of hernia with repair by Dr. Cheung. States that over the past week his abdomen has been hurting worse. He has been taking Motrin Tylenol at home with out any improvement in his pain. Does feel a bulge which he normally can reduce. He denies any urinary complaints. No diarrhea, constipation, black or bloody stools. No other alleviating, precipitating or modifying factors - Related Data Home Medications Medication Instructions Recorded Confirmed Doxazosin [Cardura] 4 mg PO DAILY@0300 03/21/19 07/09/22 amLODIPine [Norvasc] 10 mg PO DAILY@0300 03/21/19 07/09/22 lisinopriL [Zestril] 20 mg PO HS@1800 03/15/21 07/09/22 Atorvastatin [Lipitor] 20 mg PO HS@1800 07/09/22 07/09/22 Doxazosin [Cardura] 2 mg PO DAILY@0300 07/09/22 07/09/22 HYDROcodone/APAP 10-325MG [[place] 1 tab PO Q8H PRN 07/09/22 07/09/22 10-325] Previous Rx's Medication Instructions Recorded Cyclobenzaprine [Flexeril] 10 mg PO TID #30 tab 07/11/22 Ibuprofen [Motrin] 600 mg PO Q8HR PRN #30 tab 07/11/22 Tamsulosin [Flomax] 0.4 mg PO DAILY #5 cap 07/11/22 Allergies Allergy/AdvReac Type Severity Reaction Status Date / Time No Known Allergies Allergy Verified 07/10/22 10:39 Review of Systems ROS Statement: Those systems with pertinent positive or pertinent negative responses have been documented in the HPI. ROS Other: All systems not noted in ROS Statement are negative. Past Medical History Past Medical History: Cancer, Hyperlipidemia, Hypertension, Osteoarthritis (OA) Additional Past Medical History / Comment(s): AAA., gout., DDD., prostate cancer with radiation tx. , pre-diabetic., BPH. , left inguinal hernia., states "lump" by his ankle that hes had for years. History of Any Multi-Drug Resistant Organisms: None Reported Past Surgical History: Appendectomy, Back Surgery, Hernia Repair Additional Past Surgical History / Comment(s): hand surgery, Past Anesthesia/Blood Transfusion Reactions: No Reported Reaction Past Psychological History: No Psychological Hx Reported Smoking Status: Former smoker Past Alcohol Use History: Daily Past Drug Use History: None Reported General Exam Limitations: no limitations General appearance: alert, in no apparent distress Head exam: Present: atraumatic, normocephalic, normal inspection Eye exam: Present: normal appearance, PERRL, EOMI. Absent: scleral icterus, conjunctival injection, periorbital swelling ENT exam: Present: normal exam, mucous membranes moist Neck exam: Present: normal inspection. Absent: tenderness, meningismus, lymphadenopathy Respiratory exam: Present: normal lung sounds bilaterally. Absent: respiratory distress, wheezes, rales, rhonchi, stridor Cardiovascular Exam: Present: regular rate, normal rhythm, normal heart sounds. Absent: systolic murmur, diastolic murmur, rubs, gallop, clicks GI/Abdominal exam: Present: soft, tenderness (llq. inguinal hernia -reducible), normal bowel sounds. Absent: distended, guarding, rebound, rigid Extremities exam: Present: normal inspection, full ROM, normal capillary refill. Absent: tenderness, pedal edema, joint swelling, calf tenderness Back exam: Present: normal inspection Neurological exam: Present: alert, oriented X3, CN II-XII intact Psychiatric exam: Present: normal affect, normal mood Skin exam: Present: warm, dry, intact, normal color. Absent: rash Course Vital Signs 07/09/22 07/09/22 07/09/22 07:08 08:17 11:44 Temperature 98 F 98.2 F Pulse Rate 86 119 H 91 Respiratory 18 18 18 Rate Blood Pressure 117/75 132/90 141/89 O2 Sat by Pulse 96 95 97 Oximetry Medical Decision Making - Medical Decision Making Was pt. sent in by a medical professional or institution (, PA, PERSONAL SECRETARY, urgent care, hospital, or detention...) When possible be specific @ -No Did you speak to anyone other than the patient for history (EMS, parent, family, police, friend...)? What history was obtained from this source @ -No Did you review nursing and triage notes (agree or disagree)? Why? @ -I reviewed and agree with nursing and triage notes Were old charts reviewed (outside hosp., previous admission, EMS record, old EKG, old radiological studies, urgent care reports/EKG's, detention records)? Report findings @ -No old charts were reviewed Differential Diagnosis (chest pain, altered mental status, abdominal pain women, abdominal pain men, vaginal bleeding, weakness, fever, dyspnea, syncope, headache, dizziness, GI bleed, back pain, seizure, CVA, palpatations, mental health, musculoskeletal)? @ -diverticulitis, colitis, stragulated hernia, incarcerated hernia EKG interpreted by me (3pts min.). @ -No X-rays interpreted by me (1pt min.). @ -None done CT interpreted by me (1pt min.). @ -yes U/S interpreted by me (1pt. min.). @ -None done What testing was considered but not performed or refused? (CT, X-rays, U/S, labs)? Why? @ -None What meds were considered but not given or refused? Why? @ -None Did you discuss the management of the patient with other professionals (professionals i.e. , PA, PERSONAL SECRETARY, lab, RT, psych nurse, social sciences lecturer, bobbin disker, teacher, chief investment officer, showcase maker)? Give summary @ -Spoke with Dr. Cheung who wants patient admitted Was smoking cessation discussed for >3mins.? @ -No Was critical care preformed (if so, how long)? @ -No Were there social determinants of health that impacted care today? How? (Homele ssness, low income, unemployed, alcoholism, drug addiction, transportation, low edu. Level, literacy, decrease access to med. care, long term, rehab)? @ -No Was there de-escalation of care discussed even if they declined (Discuss DNR or withdrawal of care, Hospice)? DNR status @ -No What co-morbidities impacted this encounter? (DM, HTN, Smoking, COPD, CAD, Cancer, CVA, ARF, Chemo, Hep., AIDS, mental health diagnosis, sleep apnea, morbid obesity)? @ -None Was patient admitted / discharged? Hospital course, mention meds given and route, prescriptions, significant lab abnormalities, going to OR and other pertinent info. @ -Upon arrival patient was placed into room 23. history and physical exam was performed. Patient does have a reducible hernia on physical exam. Laboratory studies are conducted. CT is performed which demonstrates left inguinal hernia. Results are discussed with after Skye. Requested the patient be admitted and she will perform surgery on the patient tomorrow. Patient is agreeable to this admitted to for stable condition Undiagnosed new problem with uncertain prognosis? @ -No Drug Therapy requiring intensive monitoring for toxicity (Heparin, Nitro, Insulin, Cardizem)? @ -No Were any procedures done? @ -No Diagnosis/symptom? @ -acute llq abd pain, acute reducible hernia Acute, or Chronic, or Acute on Chronic? @ -acute Uncomplicated (without systemic symptoms) or Complicated (systemic symptoms)? @ -uncomplicated Side effects of treatment? @ -No Exacerbation, Progression, or Severe Exacerbation? @ -No Poses a threat to life or bodily function? How? (Chest pain, USA, MA, pneumonia, PE, COPD, DKA, ARF, appy, cholecystitis, CVA, Diverticulitis, Homicidal, Suicidal, threat to staff... and all critical care pts) @ -No - Lab Data Result diagrams: 07/11/22 08:47 07/11/22 08:47 Lab Results 07/09/22 07/09/22 07/09/22 Range/Units 08:20 08:20 08:20 WBC 5.3 (3.8-10.6) k/uL RBC 5.24 (4.30-5.90) m/uL Hgb 14.3 (13.0-17.5) gm/dL Hct 45.6 (39.0-53.0) % MCV 86.9 (80.0-100.0) fL MCH 27.3 (25.0-35.0) pg MCHC 31.4 (31.0-37.0) g/dL RDW 13.4 (11.5-15.5) % Plt Count 286 (150-450) k/uL MPV 7.4 Neutrophils % 61 % Lymphocytes % 29 % Monocytes % 5 % Eosinophils % 2 % Basophils % 0 % Neutrophils # 3.2 (1.3-7.7) k/uL Lymphocytes # 1.6 (1.0-4.8) k/uL Monocytes # 0.2 (0-1.0) k/uL Eosinophils # 0.1 (0-0.7) k/uL Basophils # 0.0 (0-0.2) k/uL Sodium 140 (137-145) mmol/L Potassium 4.4 (3.5-5.1) mmol/L Chloride 106 (98-107) mmol/L Carbon Dioxide 25 (22-30) mmol/L Anion Gap 9 mmol/L BUN 16 (9-20) mg/dL Creatinine 0.90 (0.66-1.25) mg/dL Est GFR (CKD-EPI)AfAm >90 (>60 ml/min/1.73 sqM) Est GFR (CKD-EPI)NonAf >90 (>60 ml/min/1.73 sqM) Glucose 95 (74-99) mg/dL Plasma Lactic Acid Kenny (0.7-2.0) mmol/L Calcium 9.6 (8.4-10.2) mg/dL Total Bilirubin 0.7 (0.2-1.3) mg/dL AST 23 (17-59) U/L ALT 20 (4-49) U/L Alkaline Phosphatase 57 (38-126) U/L Total Protein 7.9 (6.3-8.2) g/dL Albumin 4.6 (3.5-5.0) g/dL Lipase 56 (23-300) U/L Urine Color Colorless Urine Appearance Clear (Clear) Urine pH 6.5 (5.0-8.0) Ur Specific [place] 1.003 (1.001-1.035) Urine Protein Negative (Negative) Urine Glucose (UA) Negative (Negative) Urine Ketones Negative (Negative) Urine Blood Negative (Negative) Urine Nitrite Negative (Negative) Urine Bilirubin Negative (Negative) Urine Urobilinogen <2.0 (<2.0) mg/dL Ur Leukocyte Esterase Negative (Negative) 07/09/22 Range/Units 08:20 WBC (3.8-10.6) k/uL RBC (4.30-5.90) m/uL Hgb (13.0-17.5) gm/dL Hct (39.0-53.0) % MCV (80.0-100.0) fL MCH (25.0-35.0) pg MCHC (31.0-37.0) g/dL RDW (11.5-15.5) % Plt Count (150-450) k/uL MPV Neutrophils % % Lymphocytes % % Monocytes % % Eosinophils % % Basophils % % Neutrophils # (1.3-7.7) k/uL Lymphocytes # (1.0-4.8) k/uL Monocytes # (0-1.0) k/uL Eosinophils # (0-0.7) k/uL Basophils # (0-0.2) k/uL Sodium (137-145) mmol/L Potassium (3.5-5.1) mmol/L Chloride (98-107) mmol/L Carbon Dioxide (22-30) mmol/L Anion Gap mmol/L BUN (9-20) mg/dL Creatinine (0.66-1.25) mg/dL Est GFR (CKD-EPI)AfAm (>60 ml/min/1.73 sqM) Est GFR (CKD-EPI)NonAf (>60 ml/min/1.73 sqM) Glucose (74-99) mg/dL Plasma Lactic Acid Kenny 1.1 (0.7-2.0) mmol/L Calcium (8.4-10.2) mg/dL Total Bilirubin (0.2-1.3) mg/dL AST (17-59) U/L ALT (4-49) U/L Alkaline Phosphatase (38-126) U/L Total Protein (6.3-8.2) g/dL Albumin (3.5-5.0) g/dL Lipase (23-300) U/L Urine Color Urine Appearance (Clear) Urine pH (5.0-8.0) Ur Specific [place] (1.001-1.035) Urine Protein (Negative) Urine Glucose (UA) (Negative) Urine Ketones (Negative) Urine Blood (Negative) Urine Nitrite (Negative) Urine Bilirubin (Negative) Urine Urobilinogen (<2.0) mg/dL Ur Leukocyte Esterase (Negative) Disposition Clinical Impression: Left inguinal hernia Disposition: ADMITTED IP TO THIS [facility] Condition: Stable Is patient prescribed a controlled substance at d/c from ED?: No Time of Disposition: 10:35 Decision to Admit Reason: Admit from EC Decision Date: 07/09/22 Decision Time: 10:35
[2022-07-09] MEDS: SODIUM CHLORIDE 0.9% 1,000 ML IV SCH (11:45)
--- NOTE | 2022-07-09 14:19 | P.GSHP ---
History of Present Illness H&P Date: 07/09/22 CHIEF COMPLAINT: Left inguinal abdominal pain HISTORY OF PRESENT ILLNESS: This is a 62-year-old male who presented to the hospital with complaints of left inguinal abdominal pain for the past week. Pain did worsen with standing at work. He describes the pain as sharp and crampy. He has been dealing with constipation. Computed tomography scan did show persistent demarcated extension of that and mesenteric vessels along the left anterior lateral aspect suspicious for small to moderate-sized left inguinal hernia which is asymmetric to the opposite right side. Patient has history of repair of bilateral inguinal hernia repair in November 2021. PAST MEDICAL HISTORY: See list. PAST SURGICAL HISTORY: See list. Appendectomy MEDICATIONS: See list. ALLERGIES: See list. SOCIAL HISTORY: No illicit drug use. REVIEW OF SYSTEMS: CONSTITUTIONAL: Denies fever or chills. HEENT: Denies blurred vision, vision changes, or eye pain. Denies hemoptysis ENDOCRINE: Denies heat or cold intolerance. CARDIOVASCULAR: Denies chest pain or pressure. RESPIRATORY: No shortness of breath. GASTROINTESTINAL: Denies abdominal pain. Denies nausea or vomiting. NEURO: Denies history of seizures. PSYCH: No depression or suicidal ideation HEMATOLOGIC: Denies bleeding disorders. LYMPHATIC: The patient denies any lumps and bumps around the neck. GENITOURINARY: Denies any blood in urine or increased urinary frequency. MUSCULOSKELETAL: Denies myalgias. Denies joint swelling. Denies decreased range of motion beyond patients baseline. SKIN: Denies pruitis. Denies rash. PHYSICAL EXAM: VITAL SIGNS: Reviewed GENERAL: Well-developed in no acute distress. HEENT: No sclera icterus. Extraocular movements grossly intact. Moist buccal mucosa. Head is atraumatic, normocephalic. Hears conversational speech. No nasal drainage. NECK: Supple without lymphadenopathy. CHEST: Non-labored respirations and equal bilateral excursions. CARDIOVASCULAR: Palpable 2+ radial pulses. ABDOMEN: Soft. Nondistended. Left groin tenderness MUSCULOSKELETAL: No clubbing or cyanosis. NEUROLOGIC: No focal or lateralizing signs. Cranial nerves II through XII grossly intact. PSYCH: Appropriate affect. Alert and oriented to person, place and time. SKIN: Well perfused. Good skin turgor. LABORATORY DATA: WBC is 5.3 Hgb 14.3 platelets 286 Sodium is 140 potassium 4.4 creatinine 0.90 LFTs normal Urinalysis negative IMAGING: Computed tomography scan findings as stated above ASSESSMENT: 1. Left groin pain with evidence of a left inguinal hernia 2. Constipation 3. History of hypertension 4. History hyperlipidemia PLAN: -Patient scheduled for Robotic left inguinal hernia repair tomorrow, 07/10/[address] Cheung -Regular diet today -Nothing by mouth after midnight -Continue supportive care Physician Side Laster note has been reviewed by physician. Signing provider agrees with the documented findings, assessment, and plan of care. Past Medical History Past Medical History: Cancer, Hyperlipidemia, Hypertension, Osteoarthritis (OA) Additional Past Medical History / Comment(s): AAA., gout., DDD., prostate cancer with radiation tx. , pre-diabetic., BPH. , left inguinal hernia., states "lump" by his ankle that hes had for years. History of Any Multi-Drug Resistant Organisms: None Reported Past Surgical History: Appendectomy, Back Surgery, Hernia Repair Additional Past Surgical History / Comment(s): hand surgery, Past Anesthesia/Blood Transfusion Reactions: No Reported Reaction Past Psychological History: No Psychological Hx Reported Smoking Status: Former smoker Past Alcohol Use History: Daily Past Drug Use History: None Reported Medications and Allergies Home Medications Medication Instructions Recorded Confirmed Type Doxazosin [Cardura] 4 mg PO DAILY@0300 03/21/19 07/09/22 History amLODIPine [Norvasc] 10 mg PO DAILY@0 03/21/19 07/09/22 History lisinopriL [Zestril] 20 mg PO HS@1800 03/15/21 07/09/22 History Atorvastatin [Lipitor] 20 mg PO HS@1800 07/09/22 07/09/22 History Doxazosin [Cardura] 2 mg PO DAILY@0300 07/09/22 07/09/22 History HYDROcodone/APAP 10-325MG [[place] 1 tab PO Q8H PRN 07/09/22 07/09/22 History 10-325] Allergies Allergy/AdvReac Type Severity Reaction Status Date / Time No Known Allergies Allergy Verified 07/09/22 11:25 Surgical - Exam Vital Signs Temp Pulse Resp BP Pulse Ox 98 F 86 18 117/75 96 07/09/22 07:08 07/09/22 07:08 07/09/22 07:08 07/09/22 07:08 07/09/22 07:08 Results - Labs 07/09/22 08:20 07/09/22 08:20 Diabetes panel 07/09/22 Range/Units 08:20 Sodium 140 (137-145) mmol/L Potassium 4.4 (3.5-5.1) mmol/L Chloride 106 (98-107) mmol/L Carbon Dioxide 25 (22-30) mmol/L BUN 16 (9-20) mg/dL Creatinine 0.90 (0.66-1.25) mg/dL Glucose 95 (74-99) mg/dL Calcium 9.6 (8.4-10.2) mg/dL AST 23 (17-59) U/L ALT 20 (4-49) U/L Alkaline Phosphatase 57 (38-126) U/L Total Protein 7.9 (6.3-8.2) g/dL Albumin 4.6 (3.5-5.0) g/dL Calcium panel 07/09/22 Range/Units 08:20 Calcium 9.6 (8.4-10.2) mg/dL Albumin 4.6 (3.5-5.0) g/dL Pituitary panel 07/09/22 Range/Units 08:20 Sodium 140 (137-145) mmol/L Potassium 4.4 (3.5-5.1) mmol/L Chloride 106 (98-107) mmol/L Carbon Dioxide 25 (22-30) mmol/L BUN 16 (9-20) mg/dL Creatinine 0.90 (0.66-1.25) mg/dL Glucose 95 (74-99) mg/dL Calcium 9.6 (8.4-10.2) mg/dL Adrenal panel 07/09/22 Range/Units 08:20 Sodium 140 (137-145) mmol/L Potassium 4.4 (3.5-5.1) mmol/L Chloride 106 (98-107) mmol/L Carbon Dioxide 25 (22-30) mmol/L BUN 16 (9-20) mg/dL Creatinine 0.90 (0.66-1.25) mg/dL Glucose 95 (74-99) mg/dL Calcium 9.6 (8.4-10.2) mg/dL Total Bilirubin 0.7 (0.2-1.3) mg/dL AST 23 (17-59) U/L ALT 20 (4-49) U/L Alkaline Phosphatase 57 (38-126) U/L Total Protein 7.9 (6.3-8.2) g/dL Albumin 4.6 (3.5-5.0) g/dL
[2022-07-09] MEDS: ATORVASTATIN 20 MG TAB PO SCH (18:33)
[2022-07-09] MEDS: lisinopriL 20 MG TAB PO SCH (18:34)
--- NOTE | 2022-07-09 21:06 | P.CONS ---
History of Present Illness - Reason for Consult Consult date: 07/09/22 Medical Management Requesting physician: Melissa Cheung - Chief Complaint Possible left inguinal hernia repair - History of Present Illness HISTORY OF PRESENT ILLNESS: This is a 62-year-old -I[place] gentleman with a previous medical history significant for hypertension and hypertensive cardiovascular disease, hyperlipidemia, osteoarthritis, enlarged prostate, history of bilateral inguinal hernia repair that was done back in [address] Cheung patient presented to the emergency department at [facility] today with a one- week history of increased left groin abdominal pain associated with movement and standing better with sitting and laying down, with minimal bulge at the left groin area that is tender to palpation, patient ended up going for computed tomography scan of the abdomen and pelvis with contrast that was done in the ER and that showed possible mild to moderate left inguinal hernia Jorden as symmetric to the one on the right side, therefore he was admitted under general surgery I was asked to see the patient for medical management he is scheduled tomorrow for robotic-assisted left and without hernia repair. REVIEW OF SYSTEMS: Constitutional: No documented fever, no chills, no night sweats. No weight change. No weakness, fatigue or lethargy. No daytime sleepiness. HEENT: No headache. No blurred vision or double vision, no loss of vision. No loss of Hearing, no ringing in the ears, no dizziness. No nasal drainage or congestion. No epistaxis. No sore throat. Lungs: No shortness of breath, no cough, no sputum production. No wheezing. Reports dyspnea with activity. Cardiovascular: No chest pain, no lower extremity edema. No palpitations. No paroxysmal nocturnal dyspnea. No orthopnea. No lightheadedness or dizziness. No syncopal episodes. Abdominal: Reports abdominal pain. No nausea, vomiting. No diarrhea. positive for constipation. No bloody or tarry stools reports loss of appetite. Genitourinary: No dysuria, increased frequency, urgency. No urinary retention. Musculoskeletal: No myalgias. No muscle weakness, no gait dysfunction, no frequent falls. No back pain. No neck pain. Integumentary: No wounds, no lesions. No rash or pruritus. No unusual bruising. No change in hair or nails. Neurologic: No aphasia. No facial droop. No change in mentation. No head injury. No headache. No paralysis. No paresthesia. Psychiatric: No depression. No anxiety. No mood swings. Endocrine: No abnormal blood sugars. No weight change. PAST MEDICAL HISTORY: Hypertension and hypertensive cardiovascular disease . Hyperlipidemia. Osteoarthritis. Enlarged prostate. Peptic ulcer disease. Vitamin D deficiency. PAST SURGICAL HISTORY: Bilateral inguinal hernia repair November 2021 Colonoscopy 2019 Bilateral arthroscopic knee surgery. appendectomy. Lipoma resection from the thoracic spine 2020. SOCIAL HISTORY: Patient used to smoke about half pack every day since the age of 19 and he quit about 4 years ago, he denies any alcohol ingestion, no drug use or abuse. FAMILY HISTORY: Father is 80-year-old with no health issues, mother is 75 with hypertension and hyperlipidemia, patient has a daughter with no health issues. PHYSICAL EXAMINATION: General: 62-year-old -Ivorian gentleman is laying down in bed in no apparent distress. HEENT: Head is atraumatic, normocephalic, pupils were equal round reactive to light and recommendation, extraocular muscle movement were intact, sclera nonicteric, conjunctivae were pale, mucous membranes of the mouth are somewhat dry. Neck: Supple, no JVP, normal carotid upstroke bilaterally, no lymphadenopathy. Chest: Decreased breath sounds at the bases, few rhonchi, no expiratory wheezes, no chest wall tenderness, no intercostal retractions. Heart: First heart sound is normal, second heart sounds normal there is no gallop or murmur. Abdomen: Soft, nontender, nondistended, positive bowel sounds. there is minimal bulge in the left groin area no rebound or guarding. Extremities: There is no edema no calf tenderness DP +2 bilaterally. Neurologic examination: Patient is awake alert and oriented x3 , cranial nerves II-12 appear grossly intact, muscle power were 5 out of 5 in upper extremities and 5 out of 5 in bilateral lower extremities, deep tendon reflexes normal bilaterally. ASSESSMENT AND PLAN: 1. Left groin pain likely due to a mild left inguinal hernia repair. Patient is scheduled to go for robotic-assisted left inguinal hernia repair that would be scheduled with Dr. Cheatham, patient does not have any contribution medication for the post surgical intervention, patient is aware of the risks versus benefit of recurrent hernia repair. 2. Hypertension and hypertensive cardiovascular disease. Continue patient on amlodipine 10 mg once every day, continue lisinopril 20 mg once every day, monitor the patient's symptoms very closely 3. Hyperlipidemia. Continue patient on atorvastatin 40 mg orally once every day per 4. Enlarged prostate. Continue doxazosin 6 mg orally once every day. 5. DVT prophylaxis. The patient did not receive any heparin as he is going for surgery tomorrow morning. 6. GI prophylaxis. Protonix 40 mg orally once every day. 7. Thank you for the consult Past Medical History Past Medical History: Cancer, Hyperlipidemia, Hypertension, Osteoarthritis (OA) Additional Past Medical History / Comment(s): AAA., gout., DDD., prostate cancer with radiation tx. , pre-diabetic., BPH. , left inguinal hernia., states "lump" by his ankle that hes had for years. History of Any Multi-Drug Resistant Organisms: None Reported Past Surgical History: Appendectomy, Back Surgery, Hernia Repair Additional Past Surgical History / Comment(s): hand surgery, Past Anesthesia/Blood Transfusion Reactions: No Reported Reaction Past Psychological History: No Psychological Hx Reported Smoking Status: Former smoker Past Alcohol Use History: Daily Past Drug Use History: None Reported Medications and Allergies Home Medications Medication Instructions Recorded Confirmed Type Doxazosin [Cardura] 4 mg PO DAILY@0300 03/21/19 07/09/22 History amLODIPine [Norvasc] 10 mg PO DAILY@0300 03/21/19 07/09/22 History lisinopriL [Zestril] 20 mg PO HS@1800 03/15/21 07/09/22 History Atorvastatin [Lipitor] 20 mg PO HS@1800 07/09/22 07/09/22 History Doxazosin [Cardura] 2 mg PO DAILY@0300 07/09/22 07/09/22 History HYDROcodone/APAP 10-325MG [[place] 1 tab PO Q8H PRN 07/09/22 07/09/22 History 10-325] Allergies Allergy/AdvReac Type Severity Reaction Status Date / Time No Known Allergies Allergy Verified 07/09/22 11:25 Physical Exam Vitals: Vital Signs Temp Pulse Pulse Resp BP BP Pulse Ox 07/09/22 14:23 98.3 F 73 14 119/78 98 07/09/22 12:10 98.1 F 62 17 113/72 98 07/09/22 11:44 98.2 F 91 18 141/89 97 07/09/22 08:17 119 H 18 132/90 95 07/09/22 07:08 98 F 86 18 117/75 96 Intake and Output 07/09/22 07/09/22 07/09/22 06:59 14:59 22:59 Other: # Voids 1 Weight 108.862 kg Results CBC & Chem 7: 07/09/22 08:20 07/09/22 08:20
[2022-07-10] MEDS: SODIUM CHLORIDE 0.9% 1,000 ML IV SCH ×2 (02:03→20:07)
[2022-07-10] MEDS: DOXAZOSIN 4 MG TAB PO SCH (05:24)
[2022-07-10] MEDS: DOXAZOSIN 2 MG TAB PO SCH (05:24)
[2022-07-10] MEDS: amLODIPine 10 MG TAB PO SCH (05:24)
[2022-07-10] MEDS: PANTOPRAZOLE 40 MG TABLET PO SCH ×2 (05:25→17:08)
--- NOTE | 2022-07-10 08:08 | P.PN ---
Subjective Progress Note Date: 07/10/22 Patient reports moderate severe and intractable left lower quadrant abdominal pain. Reports hernia with swelling along the left groin. CT of the abdomen and pelvis reviewed demonstrating residual left inguinal hernia after reduction by ER provider. Recommend emergent left inguinal hernia repair for recurrence Objective - Vital Signs Vital signs: Vital Signs Temp 98.3 F 07/10/22 07:00 Pulse 77 07/10/22 07:00 Resp 16 07/10/22 07:00 BP 114/80 07/10/22 07:00 Pulse Ox 100 07/10/22 07:00 FiO2 Intake & Output 07/09/22 07/10/22 07/10/22 18:59 06:59 18:59 Weight 108.862 kg Other: Voiding Method Toilet # Voids 1 1 - Labs CBC & Chem 7: 07/09/22 08:20 07/09/22 08:20
[2022-07-10] MEDS: MORPHINE SULFATE 4 MG/ML SYRINGE IV PRN ×3 (09:38→22:02)
[2022-07-10] MEDS ORDERED: LACTATED RINGERS 1,000 ML IV ONE ×2 (10:41→12:27)
[2022-07-10 10:46] LABS: Glucose,Whole Blood 83 mg/dL (70-110)
[2022-07-10] MEDS ORDERED: MIDAZOLAM 2 MG/2 ML VIAL IVP ONE ×2 (11:00→11:15)
[2022-07-10] MEDS ORDERED: HEPARIN SODIUM,PORCINE/PF 5,000 UNIT/0.5 ML SYRINGE SQ ONE (11:04)
[2022-07-10 11:07] LABS: Basophils # (A) 0.01 X 10*3/uL (0.00-0.10); Basophils % (A) 0.2 %; Eosinophils % (A) 1.9 %; HCT 44.1 % (39.6-50.0); HGB 13.5 g/dL (13.0-17.0); Immature Grans, Automated 0.2 %; Lymphocytes # (A) 1.67 X 10*3/uL (0.90-5.00); Lymphocytes % (A) 31.6 %; MCH 27.2 pg (27.0-32.0); MCHC 30.6 g/dL (32.0-37.0); MCV 88.7 fL (80.0-97.0); Mean Platelet Volume 10.1 fL (9.5-12.2); Monocytes # (A) 0.38 X 10*3/uL (0.20-1.00); Monocytes % (A) 7.2 %; NRBC Per 100 WBC 0 /100 WBCS (0.0-0.0); Neutrophils # (A) 3.11 X 10*3/uL (1.80-7.70); Neutrophils % (A) 58.9 %; Platelet Count 263 X 10*3/uL (140-440); RBC 4.97 X 10*6/uL (4.40-5.60); RDW 13.3 % (11.5-14.5); WBC 5.28 X 10*3/uL (4.50-10.00)
[2022-07-10 11:16] LABS: African American GFR (CKD) 84.1 (60.0-200.0); Anion Gap 8.3 mmol/L (10.00-18.00); BUN/Creat Ratio 15.45 Ratio (12.00-20.00); Calcium 9.4 mg/dL (8.7-10.3); Carbon Dioxide 27.7 mmol/L (20.0-27.5); Non-African American GFR(CKD) 72.6 (60.0-200.0); Potassium 4.8 mmol/L (3.5-5.5)
[2022-07-10] MEDS ORDERED: DEXAMETHASONE SOD PHOSPHATE 4 MG/ML 1 ML VIAL IVP ONE (11:29)
[2022-07-10] MEDS ORDERED: HEPARIN SODIUM,PORCINE 5,000 UNIT/ML 1 ML VIAL SQ ONE (11:30)
[2022-07-10] MEDS ORDERED: ROCURONIUM 10 MG/ML (5 ML VIAL) IV ONE (11:50)
[2022-07-10] MEDS ORDERED: MIDAZOLAM 2 MG/2 ML VIAL ONE (11:50)
[2022-07-10] MEDS ORDERED: SUCCINYLCHOLINE CHLORIDE 200 MG/10 ML VIAL IV ONE (11:50)
[2022-07-10] MEDS ORDERED: PROPOFOL 10 MG/ML 20 ML VIAL IV ONE (11:50)
[2022-07-10] MEDS ORDERED: LIDOCAINE 2% INJ 20 MG/ML (2 ML VIAL) ONE (11:50)
[2022-07-10] MEDS ORDERED: GLYCOPYRROLATE 0.2 MG/ML 2 ML VIAL ONE (11:50)
[2022-07-10] MEDS ORDERED: ROPIVACAINE 5 MG/ML 30 ML VIAL ONE (11:50)
[2022-07-10] MEDS ORDERED: NEOSTIGMINE 1 MG/ML 10 ML VIAL ONE (11:50)
[2022-07-10] MEDS ORDERED: HYDROmorphone (PF) 1 MG/ML ONE (11:50)
[2022-07-10] MEDS ORDERED: KETOROLAC 15 MG/ML 1 ML VIAL ONE (11:50)
[2022-07-10] MEDS ORDERED: fentaNYL (PF) 50 MCG/ML 2 ML AMP ONE (11:50)
[2022-07-10] MEDS ORDERED: DEXAMETHASONE SOD PHOSPHATE 4 MG/ML 1 ML VIAL ONE (11:50)
[2022-07-10] MEDS ORDERED: ePHEDrine 50 MG/ML 1 ML VIAL ONE (11:50)
[2022-07-10] MEDS ORDERED: BUPIVACAINE (PF) 0.25% 30 ML VIAL SQ ONE (11:53)
--- NOTE | 2022-07-10 13:46 | P.PN ---
Subjective Progress Note Date: 07/10/22 HISTORY OF PRESENT ILLNESS: This is a 62-year-old -[place] gentleman with a previous medical history significant for hypertension and hypertensive cardiovascular disease, hyperlipidemia, osteoarthritis, enlarged prostate, history of bilateral inguinal hernia repair that was done back in [place] [address] Cheung patient presented to the emergency department at [facility] today with a one- week history of increased left groin abdominal pain associated with movement and standing better with sitting and laying down, with minimal bulge at the left groin area that is tender to palpation, patient ended up going for computed tomography scan of the abdomen and pelvis with contrast that was done in the ER and that showed possible mild to moderate left inguinal hernia Jorden as symmet rohan to the one on the right side, therefore he was admitted under general surgery I was asked to see the patient for medical management he is scheduled tomorrow for robotic-assisted left and without hernia repair. 07/10: Patient is scheduled today for inguinal hernia repair with Dr. Cheung. He is currently nothing by mouth. No issues overnight. Blood pressure 119/73, heart rate in the 50s to 70s. Repeat blood work reveals WBC 5.2, hemoglobin 13.5, platelet count 263. Sodium 142, potassium 4.8, chloride 106, CO2 27, BUN 17 and creatinine 1.1. Anticipate probable discharge home later today. REVIEW OF SYSTEMS: Constitutional: No documented fever, no chills, no night sweats. No weight change. No weakness, fatigue or lethargy. No daytime sleepiness. HEENT: No headache. No blurred vision or double vision, no loss of vision. No loss of Hearing, no ringing in the ears, no dizziness. No nasal drainage or congestion. No epistaxis. No sore throat. Lungs: No shortness of breath, no cough, no sputum production. No wheezing. Reports dyspnea with activity. Cardiovascular: No chest pain, no lower extremity edema. No palpitations. No paroxysmal nocturnal dyspnea. No orthopnea. No lightheadedness or dizziness. No syncopal episodes. Abdominal: Reports abdominal pain. No nausea, vomiting. No diarrhea. positive for constipation. No bloody or tarry stools reports loss of appetite. Genitourinary: No dysuria, increased frequency, urgency. No urinary retention. Musculoskeletal: No myalgias. No muscle weakness, no gait dysfunction, no frequent falls. No back pain. No neck pain. Integumentary: No wounds, no lesions. No rash or pruritus. No unusual bruising. No change in hair or nails. Neurologic: No aphasia. No facial droop. No change in mentation. No head injury. No headache. No paralysis. No paresthesia. Psychiatric: No depression. No anxiety. No mood swings. Endocrine: No abnormal blood sugars. No weight change. PHYSICAL EXAMINATION: General: 62-year-old -[place] gentleman is laying down in bed in no apparent distress. HEENT: Head is atraumatic, normocephalic, pupils were equal round reactive to light and recommendation, extraocular muscle movement were intact, sclera nonicteric, conjunctivae were pale, mucous membranes of the mouth are somewhat dry. Neck: Supple, no JVP, normal carotid upstroke bilaterally, no lymphadenopathy. Chest: Decreased breath sounds at the bases, few rhonchi, no expiratory wheezes, no chest wall tenderness, no intercostal retractions. Heart: First heart sound is normal, second heart sounds normal there is no gallop or murmur. Abdomen: Soft, nontender, nondistended, positive bowel sounds. there is minimal bulge in the left groin area no rebound or guarding. Extremities: There is no edema no calf tenderness DP +2 bilaterally. Neurologic examination: Patient is awake alert and oriented x3 , cranial nerves II-12 appear grossly intact, muscle power were 5 out of 5 in upper extremities and 5 out of 5 in bilateral lower extremities, deep tendon reflexes normal bilaterally. ASSESSMENT AND PLAN: 1. Left groin pain likely due to a mild left inguinal hernia repair. Patient is scheduled to go for robotic-assisted left inguinal hernia repair that would be scheduled with Dr. Cheatham, patient does not have any contribution medication for the post surgical intervention, patient is aware of the risks versus benefit of recurrent hernia repair. 2. Hypertension and hypertensive cardiovascular disease. Continue patient on amlodipine 10 mg once every day, continue lisinopril 20 mg once every day, monitor the patient's symptoms very closely 3. Hyperlipidemia. Continue patient on atorvastatin 40 mg orally once every day per 4. Enlarged prostate. Continue doxazosin 6 mg orally once every day. 5. DVT prophylaxis. The patient did not receive any heparin as he is going for surgery tomorrow morning. 6. GI prophylaxis. Protonix 40 mg orally once every day. 7. Thank you for the consult Impression and plan of care have been directed as dictated by the signing physician. Saira Friedman nurse practitioner acting as scribe for signing physician. Objective - Vital Signs Vital signs: Vital Signs Temp 98.3 F 07/10/22 07:00 Pulse 77 07/10/22 07:00 Resp 16 07/10/22 07:00 BP 114/80 07/10/22 07:00 Pulse Ox 100 07/10/22 07:00 FiO2 Intake & Output 07/09/22 07/10/22 07/10/22 18:59 06:59 18:59 Weight 108.862 kg Other: Voiding Method Toilet # Voids 1 1 - Labs CBC & Chem 7: 07/10/22 06:44 07/10/22 06:44
[2022-07-10] MEDS: ATORVASTATIN 20 MG TAB PO SCH (17:08)
[2022-07-10] MEDS: lisinopriL 20 MG TAB PO SCH (17:08)
[2022-07-10] MEDS: HYDROcodone/APAP 10-325MG 1 EACH TAB PO PRN (20:12)
[2022-07-10] MEDS: TAMSULOSIN 0.4 MG CAP.ER.24H PO SCH (20:13)
[2022-07-11 03:35] VITALS: RESP 18
[2022-07-11] MEDS: amLODIPine 10 MG TAB PO SCH (04:46)
[2022-07-11] MEDS: DOXAZOSIN 2 MG TAB PO SCH (04:47)
[2022-07-11] MEDS: DOXAZOSIN 4 MG TAB PO SCH (04:47)
[2022-07-11] MEDS: SODIUM CHLORIDE 0.9% 1,000 ML IV SCH (04:47)
[2022-07-11] MEDS: PANTOPRAZOLE 40 MG TABLET PO SCH (04:47)
[2022-07-11] MEDS: HYDROcodone/APAP 10-325MG 1 EACH TAB PO PRN (06:30)
[2022-07-11 07:26] VITALS: TEMP 98
[2022-07-11] MEDS ORDERED: ONDANSETRON 4 MG/2 ML VIAL IVP PRN (07:35)
--- NOTE | 2022-07-11 07:35 | P.OP ---
Date of Procedure: 07/10/22 Description of Procedure: SURGEON: SEFERINO LEONARD MD PREOPERATIVE DIAGNOSES: 1. Recurrent left inguinal hernia with intractable left lower quadrant abdominal pain 2. Right inguinal pain 3. History of prostate cancer status post radiation 4. Hypertensive heart disease 5. Abdominal aortic aneurysm 6. Hyperlipidemia 7. Gout 8. History of alcohol use POSTOPERATIVE DIAGNOSES: 1. Recurrent left inguinal hernia, indirect, with large bowel obstruction 2. Right inguinal pain 3. History of prostate cancer status post radiation 4. Hypertensive heart disease 5. Abdominal aortic aneurysm 6. Hyperlipidemia 7. Gout 8. History of alcohol use 9. Severe pelvic adhesions 10. Fatty liver disease OPERATION: 1. Robotic-assisted da Jose Xi laparoscopic lysis of adhesions over 1 hr 2. Robotic-assisted da Jose Xi laparoscopic reduction of large bowel obstruction the sigmoid colon 3. Robotic-assisted da Jose Xi laparoscopic pelvic reconstruction with repair of large recurrent incarcerated left indirect inguinal hernia with mesh, 10 x [address] ANESTHESIA: General with local anesthetic ESTIMATED BLOOD LOSS: 5 mL. SPECIMENS: None COMPLICATIONS: None. FINDINGS: 1. Moderate pelvic adhesions of omentum to abdominal and pelvic wall 2. Large bowel obstruction involving sigmoid colon through recurrent left inguinal hernia, indirect 3. Recurrent left inguinal hernia with new large defect of posterior floor 4. Severe distortion/warping of mesh along the inferior aspect 5. Cecum adherent to the mesh and pelvic floor lysed 6. Complete reconstruction of left posterior inguinal/pelvic floor using mesh 7. No recurrent hernia at the right groin INDICATIONS: The patient is a 62-year-old gentleman who presented emergently to the emergency room for severe left lower quadrant abdominal pain and recurrent left inguinal hernia. Clinical findings consistent with intermittent large bowel obstruction. Emergent surgical intervention with left inguinal hernia repair described. Benefits and risks including bleeding, infection, injury to the vas deferens as well as sterility and chronic groin pain were reviewed. Placement of mesh was also described. Informed consent was obtained. DESCRIPTION: In the preoperative area, the patient was marked with indelible marker along the inguinal hernia. The patient was brought to the operating room and initially laid in supine position. The abdomen had been prepped and draped in standard sterile fashion. Ioban draping was also placed. Prior to incision, a timeout protocol was confirmed with surgical team regarding patient's name including procedures to be performed and location along the right groin. Initial positioning for the robotic assisted ports were selected whereby 20 cm superior to the target anatomy, 0 degree 5 mm laparoscopic trocar entry was performed at the left upper quadrant. The abdomen was insufflated to 15 mmHg which he had tolerated well. Diagnostic laparoscopy demonstrated no injury to bowel, viscera or mesentery. Moderate intra-abdominal adhesions of along the epigastrium and pelvis was identified and complexity to this case. The omentum was adherent to the left pelvis involving the sigmoid colon. Similarly, dense adhesions or from of the cecum to the abdominal wall and involving the omentum. Next, along the epigastrium, 8 mm robot trocar was placed. An 8-mm robotic trocar was placed under direct visualization at the right upper quadrant. An 8 mm port was placed at the left upper quadrant. All trocars were positioned between 10-cm apart from each other. An additional laparoscopic 12 mm trochar was placed along the right lateral abdominal wall. The [employer] XI robot was primed, draped, prepared for docking along upper abdomen of the patient. The patient was positioned 14 steep Trendelenburg position I then went to the [employer] console. The event marketing assistant was at bedside for exchange of the robot arms and equipment. Extensive lysis of adhesions over 1 hr was performed. Dissection of the omentum from the pelvis including the sigmoid colon and cecum was performed. After dissection, defect of the large left groin was identified. The left indirect inguinal hernia sac was evaginated whereby the peritoneum was scored using Endo scissors with cautery. Once completely reduced into the abdominal cavity, the peritoneal sac of the hernia was stripped. The sac was resected and then passed off for further pathological analysis. The size of the hernia defect was 2 cm with intraoperative films obtained. As an onlay, a 10 x [address] mesh by [employer] was initially cut in half and entered into the abdominal cavity via the 12 mm trocar. The mesh was tacked to the pelvis using 2-0 VLOC nonabsorbable sutures. The robot was undocked from the patient's bedside. I then rescrubbed into the case. Insufflation was released from the abdominal cavity and all instruments were removed from the abdominal cavity. The rest of incisions were reapproximated using 4-0 Monocryl in a running subcuticular fashion. Incisions were cleansed using dilute hydrogen peroxide. Liquid glue was applied to the skin. At the end of the procedure, the needle, sponge and instrument counts had been verified correct by the surgical processor. The patient had tolerated the procedure well and was taken to the postanesthesia care unit in stable condition.
[2022-07-11] MEDS ORDERED: SODIUM CHLORIDE 0.9% 2,000 ML IV ONE (07:39)
[2022-07-11] MEDS ORDERED: HYDROmorphone 1 MG/ML 1 ML SYRINGE IVP PRN (07:40)
[2022-07-11] MEDS ORDERED: SODIUM CHLORIDE 0.9% 1,000 ML IV SCH (07:45)
[2022-07-11] MEDS: KETOROLAC 15 MG/ML 1 ML VIAL IVP SCH ×2 (08:25→12:25)
[2022-07-11] MEDS ORDERED: HEPARIN SODIUM,PORCINE/PF 5,000 UNIT/0.5 ML SYRINGE SQ SCH (09:00)
[2022-07-11 09:34] LABS: Basophils % (A) 0 %; Eosinophils % (A) 0 %; HCT 40.9 % (39.0-53.0); Lymphocytes # (A) 1.2 k/uL (1.0-4.8); Lymphocytes % (A) 9 %; MCH 28.1 pg (25.0-35.0); MCHC 31.9 g/dL (31.0-37.0); MCV 88.3 fL (80.0-100.0); Monocytes # (A) 0.6 k/uL (0-1.0); Monocytes % (A) 5 %; Neutrophils % (A) 85 %; Platelet Count 246 k/uL (150-450); RBC 4.64 m/uL (4.30-5.90); RDW 13.6 % (11.5-15.5)
--- NOTE | 2022-07-11 09:36 | P.PN ---
Progress Note - Text Progress Note Date: 07/11/22 Patient feels well. He elected to go home. On exam vital signs are stable. Abdomen soft. Incision sites are clean and intact. Status post repair of left incarcerated inguinal hernia. Patient be discharged home today. He will follow-up Dr. Cheatham next week.
[2022-07-11] MEDS: TAMSULOSIN 0.4 MG CAP.ER.24H PO SCH (09:40)
[2022-07-11 09:44] LABS: ALT 18 U/L (4-49); AST 22 U/L (17-59); African American GFR (CKD) >90 (>60 ml/min/1.73 sqM); Albumin 3.7 g/dL (3.5-5.0); Albumin/Globulin Ratio 1.4; Alkaline Phosphatase 55 U/L (38-126); Anion Gap 7 mmol/L; Blood Urea Nitrogen 16 mg/dL (9-20); Calcium 8.6 mg/dL (8.4-10.2); Carbon Dioxide 28 mmol/L (22-30); Chloride 103 mmol/L (98-107); Globulin 2.7 g/dL; Glucose 124 mg/dL (74-99); Non-African American GFR(CKD) >90 (>60 ml/min/1.73 sqM); Potassium 4.6 mmol/L (3.5-5.1); Sodium 138 mmol/L (137-145); Total Bilirubin 0.6 mg/dL (0.2-1.3); Total Protein 6.4 g/dL (6.3-8.2)
[2022-07-11 12:48] VITALS: BP 128/67; PULSE 72
--- NOTE | 2022-07-12 09:58 | P.ANPRN ---
Procedure Note - Anesthesia - Nerve Block Performed Bilateral Transversus Abdominis Single Time Out Performed: Yes Date of Procedure: 07/10/22 Procedure Start Time: 11:15 Procedure Stop Time: :21 Location of Patient: PreOp Indication: Acute Post-Operative Pain, Requested by Surgeon Sedation Type: Sedate with meaningful contact maintained Preparation: Sterile Prep Position: Supine Needle Types: Pajunk Needle Gauge: 21 Ultrasound used to visualize needle placement: Yes Ultrasound used to observe medication spread: Yes Blood Aspirated: No Pain Paresthesia on Injection Noted: No Resistance on Injection: Normal Image Stored and Saved: Yes Events: Uneventful and Well Tolerated (Ropivacaine 0.5% 20 mL plus dexamethasone 4 mg given bilaterally)
--- NOTE | 2022-07-12 12:38 | P.PN ---
Subjective Progress Note Date: 07/11/22 HISTORY OF PRESENT ILLNESS: This is a 62-year-old -[place] gentleman with a previous medical history significant for hypertension and hypertensive cardiovascular disease, hyperlipidemia, osteoarthritis, enlarged prostate, history of bilateral inguinal hernia repair that was done back in November [address] Cheung patient presented to the emergency department at [facility] today with a one- week history of increased left groin abdominal pain associated with movement and standing better with sitting and laying down, with minimal bulge at the left groin area that is tender to palpation, patient ended up going for computed tomography scan of the abdomen and pelvis with contrast that was done in the ER and that showed possible mild to moderate left inguinal hernia Jorden as symmet rohan to the one on the right side, therefore he was admitted under general surgery I was asked to see the patient for medical management he is scheduled tomorrow for robotic-assisted left and without hernia repair. 07/10: Patient is scheduled today for inguinal hernia repair with Dr. Cheung. He is currently nothing by mouth. No issues overnight. Blood pressure 119/73, heart rate in the 50s to 70s. Repeat blood work reveals WBC 5.2, hemoglobin 13.5, platelet count 263. Sodium 142, potassium 4.8, chloride 106, CO2 27, BUN 17 and creatinine 1.1. Anticipate probable discharge home later today. 07/11: Patient is laying down in bed in no apparent distress, he is passing gas, he did not have a problem with, he was a bit hypertensive in the morning, he did receive a liter of normal saline, his blood pressures better, patient is medically stable to be discharged home, nurse will contact general surgery for his discharge. REVIEW OF SYSTEMS: Constitutional: No documented fever, no chills, no night sweats. No weight change. No weakness, fatigue or lethargy. No daytime sleepiness. HEENT: No headache. No blurred vision or double vision, no loss of vision. No loss of Hearing, no ringing in the ears, no dizziness. No nasal drainage or congestion. No epistaxis. No sore throat. Lungs: No shortness of breath, no cough, no sputum production. No wheezing. Reports dyspnea with activity. Cardiovascular: No chest pain, no lower extremity edema. No palpitations. No paroxysmal nocturnal dyspnea. No orthopnea. No lightheadedness or dizziness. No syncopal episodes. Abdominal: Reports abdominal pain. No nausea, vomiting. No diarrhea. positive for constipation. No bloody or tarry stools reports loss of appetite. Genitourinary: No dysuria, increased frequency, urgency. No urinary retention. Musculoskeletal: No myalgias. No muscle weakness, no gait dysfunction, no freq uent falls. No back pain. No neck pain. Integumentary: No wounds, no lesions. No rash or pruritus. No unusual bruising. No change in hair or nails. Neurologic: No aphasia. No facial droop. No change in mentation. No head injury. No headache. No paralysis. No paresthesia. Psychiatric: No depression. No anxiety. No mood swings. Endocrine: No abnormal blood sugars. No weight change. PHYSICAL EXAMINATION: General: 62-year-old -[place] gentleman is laying down in bed in no apparent distress. HEENT: Head is atraumatic, normocephalic, pupils were equal round reactive to light and recommendation, extraocular muscle movement were intact, sclera nonicteric, conjunctivae were pale, mucous membranes of the mouth are somewhat dry. Neck: Supple, no JVP, normal carotid upstroke bilaterally, no lymphadenopathy. Chest: Decreased breath sounds at the bases, few rhonchi, no expiratory wheezes, no chest wall tenderness, no intercostal retractions. Heart: First heart sound is normal, second heart sounds normal there is no gallop or murmur. Abdomen: Soft, nontender, nondistended, positive bowel sounds. there is minimal bulge in the left groin area no rebound or guarding. Extremities: There is no edema no calf tenderness DP +2 bilaterally. Neurologic examination: Patient is awake alert and oriented x3 , cranial nerves II-12 appear grossly intact, muscle power were 5 out of 5 in upper extremities and 5 out of 5 in bilateral lower extremities, deep tendon reflexes normal bila terally. ASSESSMENT AND PLAN: 1. Postoperative day #1 status post robotic-assisted left inguinal hernia repair with lysis of adhesion and large bowel obstruction. Doing much better, surgical team will decide on his discharge. 2. Transient hypotension likely due to hypovolemia. Patient did receive 1 L of normal saline, his blood pressure currently 128/62, patient is been previously discharged home 3. Hypertension and hypertensive cardiovascular disease. Continue patient on amlodipine 10 mg once every day, continue lisinopril 20 mg once every day, monitor the patient's symptoms very closely 4. Hyperlipidemia. Continue patient on atorvastatin 40 mg orally once every day per 5. Enlarged prostate. Continue doxazosin 6 mg orally once every day. 6. DVT prophylaxis. Early ablation. 7. GI prophylaxis. Protonix 40 mg orally once every day. 8. Medically stable for discharge. Objective - Vital Signs Vital signs: Vital Signs Temp 98.0 F 07/11/22 06:55 Pulse 61 07/11/22 06:55 Resp 18 07/11/22 06:55 BP 96/67 07/11/22 06:55 Pulse Ox 98 07/11/22 06:55 FiO2 Intake & Output 07/10/22 07/11/22 07/11/22 18:59 06:59 18:59 Intake Total 1750 118 Output Total 5 550 Balance 1745 -550 118 Intake: IV 1750 Oral 118 Output: Urine 550 Estimated Blood Loss 5 Other: Voiding Method Urinal # Voids 2 - Labs CBC & Chem 7: 07/11/22 08:47 07/11/22 08:47 Labs: Abnormal Lab Results - Last 24 Hours (Table) 07/10/22 07/10/22 Range/Units 06:44 06:44 MCHC 30.6 L (32.0-37.0) g/dL Carbon Dioxide 27.7 H (20.0-27.5) mmol/L Anion Gap 8.30 L (10.00-18.00) mmol/L
== END 2022-07-11 13:48 | disposition home or self-care (01) ==
LOC: EC 07:00 → INTOOBSV 10:36 → OBSVTOIN 10:36 → 6NMEDSUR 10:36 → UNDODISIN 07-11 13:48 → UNDODISOB 07-11 13:48
PROVIDERS: ADMIT Surgery Plastic and Reconstructive Surgery; ATTEND Surgery Plastic and Reconstructive Surgery
DX: K40.31 Unilateral inguinal hernia, with obstruction, without gangrene, recurrent (principal); K66.0 Peritoneal adhesions (postprocedural) (postinfection); T83.718A Erosion of other implanted mesh to organ or tissue, initial encounter; Y81.3 Surgical instruments, materials and general- and plastic-surgery devices (including sutures) associated with adverse incidents; I95.89 Other hypotension; G89.18 Other acute postprocedural pain; E78.5 Hyperlipidemia, unspecified; R73.03 Prediabetes; N40.0 Benign prostatic hyperplasia without lower urinary tract symptoms; I11.9 Hypertensive heart disease without heart failure; M10.9 Gout, unspecified; I71.40 Abdominal aortic aneurysm, without rupture, unspecified; Z85.46 Personal history of malignant neoplasm of prostate; Z87.11 Personal history of peptic ulcer disease; Z87.891 Personal history of nicotine dependence; Z92.3 Personal history of irradiation; Z79.899 Other long term (current) drug therapy
CPT/HCPCS: 49651; S2900; 36415; 64488; 74177; 80048; 80053; 81003; 83605; 83690; 85025; 96374; 99285

== ENCOUNTER 2022-07-21 07:41 | Emergency (ER) | payer BC ==
[2022-07-21 07:49] VITALS: TEMP 98.1
--- NOTE | 2022-07-21 08:10 | ED ---
General Adult HPI - General Chief complaint: Abdominal Pain Stated complaint: Abd pain Time Seen by Provider: 07/21/22 07:43 Source: patient Mode of arrival: ambulatory Limitations: no limitations - History of Present Illness Initial comments: Dictation was produced using [employer] dictation software. please excuse any grammatical, word or spelling errors. Chief Complaint: 62-year-old male presents to the emergency department for surgi [place] incisional site pain History of Present Illness: Patient is a [id number] male he had robotic hernia repair performed by Dr. Cheatham 11 days ago. Patient states that after the procedure he started noticing some pain develop that his right abdominal incision site. Over the last 48 hours states that the pain has been worse and that it seems like that area of pain is getting bigger. Denies any other abdominal pain. No fever or constitutional symptoms. No nausea vomiting. No diarrhea The ROS documented in this emergency department record has been reviewed and confirmed by me. Those systems with pertinent positive or negative responses have been documented in the HPI. All other systems are other negative and/or noncontributory. - Related Data Home Medications Medication Instructions Recorded Confirmed Doxazosin [Cardura] 4 mg PO DAILY@0300 03/21/19 07/09/22 amLODIPine [Norvasc] 10 mg PO DAILY@0300 03/21/19 07/09/22 lisinopriL [Zestril] 20 mg PO HS@1800 03/15/21 07/09/22 Atorvastatin [Lipitor] 20 mg PO HS@1800 07/09/22 07/09/22 Doxazosin [Cardura] 2 mg PO DAILY@0300 07/09/22 07/09/22 HYDROcodone/APAP 10-325MG [[place] 1 tab PO Q8H PRN 07/09/22 07/09/22 10-325] Previous Rx's Medication Instructions Recorded Cyclobenzaprine [Flexeril] 10 mg PO TID #30 tab 07/11/22 Ibuprofen [Motrin] 600 mg PO Q8HR PRN #30 tab 07/11/22 Tamsulosin [Flomax] 0.4 mg PO DAILY #5 cap 07/11/22 Allergies Allergy/AdvReac Type Severity Reaction Status Date / Time No Known Allergies Allergy Verified 07/21/22 07:48 Review of Systems ROS Statement: Those systems with pertinent positive or pertinent negative responses have been documented in the HPI. ROS Other: All systems not noted in ROS Statement are negative. Past Medical History Past Medical History: Cancer, Hyperlipidemia, Hypertension, Osteoarthritis (OA) Additional Past Medical History / Comment(s): AAA., gout., DDD., prostate cancer with radiation tx. , pre-diabetic., BPH. , left inguinal hernia., states "lump" by his ankle that hes had for years. History of Any Multi-Drug Resistant Organisms: None Reported Past Surgical History: Appendectomy, Back Surgery, Hernia Repair Additional Past Surgical History / Comment(s): hand surgery, Past Anesthesia/Blood Transfusion Reactions: No Reported Reaction Past Psychological History: No Psychological Hx Reported Smoking Status: Former smoker Past Alcohol Use History: Daily Past Drug Use History: None Reported General Exam - General Exam Comments Initial Comments: PHYSICAL EXAM: General Impression: Alert and oriented x3, not in acute distress HEENT: Normocephalic atraumatic, extra-ocular movements intact, pupils equal and reactive to light bilaterally, mucous membranes moist. Cardiovascular: Heart regular rate and rhythm Chest: Able to complete full sentences, no retractions, no tachypnea Abdomen: abdomen soft, mild tenderness over the right abdominal incisional site, no drainage, not erythematous, mildly indurated, nonfluctuant non-distended, no organomegaly Musculoskeletal: Pulses present and equal in all extremities, no peripheral edema Motor: no focal deficits noted Neurological: CN II-XII grossly intact, no focal motor or sensory deficits noted Skin: Intact with no visualized rashes Psych: Normal affect and mood Limitations: no limitations Course Vital Signs 07/21/22 07/21/22 07:47 08:48 Temperature 98.1 F Pulse Rate 76 90 Respiratory 20 18 Rate Blood Pressure 117/78 119/81 O2 Sat by Pulse 99 100 Oximetry Medical Decision Making - Medical Decision Making Was pt. sent in by a medical professional or institution (, PA, TRAFFIC POLICE OFFICER, urgent care, hospital, or fdc...) When possible be specific @ -No Did you speak to anyone other than the patient for history (EMS, parent, family, police, friend...)? What history was obtained from this source @ -No Did you review nursing and triage notes (agree or disagree)? Why? @ -I reviewed and agree with nursing and triage notes Were old charts reviewed (outside hosp., previous admission, EMS record, old EKG, old radiological studies, urgent care reports/EKG's, fdc records)? Report findings @ -Old charts reviewed including operative note showing that patient has had robotic hernia surgery Differential Diagnosis (chest pain, altered mental status, abdominal pain women, abdominal pain men, vaginal bleeding, musculoskeletal, weakness, fever, dyspnea, syncope, headache, dizziness, GI bleed, back pain, seizure, CVA, palpa tations, mental health)? @ -Differential Abdominal Pain Men: Appendicitis, cholecystitis, diverticulosis, ischemic bowel, pancreatitis, hepatitis, UTI, gastroenteritis, AAA, incarcerated hernia, bowel obstruction, constipation, inflammatory bowel, hepatitis, peptic ulcer disease, splenic infarction, perforated viscus, testicular torsion, this is not meant to be an all-inclusive list EKG interpreted by me (3pts min.). @ -None done X-rays interpreted by me (1pt min.). @ -None done CT interpreted by me (1pt min.). @ -Minimal Inflammatory changes at the right abdomen U/S interpreted by me (1pt. min.). @ -None done What testing was considered but not performed or refused? (CT, X-rays, U/S, labs)? Why? @ -None What meds were considered but not given or refused? Why? @ -None Did you discuss the management of the patient with other professionals (professionals i.e. , PA, TRAFFIC POLICE OFFICER, lab, RT, psych nurse, social media content manager, order tracer, teacher, general service officer, ed case manager)? Give summary @ -Discussed in detail with primary surgeon, Dr. Cheatham who reviewed the images and labs. She suggested that patient does not need to be in antibiotics that he should just be sure to to ice the area where his abdominal binder Was smoking cessation discussed for >3mins.? @ -No Was critical care preformed (if so, how long)? @ -No Were there social determinants of health that impacted care today? How? (Homelessness, low income, unemployed, alcoholism, drug addiction, transportation, low edu. Level, literacy, decrease access to med. care, residential, rehab)? @ -No Was there de-escalation of care discussed even if they declined (Discuss DNR or withdrawal of care, Hospice)? DNR status @ -No What co-morbidities impacted this encounter? (DM, HTN, Smoking, COPD, CAD, Cancer, CVA, ARF, Chemo, Hep., AIDS, mental health diagnosis, sleep apnea, morbid obesity)? @ -None Was patient admitted / discharged? Hospital course, mention meds given and route, prescriptions, significant lab abnormalities, going to OR and other pertinent info. @ -62 Year-old male presents emergency department for surgical site pain. Clinical examination is benign. Case was discussed with general surgeon see above for further detail. Patient discharged. Undiagnosed new problem with uncertain prognosis? @ -No Drug Therapy requiring intensive monitoring for toxicity (Heparin, Nitro, Insulin, Cardizem)? @ -No Were any procedures done? @ -No Diagnosis/symptom? Acute, or Chronic, or Acute on Chronic? Uncomplicated (without systemic symptoms) or Complicated (systemic symptoms)? @ -1. Postoperative pain Side effects of treatment? @ -No Exacerbation, Progression, or Severe Exacerbation? @ -No Poses a threat to life or bodily function? How? (Chest pain, [place], [place], pneumonia, PE, COPD, DKA, ARF, appy, cholecystitis, CVA, Diverticulitis, Homicidal, Suicidal, threat to staff... and all critical care pts) @ -No - Lab Data Result diagrams: 07/21/22 08:04 07/21/22 08:04 Lab Results 07/21/22 07/21/22 Range/Units 08:04 08:04 WBC 5.2 (3.8-10.6) k/uL RBC 5.04 (4.30-5.90) m/uL Hgb 14.1 (13.0-17.5) gm/dL Hct 43.8 (39.0-53.0) % MCV 86.9 (80.0-100.0) fL MCH 28.0 (25.0-35.0) pg MCHC 32.2 (31.0-37.0) g/dL RDW 13.3 (11.5-15.5) % Plt Count 274 (150-450) k/uL MPV 7.6 Neutrophils % 59 % Lymphocytes % 30 % Monocytes % 5 % Eosinophils % 4 % Basophils % 0 % Neutrophils # 3.1 (1.3-7.7) k/uL Lymphocytes # 1.5 (1.0-4.8) k/uL Monocytes # 0.2 (0-1.0) k/uL Eosinophils # 0.2 (0-0.7) k/uL Basophils # 0.0 (0-0.2) k/uL Sodium 141 (137-145) mmol/L Potassium 4.1 (3.5-5.1) mmol/L Chloride 105 (98-107) mmol/L Carbon Dioxide 29 (22-30) mmol/L Anion Gap 7 mmol/L BUN 15 (9-20) mg/dL Creatinine 0.93 (0.66-1.25) mg/dL Est GFR (CKD-EPI)AfAm >90 (>60 ml/min/1.73 sqM) Est GFR (CKD-EPI)NonAf 89 (>60 ml/min/1.73 sqM) Glucose 69 L (74-99) mg/dL Calcium 9.4 (8.4-10.2) mg/dL Total Bilirubin 0.6 (0.2-1.3) mg/dL AST 24 (17-59) U/L ALT 20 (4-49) U/L Alkaline Phosphatase 52 (38-126) U/L Total Protein 7.3 (6.3-8.2) g/dL Albumin 4.3 (3.5-5.0) g/dL Disposition Clinical Impression: Post-operative pain Disposition: HOME SELF-CARE Condition: Good Is patient prescribed a controlled substance at d/c from ED?: No Referrals: Kervin Roberts MD [Primary Care Provider] - 1-2 days Time of Disposition: 09:59
[2022-07-21 08:20] LABS: Basophils % (A) 0 %; Eosinophils # (A) 0.2 k/uL (0-0.7); Eosinophils % (A) 4 %; HCT 43.8 % (39.0-53.0); HGB 14.1 gm/dL (13.0-17.5); Lymphocytes # (A) 1.5 k/uL (1.0-4.8); Lymphocytes % (A) 30 %; MCHC 32.2 g/dL (31.0-37.0); MCV 86.9 fL (80.0-100.0); Mean Platelet Volume 7.6; Monocytes # (A) 0.2 k/uL (0-1.0); Monocytes % (A) 5 %; Neutrophils # (A) 3.1 k/uL (1.3-7.7); Neutrophils % (A) 59 %; Platelet Count 274 k/uL (150-450); RBC 5.04 m/uL (4.30-5.90); RDW 13.3 % (11.5-15.5); WBC 5.2 k/uL (3.8-10.6)
[2022-07-21 08:31] LABS: ALT 20 U/L (4-49); AST 24 U/L (17-59); African American GFR (CKD) >90 (>60 ml/min/1.73 sqM); Albumin 4.3 g/dL (3.5-5.0); Alkaline Phosphatase 52 U/L (38-126); Anion Gap 7 mmol/L; Blood Urea Nitrogen 15 mg/dL (9-20); Calcium 9.4 mg/dL (8.4-10.2); Carbon Dioxide 29 mmol/L (22-30); Chloride 105 mmol/L (98-107); Glucose 69 mg/dL (74-99); Non-African American GFR(CKD) 89 (>60 ml/min/1.73 sqM); Potassium 4.1 mmol/L (3.5-5.1); Sodium 141 mmol/L (137-145); Total Bilirubin 0.6 mg/dL (0.2-1.3); Total Protein 7.3 g/dL (6.3-8.2)
[2022-07-21 09:19] VITALS: RESP 18
--- NOTE | 2022-07-21 09:37 | CT ---
EXAMINATION TYPE: CT abdomen pelvis w con CT DLP: 1483.8 mGycm, Automated exposure control for dose reduction was used. DATE OF EXAM: 07/21/2022 9:13 AM COMPARISON: CT abdomen pelvis most recent from 07/09/2022 CLINICAL INDICATION:Male, 62 years old with history of post operative pain, pain at R lateral incisio n; Post operative pain TECHNIQUE: Axial CT of the abdomen and pelvis. Sagittal and coronal reformats were created on a [employer] workstation. Contrast used:100 ml mL of Isovue 300 with IV Contrast, Oral contrast used: without Oral Contrast FINDINGS: LOWER CHEST: Unremarkable ABDOMEN LIVER: Unremarkable GALLBLADDER AND BILE DUCTS: Unremarkable. PANCREAS: Unremarkable. SPLEEN: Unremarkable. ADRENAL GLANDS: Unremarkable. KIDNEYS AND URETERS: No evidence of hydronephrosis or renal calculus. The ureters are unremarkable. PELVIS BLADDER: Unremarkable REPRODUCTIVE: Small bilateral hydroceles. ABDOMEN & PELVIS STOMACH AND BOWEL: No evidence of bowel obstruction. PERITONEUM/RETROPERITONEUM: No evidence of pneumoperitoneum or free fluid. VASCULATURE: No evidence of aortic aneurysm. Atherosclerosis of the arterial vasculature. MUSCULOSKELETAL: No acute osseous abnormalities LYMPH NODES: No gross evidence for lymphadenopathy. SOFT TISSUE/ABDOMINAL WALL: Right lateral posterior abdominal wall intramuscular lipoma measuring 3.5 x 2.0 cm. There is fat stranding changes in the abdominal wall in the anterior right abdomen. No def initive organizing fluid collection at the sites the ports visualized. Small fat-containing umbilical hernia. Left fat-containing inguinal hernia. There may be a small right fat-containing inguinal travis ia also present. IMPRESSION: 1. Inflammation changes along the right abdominal wall without organizing fluid collection at this t kam. Correlate for cellulitis. 2. No evidence for acute abdominal process. 3. Fat-containing left inguinal hernia possible small right fat-containing inguinal hernia. 4. New line right posterior intramuscular lipoma. 5. Small bilateral hydroceles.
[2022-07-21 10:10] VITALS: BP 136/78; PULSE 80
== END 2022-07-21 10:14 | disposition home or self-care (01) ==
LOC: EC 07:41
DX: G89.18 Other acute postprocedural pain (principal); K40.90 Unilateral inguinal hernia, without obstruction or gangrene, not specified as recurrent; N43.3 Hydrocele, unspecified; I10 Essential (primary) hypertension; E78.5 Hyperlipidemia, unspecified; M19.90 Unspecified osteoarthritis, unspecified site; Z79.899 Other long term (current) drug therapy; Z87.891 Personal history of nicotine dependence
CPT/HCPCS: 36415; 80053; 85025; 74177; 99284; Q9967

== ENCOUNTER 2022-08-05 07:20 | Day surgery (SDC) | payer BC ==
[2022-07-24 14:32] VITALS: BMI 32.5
[~2022-08-05 07:20] MED LIST changes: -DEXAMETHASONE SOD PHOSPHATE 4 MG/ML 1 ML VIAL IV ONE; -HEPARIN SODIUM,PORCINE/PF 5,000 UNIT/0.5 ML SYRINGE SQ PRN; -HYDROmorphone 0.5 MG/0.5 ML SYRINGE IVP PRN; -ONDANSETRON 4 MG/2 ML VIAL IVP ONE; +ONDANSETRON 4 MG/2 ML VIAL IVP PRN
[2022-08-05] MEDS ORDERED: LIDOCAINE 2% INJ 20 MG/ML (2 ML VIAL) ONE (08:02)
[2022-08-05] MEDS ORDERED: PROPOFOL 10 MG/ML 20 ML VIAL IV ONE (08:02)
[2022-08-05 08:03] VITALS: TEMP 97.9
[2022-08-05 08:06] LABS: Glucose,Whole Blood 93 mg/dL (70-110)
--- NOTE | 2022-08-05 08:32 | P.GSHP ---
History of Present Illness H&P Date: 08/05/22 CHIEF COMPLAINT: Colon screen HISTORY OF PRESENT ILLNESS: The patient is a 62-year-old male who presents for colon screen. Lower endoscopy was offered for further evaluation and management. PAST MEDICAL HISTORY: Please see list. PAST SURGICAL HISTORY: Please see list. MEDICATIONS: Please see list. ALLERGIES: Please see list. SOCIAL HISTORY: No illicit drug use FAMILY HISTORY: No reports of Crohn disease or ulcerative colitis. REVIEW OF ORGAN SYSTEMS: CONSTITUTIONAL: No reports of fevers or chills. PHYSICAL EXAM: VITAL SIGNS: Stable GENERAL: Well-developed pleasant in no acute distress. HEENT: No scleral icterus. Extraocular movements grossly intact. Moist buccal mucosa. NECK: Supple without lymphadenopathy. CHEST: Unlabored respirations. Equal bilateral excursions. CARDIOVASCULAR: Regular rate and rhythm. Distal 2+ pulses. ABDOMEN: Soft, nontender, nondistended. MUSCULOSKELETAL: No clubbing, cyanosis, or edema. ASSESSMENT: 1. Colon screen. PLAN: 1. Recommend proceeding with a lower endoscopy Past Medical History Past Medical History: Cancer, Hyperlipidemia, Hypertension, Osteoarthritis (OA) Additional Past Medical History / Comment(s): AAA., gout., DDD., prostate cancer with radiation tx. , pre-diabetic., BPH. , , states "lump" by his ankle that hes had for years. History of Any Multi-Drug Resistant Organisms: None Reported Past Surgical History: Appendectomy, Back Surgery, Hernia Repair, Orthopedic Surgery Additional Past Surgical History / Comment(s): BILAT hand surgery hernia surgery july 1001/2023. COLONOSCOPY, egd Past Anesthesia/Blood Transfusion Reactions: No Reported Reaction Past Psychological History: No Psychological Hx Reported Smoking Status: Former smoker Past Alcohol Use History: Daily Additional Past Alcohol Use History / Comment(s): quit smoking 2 years ago (2019), smoked 1/4 ppd, started smoking age 19. drinks daily -beer or yordan- usually a couple a day Past Drug Use History: None Reported - Past Family History Mother Family Medical History: No Reported History Medications and Allergies Home Medications Medication Instructions Recorded Confirmed Type Doxazosin [Cardura] 4 mg PO DAILY@0300 03/21/19 08/04/22 History amLODIPine [Norvasc] 10 mg PO DAILY@03003/21/19 08/04/22 History lisinopriL [Zestril] 20 mg PO HS@1800 01/15/22 06/06/23 History Atorvastatin [Lipitor] 20 mg PO HS@1800 07/09/22 08/04/22 History Doxazosin [Cardura] 2 mg PO DAILY@0300 07/09/22 08/04/22 History Ibuprofen [Motrin] 600 mg PO Q8HR PRN #30 tab 07/11/22 08/04/22 Rx Allergies Allergy/AdvReac Type Severity Reaction Status Date / Time No Known Allergies Allergy Verified 08/04/22 08:54 Surgical - Exam Vital Signs Temp Pulse Resp BP Pulse Ox 97.9 F 82 20 126/77 96 08/05/22 07:55 08/05/22 07:55 08/05/22 07:55 08/05/22 07:55 08/05/22 07:55
[2022-08-05 08:40] VITALS: RESP 16
[2022-08-05 08:55] VITALS: BP 110/76; PULSE 75
--- NOTE | 2022-08-05 09:11 | P.PCN ---
Date of Procedure: 08/05/22 Description of Procedure: PREOPERATIVE DIAGNOSIS: Colonoscopy screening. Personal history colon polyps POSTOPERATIVE DIAGNOSIS: Colonoscopy screening. Diverticulosis at cecum Hyperplastic sigmoid colon polyp OPERATION: Colonoscopy to the cecum, ileocecal valve and appendiceal orifice. SURGEON: Melissa Cheung MD. ANESTHESIA: MAC. INDICATIONS: The patient is a 62-year-old male who presents for colonoscopy screening. last colonoscopy 5 years. Benefits and risks were described and informed consent was obtained. DESCRIPTION OF PROCEDURE: The patient had undergone Sutab prep. The patient had been brought into the operating room and laid in the left lateral decubitus position. After adequate intravenous sedation, the rectum was examined with 2% lidocaine jelly. The prostate fossa was unremarkable. No external hemorrhoids were encountered. The rectal tone was within normal limits. No lesions were palpated in the rectal vault. An Olympus colonoscope was advanced until the cecum, ileocecal valve and appendiceal orifice were clearly viewed. The prep was excellent. Cecal diverticulosis was encountered. Hyperplastic colonic polyps were found. No evidence of focal colitis was found. Retroflexion of the scope demonstrated grade 1 internal hemorrhoids without active bleeding or inflammation. The colon was desufflated. The patient had tolerated the procedure well. Withdrawal time was over 6 minutes. FINDINGS: Aronchick preparation quality scale 1 (1-5) Internal hemorrhoids, grade 1 No external prolapsed hemorrhoids. No arteriovenous malformations. Hyperplastic colon polyp sigmoid colon No focal colitis. Cecal diverticulosis 1 RECOMMENDATIONS: Lower endoscopy in 3 years, 2025 Plan - Discharge Summary Discharge Rx Participant: No New Discharge Prescriptions: Continue amLODIPine [Norvasc] 10 mg PO DAILY@0300 Doxazosin [Cardura] 4 mg PO DAILY@0300 Atorvastatin [Lipitor] 20 mg PO HS@1800 Ibuprofen [Motrin] 600 mg PO Q8HR PRN #30 tab PRN Reason: Pain lisinopriL [Zestril] 20 mg PO HS@1800 Doxazosin [Cardura] 2 mg PO DAILY@0300 Discharge Medication List Doxazosin [Cardura] 4 mg PO DAILY@0300 03/21/19 [History] amLODIPine [Norvasc] 10 mg PO DAILY@0300 03/21/19 [History] lisinopriL [Zestril] 20 mg PO HS@1800 03/15/21 [History] Atorvastatin [Lipitor] 20 mg PO HS@1800 07/09/22 [History] Doxazosin [Cardura] 2 mg PO DAILY@0300 07/09/22 [History] Ibuprofen [Motrin] 600 mg PO Q8HR PRN #30 tab 07/11/22 [Rx] Follow up Appointment(s)/Referral(s): Melissa Cheung MD [STAFF PHYSICIAN] - 08/11/22 4:45 pm (TELEHEALTH) Patient Instructions/Handouts: *Surgery [facility] - (Anesthesia) Discharge Instructions Outpatient Surgery, Colorectal Polyps (GEN), Diverticulitis Diet (ED), Diverticulosis Diet (GEN) Activity/Diet/Wound Care/Special Instructions: Colonoscopy in 3 years, 2025 Discharge Disposition: HOME SELF-CARE
== END 2022-08-05 09:37 | disposition home or self-care (01) ==
LOC: ORWHC2ENDO 07:20
PROVIDERS: ATTEND Surgery Plastic and Reconstructive Surgery
DX: Z12.11 Encounter for screening for malignant neoplasm of colon (principal); K57.30 Diverticulosis of large intestine without perforation or abscess without bleeding; K64.0 First degree hemorrhoids; K63.5 Polyp of colon; E78.5 Hyperlipidemia, unspecified; I10 Essential (primary) hypertension; M19.90 Unspecified osteoarthritis, unspecified site; I71.40 Abdominal aortic aneurysm, without rupture, unspecified; M10.9 Gout, unspecified; M50.30 Other cervical disc degeneration, unspecified cervical region; N40.0 Benign prostatic hyperplasia without lower urinary tract symptoms; F10.90 Alcohol use, unspecified, uncomplicated; Z86.010 Personal history of colon polyps; Z85.46 Personal history of malignant neoplasm of prostate; Z90.49 Acquired absence of other specified parts of digestive tract; Z98.890 Other specified postprocedural states; Z87.891 Personal history of nicotine dependence; Z79.899 Other long term (current) drug therapy
CPT/HCPCS: 45378; J2704; J2001

== ENCOUNTER 2022-08-13 10:45 | Day surgery (SDC) | payer BC ==
[2022-08-11 09:56] VITALS: BMI 32.6
[~2022-08-13 10:45] MED LIST changes: +ACETAMINOPHEN TAB 500 MG TAB PO PRN; +HEPARIN SODIUM,PORCINE/PF 5,000 UNIT/0.5 ML SYRINGE SQ PRN; -LIDOCAINE 1% (10MG/ML) FOR IV START INTRADERMA PRN; -ONDANSETRON 4 MG/2 ML VIAL IVP PRN
[2022-08-13] MEDS ORDERED: LACTATED RINGERS 1,000 ML IV ONE ×2 (10:57→12:46)
--- NOTE | 2022-08-13 11:02 | P.GSHP ---
History of Present Illness H&P Date: 08/13/22 CHIEF COMPLAINT: Right upper quadrant abdominal mass HISTORY OF PRESENT ILLNESS: The patient is a 62 year-old male with history of mass along the abdomen. He reports moderate pain and discomfort from his right upper quadrant abdominal mass for over 3 weeks. He presents today for surgical excision. PAST MEDICAL HISTORY: Please see list. PAST SURGICAL HISTORY: Please see list. MEDICATIONS: Please see list. ALLERGIES: Please see list. SOCIAL HISTORY: No illicit drug use FAMILY HISTORY: No reports of Crohn disease or ulcerative colitis. REVIEW OF ORGAN SYSTEMS: CONSTITUTIONAL: No reports of fevers or chills. GI: Denies any blood in stools or constipation. PHYSICAL EXAM: VITAL SIGNS: Stable SKIN: Well perfused. Good skin turgor. Mass 5 cm long right lower abdomen Musculoskeletal: No clubbing cyanosis or edema GENERAL: Well developed and in no acute distress. Pleasant. HEENT: No sclera icterus. Extraocular movements grossly intact. Moist buccal mucosa. Head is atraumatic, normocephalic. Hears conversational speech. No nasal drainage. NECK: Supple without lymphadenopathy. No JV distention. CHEST: Non-labored respirations and equal bilateral excursions. CARDIOVASCULAR: Regular rate and rhythm. Palpable 2+ radial pulses. ABDOMEN: Soft. Non-tender. Nondistended. 3 cm along right upper quadrant, painful. NEUROLOGIC: No focal or lateralizing signs. PSYCH: Appropriate affect. Alert and oriented to person, place and time. ASSESSMENT: 1. Mass along right upper abdomen PLAN: 1. Will proceed of excision of subcutaneous tumor along the abdomen 2. DVT prophylaxis. 3. Antibiotic prophylaxis. 4. Time of recovery, at least one week. Past Medical History Past Medical History: Cancer, Hyperlipidemia, Hypertension, Osteoarthritis (OA) Additional Past Medical History / Comment(s): AAA, gout, DDD, hx prostate cancer with radiation treatment, Pre-Diabetic, BPH, states "lump" by his ankle that he's had for years. History of Any Multi-Drug Resistant Organisms: None Reported Past Surgical History: Appendectomy, Back Surgery, Hernia Repair, Orthopedic Surgery Additional Past Surgical History / Comment(s): Bilateral hand surgery, colonoscopy, EGD. Past Anesthesia/Blood Transfusion Reactions: No Reported Reaction Past Psychological History: No Psychological Hx Reported Smoking Status: Former smoker Past Alcohol Use History: Daily Additional Past Alcohol Use History / Comment(s): Quit smoking in 2019, smoked 1/4 ppd, started smoking age 19. Drinks daily -beer or yordan- usually a couple a day. Past Drug Use History: None Reported - Past Family History Father Family Medical History: No Reported History Medications and Allergies Home Medications Medication Instructions Recorded Confirmed Type Doxazosin [Cardura] 4 mg PO DAILY@0300 03/21/19 08/13/22 History amLODIPine [Norvasc] 10 mg PO DAILY@29903/21/19 08/13/22 History lisinopriL [Zestril] 20 mg PO HS@1800 03/15/21 08/13/22 History Atorvastatin [Lipitor] 20 mg PO HS@1800 07/09/22 08/13/22 History Doxazosin [Cardura] 2 mg PO DAILY@29907/09/22 08/13/22 History Ibuprofen [Motrin] 600 mg PO Q8HR PRN #30 tab 07/11/22 08/13/22 Rx Allergies Allergy/AdvReac Type Severity Reaction Status Date / Time No Known Allergies Allergy Verified 08/13/22 10:58
[2022-08-13] MEDS ORDERED: ONDANSETRON 4 MG/2 ML VIAL ONE (11:07)
[2022-08-13 11:25] LABS: Glucose,Whole Blood 113 mg/dL (70-110)
[2022-08-13] MEDS ORDERED: DEXAMETHASONE SOD PHOSPHATE 4 MG/ML 1 ML VIAL IVP ONE (11:33)
[2022-08-13] MEDS ORDERED: MIDAZOLAM 2 MG/2 ML VIAL IVP ONE (11:42)
[2022-08-13] MEDS ORDERED: MIDAZOLAM 2 MG/2 ML VIAL ONE (12:10)
[2022-08-13] MEDS ORDERED: fentaNYL (PF) 50 MCG/ML 2 ML AMP ONE (12:10)
[2022-08-13] MEDS ORDERED: SUCCINYLCHOLINE CHLORIDE 200 MG/10 ML VIAL IV ONE (12:10)
[2022-08-13] MEDS ORDERED: NEOSTIGMINE 1 MG/ML 10 ML VIAL ONE (12:10)
[2022-08-13] MEDS ORDERED: GLYCOPYRROLATE 0.2 MG/ML 2 ML VIAL ONE (12:10)
[2022-08-13] MEDS ORDERED: ROCURONIUM 10 MG/ML (5 ML VIAL) IV ONE (12:10)
[2022-08-13] MEDS ORDERED: LIDOCAINE 2% INJ 20 MG/ML (2 ML VIAL) ONE (12:10)
[2022-08-13] MEDS ORDERED: PROPOFOL 10 MG/ML 20 ML VIAL IV ONE (12:10)
[2022-08-13] MEDS ORDERED: BUPIVACAINE (PF) 0.25% 30 ML VIAL SQ ONE ×2 (12:30→12:55)
[2022-08-13 13:24] VITALS: TEMP 97.1
[2022-08-13] MEDS ORDERED: HYDROmorphone 0.5 MG/0.5 ML SYRINGE IVP ONE ×3 (13:37→14:12)
[2022-08-13 14:44] LABS: Glucose,Whole Blood 91 mg/dL (70-110)
[2022-08-13 14:49] VITALS: RESP 18
[2022-08-13 15:04] VITALS: BP 112/75; PULSE 78
--- NOTE | 2022-08-13 20:10 | P.PN ---
Progress Note - Text Progress Note Date: 08/13/22 Kayla noted on his record was notified regarding patient's doing well and findings during surgery.
--- NOTE | 2022-08-13 20:16 | P.OP ---
Date of Procedure: 08/13/22 Description of Procedure: SURGEON: MELISSA CHEUNG MD CUSHION WORKER: NONE. PREOPERATIVE DIAGNOSES: 1. Right upper abdominal wall/right chest wall mass 2. Hypertensive heart disease 3. Obesity due to excess calories, BMI 33.2 4. Alcohol use disorder 5. Gout POSTOPERATIVE DIAGNOSES: 1. Right upper abdominal wall/right chest wall mass 2. Hypertensive heart disease 3. Obesity due to excess calories, BMI 33.2 4. Alcohol use disorder 5. Gout OPERATION: 1. Excision of right upper quadrant abdominal wall subfascial/intramuscular tumor 5 x 3 cm 2. Intermediate closure of right upper quadrant abdominal incision, 6 cm. ANESTHESIA: GETA and local ESTIMATED BLOOD LOSS: 20 mL. SPECIMENS REMOVED: Abdominal wall mass, removed in piecemeal COMPLICATIONS: None. FINDINGS: 1. Abdominal wall mass involving fascia and intramuscular with granuloma, 5 x 3 cm removed in piecemeal INDICATIONS: The patient is a 62-year-old male who presents with right upper quadrant pain including increased abdominal wall tenderness and swelling of a firm mass. Surgical options, including excision was discussed. Benefits and risks were described. Informed consent was obtained. DESCRIPTION OF PROCEDURE: In the pre-operative area, the mass was palpated and marked with indelible marker. Patient was brought into the operating room, laid in supine position. After general induction, the abdomen was prepped and draped in standard sterile fashion using ChloraPrep. A timeout protocol was confirmed with the surgical team regarding patient's name including procedures to be performed. Preoperative medications was administered. A soft tissue skin flap was developed after injecting with local. Using #15 blade a 6-cm incision was made into the deep subcutaneous tissues to the fascia. Using Allis clamps, the abdominal mass was palpated and dissected circumferentially using Bovie cautery and found in the depth of the fascia including intramuscular. The mass was excised to the level of the muscle with granuloma identified. Hemostasis was checked with electro-Bovie cautery. The specimen was removed in piecemeal and passed off, 5 cm x 3 cm. The wound pocket was irrigated with dilute hydrogen peroxide. Next the wound was closed in layers using 0-Vicryl for the fascia and subcutaneous tissue in an interrupted fashion. The skin was cleansed. For the dermis, 4-0 Monocryl was placed along the length of the incision. Exofin tape was applied over the incision and with Optifoam. At the end of the procedure, needle, sponge, and instrument count had been verified correct by the surgical resident. The patient was taken to the postanesthesia care unit in stable condition. Plan - Discharge Summary Discharge Rx Participant: Yes New Discharge Prescriptions: New Acetaminophen Tab [Tylenol Tab] 1,000 mg PO Q6HR PRN #30 tablet PRN Reason: Pain Continue amLODIPine [Norvasc] 10 mg PO DAILY@0300 Doxazosin [Cardura] 4 mg PO DAILY@0300 Atorvastatin [Lipitor] 20 mg PO HS@1800 Ibuprofen [Motrin] 600 mg PO Q8HR PRN #30 tab PRN Reason: Pain lisinopriL [Zestril] 20 mg PO HS@1800 Doxazosin [Cardura] 2 mg PO DAILY@0300 Discharge Medication List Doxazosin [Cardura] 4 mg PO DAILY@0300 03/21/19 [History] amLODIPine [Norvasc] 10 mg PO DAILY@0300 03/21/19 [History] lisinopriL [Zestril] 20 mg PO HS@1800 03/15/21 [History] Atorvastatin [Lipitor] 20 mg PO HS@1800 07/09/22 [History] Doxazosin [Cardura] 2 mg PO DAILY@0300 07/09/22 [History] Ibuprofen [Motrin] 600 mg PO Q8HR PRN #30 tab 07/11/22 [Rx] Acetaminophen Tab [Tylenol Tab] 1,000 mg PO Q6HR PRN #30 tablet 08/13/22 [Rx] Follow up Appointment(s)/Referral(s): Melissa Cheung MD [STAFF PHYSICIAN] - 08/18/22 4:00 pm Patient Instructions/Handouts: *Surgery [facility] - (Anesthesia) Discharge Instructions Outpatient Surgery, Abdominal Binder (DC), Excision of Skin Lesion (GEN) Activity/Diet/Wound Care/Special Instructions: DO NOT REMOVE DRESSING. MAY SHOWER. WEAR ABDOMINAL BINDER FOR COMFORT Discharge Disposition: HOME SELF-CARE
== END 2022-08-13 15:33 | disposition home or self-care (01) ==
LOC: OR 10:45
PROVIDERS: ATTEND Surgery Plastic and Reconstructive Surgery
DX: L90.5 Scar conditions and fibrosis of skin (principal); K65.4 Sclerosing mesenteritis; I11.9 Hypertensive heart disease without heart failure; E66.09 Other obesity due to excess calories; M10.9 Gout, unspecified; E78.5 Hyperlipidemia, unspecified; M19.90 Unspecified osteoarthritis, unspecified site; Z68.33 Body mass index [BMI] 33.0-33.9, adult; Z85.46 Personal history of malignant neoplasm of prostate; Z90.49 Acquired absence of other specified parts of digestive tract; Z98.890 Other specified postprocedural states; Z87.891 Personal history of nicotine dependence; Z86.59 Personal history of other mental and behavioral disorders; Z79.899 Other long term (current) drug therapy
CPT/HCPCS: 22901; 88309; J2250; J0330; J1100; J2710; J0690; J2405; J3010; J2704; J1170; J1644; J2001

== ENCOUNTER → 2022-08-19 | Outpatient (CLI) | payer BC | END | disposition home or self-care (01) | LOC: LABWHC1 07:03 | PROVIDERS: ATTEND Radiology Radiation Oncology | DX: Z08 Encounter for follow-up examination after completed treatment for malignant neoplasm (principal); C61 Malignant neoplasm of prostate; R35.1 Nocturia; Z87.891 Personal history of nicotine dependence; Z79.818 Long term (current) use of other agents affecting estrogen receptors and estrogen levels; Z92.3 Personal history of irradiation | CPT/HCPCS: 36415; 84153 ==

== ENCOUNTER 2023-01-08 01:53 | Emergency (ER) | payer BC ==
[2023-01-08] MEDS ORDERED: SODIUM CHLORIDE 0.9% 1,000 ML IV STA ×2 (02:14)
[2023-01-08] MEDS ORDERED: SODIUM CHLORIDE 0.9% 500 ML 500 ML IV STA (02:14)
[2023-01-08] MEDS ORDERED: LORazepam 2 MG/ML INJ IV PRN ×3 (02:14)
[2023-01-08] MEDS ORDERED: THIAMINE 100 MG/ML 2 ML VIAL IVPB STA (02:14)
[2023-01-08 02:18] VITALS: RESP 18
[2023-01-08] MEDS ORDERED: THIAMINE 300 MG in SODIUM CHLORIDE 0.9% 100 ML IVPB ONE (02:30)
--- NOTE | 2023-01-08 02:33 | ED ---
Dizziness HPI - General Chief Complaint: Dizziness Stated Complaint: dizziness Time Seen by Provider: 01/08/23 02:01 Source: family, RN notes reviewed, old records reviewed Mode of arrival: wheelchair Limitations: no limitations - History of Present Illness Initial Comments: This is a 62-year-old male to the ER for evaluation today. Patient does for ev aluation of dizziness dizziness a does experience on a daily basis. Patient's concerned for worsening of dizziness room spinning type or. All fevers no chest pain or shortness of breath no recent change in medications, no drugs or alcohol MD Complaint: dizziness, lightheadedness, difficulty walking -: days(s) Timing: sudden onset, intermittent Description: sense of movement, "room spinning", off-balance, difficulty walking History of Same: Yes History of Trauma: Yes Severity: moderate Improves With: remaining still Worsens With: nothing Associated Symptoms: denies other symptoms - Related Data Home Medications Medication Instructions Recorded Confirmed Doxazosin [Cardura] 4 mg PO DAILY@29903/21/19 08/13/22 amLODIPine [Norvasc] 10 mg PO DAILY@29903/21/19 08/13/22 lisinopriL [Zestril] 20 mg PO HS@1800 03/15/21 08/13/22 Atorvastatin [Lipitor] 20 mg PO HS@1800 07/09/22 08/13/22 Doxazosin [Cardura] 2 mg PO DAILY@29907/09/22 08/13/22 Previous Rx's Medication Instructions Recorded Ibuprofen [Motrin] 600 mg PO Q8HR PRN #30 tab 07/11/22 Acetaminophen Tab [Tylenol Tab] 1,000 mg PO Q6HR PRN #30 tablet 08/13/22 Allergies Allergy/AdvReac Type Severity Reaction Status Date / Time No Known Allergies Allergy Verified 01/08/23 02:00 Review of Systems ROS Statement: Those systems with pertinent positive or pertinent negative responses have been documented in the HPI. ROS Other: All systems not noted in ROS Statement are negative. Past Medical History Past Medical History: Cancer, Hyperlipidemia, Hypertension, Osteoarthritis (OA) Additional Past Medical History / Comment(s): AAA, gout, DDD, hx prostate cancer with radiation treatment, Pre-Diabetic, BPH, states "lump" by his ankle that he's had for years. History of Any Multi-Drug Resistant Organisms: None Reported Past Surgical History: Appendectomy, Back Surgery, Hernia Repair, Orthopedic Surgery Additional Past Surgical History / Comment(s): Bilateral hand surgery, colonoscopy, EGD. Past Anesthesia/Blood Transfusion Reactions: No Reported Reaction Past Psychological History: No Psychological Hx Reported Smoking Status: Former smoker Past Alcohol Use History: Daily Past Drug Use History: None Reported - Past Family History Mother Family Medical History: No Reported History Father Family Medical History: No Reported History General Exam Limitations: no limitations General appearance: alert, in no apparent distress Head exam: Present: atraumatic, normocephalic, normal inspection Eye exam: Present: normal appearance, PERRL, EOMI. Absent: scleral icterus, conjunctival injection, periorbital swelling ENT exam: Present: normal exam, mucous membranes moist Neck exam: Present: normal inspection. Absent: tenderness, meningismus, lymphadenopathy Respiratory exam: Present: normal lung sounds bilaterally. Absent: respiratory distress, wheezes, rales, rhonchi, stridor Cardiovascular Exam: Present: regular rate, normal rhythm, normal heart sounds. Absent: systolic murmur, diastolic murmur, rubs, gallop, clicks GI/Abdominal exam: Present: soft, normal bowel sounds. Absent: distended, tenderness, guarding, rebound, rigid Extremities exam: Present: normal inspection, full ROM, normal capillary refill. Absent: tenderness, pedal edema, joint swelling, calf tenderness Back exam: Present: normal inspection Neurological exam: Present: alert, oriented X3, CN II-XII intact Psychiatric exam: Present: normal affect, normal mood Skin exam: Present: warm, dry, intact, normal color. Absent: rash Course Vital Signs 01/08/23 01/08/23 01:58 04:03 Temperature 98.6 F 97.8 F Pulse Rate 54 L 55 L Respiratory 18 18 Rate Blood Pressure 120/83 128/92 O2 Sat by Pulse 97 97 Oximetry - Reevaluation(s) Reevaluation #1: 01/08/23 02:33 Medical records reviewed Reevaluation #2: Patient symptoms improved here in the area is able to ambulate Reevaluation #3: Patient informed results questions answered Reevaluation #4: 01/08/23 02:33 Was pt. sent in by a medical professional or institution (, PA, ASSET CARD CLERK, urgent care, hospital, or long-term...) When possible be specific @ -no Did you speak to anyone other than the patient for history (EMS, parent, family, police, friend...)? What history was obtained from this source @ -no Did you review nursing and triage notes (agree or disagree)? Why? @ -agree Are old charts reviewed (outside hosp., previous admission, EMS record, old EKG, old radiological studies, urgent care reports/EKG's, long-term records)? Report findings @ -yes Differential Diagnosis (chest pain, altered mental status, abdominal pain women, abdominal pain men, vaginal bleeding, weakness, fever, dyspnea, syncope, headache, dizziness, GI bleed, back pain, seizure, CVA, palpatations, mental health, musculoskeletal)? @ -prior EKG interpreted by me (3pts min.). @ -yes X-rays interpreted by me (1pt min.). @ -no CT interpreted by me (1pt min.). @ -no U/S interpreted by me (1pt. min.). @ -no What testing was considered but not performed or refused? (CT, X-rays, U/S, labs)? Why? @ -none What meds were considered but not given or refused? Why? @ -none Did you discuss the management of the patient with other professionals (professionals i.e. , PA, ASSET CARD CLERK, lab, RT, psych nurse, health care social worker, tricot knitting machine operator, teacher, legal compliance officer, foster care case manager)? Give summary @ -no Was smoking cessation discussed for >3mins.? @ -no Was critical care preformed (if so, how long)? @ -no Were there social determinants of health that impacted care today? How? (Clive elessness, low income, unemployed, alcoholism, drug addiction, transportation, low edu. Level, literacy, decrease access to med. care, intermediate, rehab)? @ -none Was there de-escalation of care discussed even if they declined (Discuss DNR or withdrawal of care, Hospice)? DNR status @ -no What co-morbidities impacted this encounter? (DM, HTN, Smoking, COPD, CAD, Cancer, CVA, ARF, Chemo, Hep., AIDS, mental health diagnosis, sleep apnea, morbid obesity)? @ -none Was patient admitted / discharged? Hospital course, mention meds given and route, prescriptions, significant lab abnormalities, going to OR and other pertinent info. @ - 62 male to the emergency department for evaluation significant dizziness vertiginous symptoms. Patient is able to ambulate here in the ER, is no acute complaints no headache or other issues. Patient feels improved and can be discharged home Discharge Undiagnosed new problem with uncertain prognosis? @ -no Drug Therapy requiring intensive monitoring for toxicity (Heparin, Nitro, Insulin, Cardizem)? @ -no Were any procedures done? @ -no Diagnosis/symptom? @ -Dizziness and vertigo Acute, or Chronic, or Acute on Chronic? @ -Acute Uncomplicated (without systemic symptoms) or Complicated (systemic symptoms)? @ -Complicated Side effects of treatment? @ -no Exacerbation, Progression, or Severe Exacerbation? @ -exacerbation Poses a threat to life or bodily function? How? (Chest pain, USA, DC, pneumonia, PE, COPD, DKA, ARF, appy, cholecystitis, CVA, Diverticulitis, Homicidal, Suicidal, threat to staff... and all critical care pts) @ -no Reevaluation #5: 01/08/23 02:33 Differential Dizziness: Benign paroxysmal positional Vertigo, Menieres disease, otitis media, acoustic neuroma, vertebrobasilar insufficiency, cerebellar stroke, encephalitis, hypovolemic, arrhythmia, coronary artery syndrome, anemia, this is not meant to be an all-inclusive list EKG Findings - EKG Comments: EKG Findings:: EKG is sinus bradycardia 55 DC 190 QRS 1:15 QTC 404 - EKG Results: EKG: interpreted by ERMD Medical Decision Making - Medical Decision Making 62 male to the emergency department for evaluation significant dizziness vertiginous symptoms. Patient is able to ambulate here in the ER, is no acute complaints no headache or other issues. Patient feels improved and can be discharged home - Lab Data Result diagrams: 01/08/23 02:31 01/08/23 02:31 Lab Results 01/08/23 01/08/23 01/08/23 Range/Units 02:31 02:31 02:31 WBC 4.6 (3.8-10.6) k/uL RBC 4.76 (4.30-5.90) m/uL Hgb 13.8 (13.0-17.5) gm/dL Hct 41.7 (39.0-53.0) % MCV 87.7 (80.0-100.0) fL MCH 29.1 (25.0-35.0) pg MCHC 33.2 (31.0-37.0) g/dL RDW 12.6 (11.5-15.5) % Plt Count 239 (150-450) k/uL MPV 7.3 Neutrophils % 55 % Lymphocytes % 32 % Monocytes % 5 % Eosinophils % 6 % Basophils % 1 % Neutrophils # 2.6 (1.3-7.7) k/uL Lymphocytes # 1.5 (1.0-4.8) k/uL Monocytes # 0.2 (0-1.0) k/uL Eosinophils # 0.3 (0-0.7) k/uL Basophils # 0.0 (0-0.2) k/uL Sodium 141 (137-145) mmol/L Potassium 4.3 (3.5-5.1) mmol/L Chloride 104 (98-107) mmol/L Carbon Dioxide 29 (22-30) mmol/L Anion Gap 8 mmol/L BUN 24 H (9-20) mg/dL Creatinine 0.97 (0.66-1.25) mg/dL Est GFR (CKD-EPI)AfAm >90 (>60 ml/min/1.73 sqM) Est GFR (CKD-EPI)NonAf 85 (>60 ml/min/1.73 sqM) Glucose 90 (74-99) mg/dL Calcium 9.2 (8.4-10.2) mg/dL Phosphorus 4.2 (2.5-4.5) mg/dL Magnesium 2.0 (1.6-2.3) mg/dL Total Bilirubin 0.4 (0.2-1.3) mg/dL AST 25 (17-59) U/L ALT 22 (4-49) U/L Alkaline Phosphatase 63 (38-126) U/L Total Protein 6.9 (6.3-8.2) g/dL Albumin 4.1 (3.5-5.0) g/dL Lipase 40 (23-300) U/L Urine Color Light Yellow Urine Appearance Clear (Clear) Urine pH 6.0 (5.0-8.0) Ur Specific [place] 1.019 (1.001-1.035) Urine Protein Negative (Negative) Urine Glucose (UA) Negative (Negative) Urine Ketones Negative (Negative) Urine Blood Trace H (Negative) Urine Nitrite Negative (Negative) Urine Bilirubin Negative (Negative) Urine Urobilinogen <2.0 (<2.0) mg/dL Ur Leukocyte Esterase Negative (Negative) Urine RBC 2 (0-5) /hpf Urine WBC 2 (0-5) /hpf Ur Squamous Epith Cells 2 (0-4) /hpf Hyaline Casts 1 (0-2) /lpf Urine Opiates Screen Detected H (NotDetected) Ur Oxycodone Screen Not Detected (NotDetected) Urine Methadone Screen Not Detected (NotDetected) Ur Propoxyphene Screen Not Detected (NotDetected) Ur Barbiturates Screen Not Detected (NotDetected) U Tricyclic Antidepress Not Detected (NotDetected) Ur Phencyclidine Scrn Not Detected (NotDetected) Ur Amphetamines Screen Not Detected (NotDetected) U Methamphetamines Scrn Not Detected (NotDetected) U Benzodiazepines Scrn Not Detected (NotDetected) Urine Cocaine Screen Not Detected (NotDetected) U Marijuana (THC) Screen Not Detected (NotDetected) Serum Alcohol <10 mg/dL - EKG Data -: EKG Interpreted by Me Disposition Clinical Impression: Dizziness Disposition: HOME SELF-CARE Condition: Good Instructions (If sedation given, give patient instructions): Dizziness (ED) Is patient prescribed a controlled substance at d/c from ED?: No Referrals: Kervin Roberts MD [Primary Care Provider] - 1-2 days Time of Disposition: 03:40
[2023-01-08 03:02] LABS: ALT 22 U/L (4-49); AST 25 U/L (17-59); African American GFR (CKD) >90 (>60 ml/min/1.73 sqM); Albumin 4.1 g/dL (3.5-5.0); Alcohol <10 mg/dL; Alkaline Phosphatase 63 U/L (38-126); Anion Gap 8 mmol/L; Blood Urea Nitrogen 24 mg/dL (9-20); Calcium 9.2 mg/dL (8.4-10.2); Carbon Dioxide 29 mmol/L (22-30); Chloride 104 mmol/L (98-107); Glucose 90 mg/dL (74-99); Lipase 40 U/L (23-300); Non-African American GFR(CKD) 85 (>60 ml/min/1.73 sqM); Phosphorus 4.2 mg/dL (2.5-4.5); Potassium 4.3 mmol/L (3.5-5.1); Sodium 141 mmol/L (137-145); Total Bilirubin 0.4 mg/dL (0.2-1.3); Total Protein 6.9 g/dL (6.3-8.2)
[2023-01-08 03:16] LABS: Appearance,Urine Clear (Clear); Bilirubin,Urine Negative (Negative); Blood,Urine Trace (Negative); Color,Urine Light Yellow; Glucose,Urine (UA) Negative (Negative); Hyaline Casts,Urine 1 /lpf (0-2); Ketones,Urine Negative (Negative); Leukocyte Esterase,Urine Negative (Negative); Nitrite,Urine Negative (Negative); Protein,Urine Negative (Negative); RBC,Urine 2 /hpf (0-5); Specific Gravity,Urine 1.019 (1.001-1.035); Squamous Epithelial Cell,Urine 2 /hpf (0-4); Urobilinogen,Urine <2.0 mg/dL (<2.0); WBC,Urine 2 /hpf (0-5)
[2023-01-08 03:17] LABS: Basophils % (A) 1 %; Eosinophils # (A) 0.3 k/uL (0-0.7); Eosinophils % (A) 6 %; HCT 41.7 % (39.0-53.0); HGB 13.8 gm/dL (13.0-17.5); Lymphocytes # (A) 1.5 k/uL (1.0-4.8); Lymphocytes % (A) 32 %; MCH 29.1 pg (25.0-35.0); MCHC 33.2 g/dL (31.0-37.0); MCV 87.7 fL (80.0-100.0); Mean Platelet Volume 7.3; Monocytes # (A) 0.2 k/uL (0-1.0); Monocytes % (A) 5 %; Neutrophils # (A) 2.6 k/uL (1.3-7.7); Neutrophils % (A) 55 %; Platelet Count 239 k/uL (150-450); RBC 4.76 m/uL (4.30-5.90); RDW 12.6 % (11.5-15.5); WBC 4.6 k/uL (3.8-10.6)
[2023-01-08 03:20] LABS: Amphetamine Screen,Urine Not Detected (NotDetected); Barbiturate Screen,Urine Not Detected (NotDetected); Benzodiazepines Screen,Urine Not Detected (NotDetected); Cocaine Screen,Urine Not Detected (NotDetected); Methadone Screen, Urine Not Detected (NotDetected); Opiate Screen,Urine Detected (NotDetected); Oxycodone Screen, Urine Not Detected (NotDetected); Phencyclidine Screen,Urine Not Detected (NotDetected); Tricyclic Antidepressant,Urine Not Detected (NotDetected); Urn Cannabinoid Scrn Not Detected (NotDetected)
[2023-01-08 04:09] VITALS: BP 128/92; PULSE 55; TEMP 97.8
[2023-01-08] MEDS ORDERED: MULTIVITAMINS, THERA 1 EACH TAB PO SCH (09:00)
[2023-01-08] MEDS ORDERED: FOLIC ACID 1 MG TAB PO SCH (09:00)
== END 2023-01-08 04:05 | disposition home or self-care (01) ==
LOC: EC 01:53
DX: R00.1 Bradycardia, unspecified (principal); R42 Dizziness and giddiness; E78.5 Hyperlipidemia, unspecified; I10 Essential (primary) hypertension; Z87.891 Personal history of nicotine dependence; Z79.899 Other long term (current) drug therapy
CPT/HCPCS: 36415; 93005; 80053; 83690; 83735; 84100; 85025; 81001; 80306; 80320; 99284; 96365; J3411

== ENCOUNTER → 2023-02-19 | Outpatient (CLI) | payer BC | END | disposition home or self-care (01) | LOC: LABWHC1 07:16 | PROVIDERS: ATTEND Radiology Radiation Oncology | DX: Z08 Encounter for follow-up examination after completed treatment for malignant neoplasm (principal); R35.1 Nocturia; Z92.3 Personal history of irradiation; Z79.818 Long term (current) use of other agents affecting estrogen receptors and estrogen levels; Z87.891 Personal history of nicotine dependence; Z85.46 Personal history of malignant neoplasm of prostate | CPT/HCPCS: 36415; 84153 ==

== ENCOUNTER → 2023-03-26 | Outpatient (CLI) | payer BC ==
[2023-03-26 08:16] LABS: African American GFR (CKD) >90 (>60 ml/min/1.73 sqM); Blood Urea Nitrogen 20 mg/dL (9-20); Non-African American GFR(CKD) >90 (>60 ml/min/1.73 sqM)
--- NOTE | 2023-03-26 10:04 | CT ---
EXAMINATION TYPE: CT ChestAbdPelvis wo/w con DATE OF EXAM: 03/26/2023 INDICATION: prostate CA COMPARISON: CT abdomen pelvis 07/21/2022 CT DLP: 2766.9 mGycm CONTRAST: Performed with Oral Contrast and without and with IV Contrast, patient injected with 100 mL of Isovue 300. TECHNIQUE: Axial images at 5 mm thick sections. Reconstructed images in the coronal plane. Delayed images through the kidneys. FINDINGS: CT CHEST: Portion of the thyroid visualized is normal. No suspicious lung nodules or focal infiltrates are present. No enlarged mediastinal or hilar adenopathy is evident. The ascending aorta diameter at the level of the main pulmonary artery is 4.6 cm. The main pulmonary artery diameter at the bifurcation is 2.[address] ABDOMEN: Lipoma is likely along posterior lateral right subcutaneous tissue. Series 9 image 24. Liver: Normal Spleen: Normal Pancreas: Normal Adrenal glands: The adrenal glands are normal. Gallbladder: Normal Kidneys: No masses are evident. No hydronephrosis is present. No cysts are present. No renal stone s evident. Delayed images were obtained to the kidneys which are unremarkable. Aorta: Normal common iliac arteries are prominent measuring 2.1 cm on the right and 2.4 cm on the lef t. Inferior vena cava: Normal. CT PELVIS: Loops of bowel within the abdomen and pelvis are normal. Fecal debris is within the colon. There are loops of bowel lacking oral contrast is incompletely distended limiting their evaluation. Appendix: Normal as visualized. Urinary bladder: Normal. Genitourinary structures: Prostate appears within normal limits. Patient's known prostate cancer is n ot identified on the CT examination. Osseous structures: No suspicious lytic or sclerotic lesions. Facet degenerative changes are within t he lumbar spine. IMPRESSION: 1. Ascending thoracic aortic aneurysm measuring 4.6 cm. 2. No suspicious changes to suggest metastatic prostate cancer.
== END | disposition home or self-care (01) ==
LOC: RADCTMAIN 07:11
PROVIDERS: ATTEND Radiology Radiation Oncology
DX: I71.21 Aneurysm of the ascending aorta, without rupture (principal); C61 Malignant neoplasm of prostate; Z79.818 Long term (current) use of other agents affecting estrogen receptors and estrogen levels; Z87.891 Personal history of nicotine dependence
CPT/HCPCS: 82565; 84520; 71270; 74178; 36415; Q9967

== ENCOUNTER → 2023-05-14 | Outpatient (CLI) | payer BC ==
[2023-05-14 10:36] LABS: ALT 15 U/L (10-49); AST 16 U/L (14-35); Chol/HDL Ratio 2.85 Ratio; Glucose 98 mg/dL (70-110); LDL Cholesterol,Calculated 66.9 mg/dL (0.0-131.0); VLDL Calculation 13.58 mg/dL (5.00-40.00)
== END | disposition home or self-care (01) ==
LOC: LABWHC1 07:05
PROVIDERS: ATTEND Internal Medicine Cardiovascular Disease
DX: E78.2 Mixed hyperlipidemia (principal)
CPT/HCPCS: 36415; 80061; 82947; 83036; 84450; 84460

== ENCOUNTER → 2023-08-25 | Outpatient (CLI) | payer BC | END | disposition home or self-care (01) | LOC: LABWHC1 15:04 | PROVIDERS: ATTEND Radiology Radiation Oncology | DX: Z08 Encounter for follow-up examination after completed treatment for malignant neoplasm (principal); C61 Malignant neoplasm of prostate; R35.1 Nocturia; Z79.818 Long term (current) use of other agents affecting estrogen receptors and estrogen levels; Z92.3 Personal history of irradiation; Z87.891 Personal history of nicotine dependence | CPT/HCPCS: 36415; 84153 ==

== ENCOUNTER → 2024-04-27 | Outpatient (CLI) | payer BC ==
--- NOTE | 2024-04-27 13:34 | CTL ---
EXAMINATION TYPE: CT Low Dose Lung DATE OF EXAM ORDERED: 04/27/2024 COMPARISON: CT March 26, 2023 CLINICAL INDICATION: Male, 64 years old with history of Z87.891 hx tobacco use; PHH, tobacco use, [place] g cancer screening, History of Smoking/tobacco use. TECHNIQUE: Low dose computed tomography scan was performed through the chest at 1 mm thick sections a nd reconstructed images in multiple planes at 1 mm and [address] DLP: 125.[address] CTDI: 3.3 mGy Automated exposure control for dose reduction was used. CT DIAGNOSTIC QUALITY: Satisfactory FINDINGS: Nodules: A few scattered tiny nodules. Some are listed below. RUL: There is 3 mm right upper lobe pulmonary nodule anteriorly axial image 67. RML: None. RLL: None. MAGO: There is a 4 x 2 mm central nodule axial image 111. LLL: None. No greater than 6 mm noncalcified pulmonary nodules. LUNGS: COPD: Severity: None Fibrosis: Severity: None Lymph nodes: None Other findings: None RIGHT PLEURAL SPACE: Effusion: None Calcification: None Thickening: None Pneumothorax: None LEFT PLEURAL SPACE: Effusion: None Calcification: None Thickening: None Pneumothorax: None HEART: Heart Size: Normal Coronary Calcification: Tiny Pericardial Effusion: None OTHER FINDINGS: Upper abdomen: None Bony thorax: Degenerative spurring Supraclavicular region: None Other: None IMPRESSION: No new or enlarging greater than [address] LUNG RAD AND CT CHEST RECOMMENDATION: Lung-Rad 2 Benign Appearance or Behavior: Continue annual sc reening with LDCT in 12 months. S Modifier (other clinically significant findings): None [facility], , 04/27/2024 1:32 PM
== END | disposition home or self-care (01) ==
LOC: RADCTMAIN 06:35
PROVIDERS: ATTEND Internal Medicine
DX: Z12.2 Encounter for screening for malignant neoplasm of respiratory organs (principal); Z87.891 Personal history of nicotine dependence
CPT/HCPCS: 71271

== ENCOUNTER → 2024-05-22 | Outpatient (CLI) | payer BC | END | disposition home or self-care (01) | LOC: LABWHC1 07:09 | PROVIDERS: ATTEND Radiology Radiation Oncology | DX: Z08 Encounter for follow-up examination after completed treatment for malignant neoplasm (principal); C61 Malignant neoplasm of prostate; R35.1 Nocturia; Z92.3 Personal history of irradiation; Z79.818 Long term (current) use of other agents affecting estrogen receptors and estrogen levels; Z87.891 Personal history of nicotine dependence | CPT/HCPCS: 36415; 84153 ==

== ENCOUNTER → 2024-07-04 | Outpatient (CLI) | payer BC | END | disposition home or self-care (01) | LOC: LABWHC1 07:07 | PROVIDERS: ATTEND Radiology Radiation Oncology | DX: Z08 Encounter for follow-up examination after completed treatment for malignant neoplasm (principal); C61 Malignant neoplasm of prostate; R35.1 Nocturia; Z92.3 Personal history of irradiation; Z79.818 Long term (current) use of other agents affecting estrogen receptors and estrogen levels; Z87.891 Personal history of nicotine dependence | CPT/HCPCS: 36415; 84153 ==

== ENCOUNTER → 2024-08-04 | Outpatient (CLI) | payer BC ==
--- NOTE | 2024-08-04 13:26 | PE ---
EXAMINATION TYPE: PET CT fusion skull to thigh DATE OF EXAM: 08/04/2024 COMPARISON: Whole-body CT March 26, 2023 HISTORY: Prostate cancer diagnosed 2019. TECHNIQUE: Following the intravenous administration of 5.62 mCi of Ga-68 illucix, whole body images are performed from the skull base to the midthigh. Images are reviewed on the computer in the ignacio l, axial, and sagittal planes. Reconstructed rotating images are created on independent workstation and reviewed on the computer. A localization and attenuation correction CT is performed in conjunct ion with the PET scan. SCAN: Subsequent Scan FINDINGS: SKULL BASE AND NECK: No abnormal uptake. CHEST, MEDIASTINUM, AND HILAR REGION: No suspicious areas of abnormal uptake. ABDOMEN AND PELVIS: Minimal diffuse uptake throughout the normal-sized prostate gland. No areas of ma rked increased uptake. Physiologic uptake in the liver, spleen, and kidneys. Nonspecific bowel uptake . No areas of abnormal uptake in masses or lymph nodes. OSSEOUS STRUCTURES: No areas of abnormal uptake. OTHER CT: Cardiomegaly is present. Mild coronary artery calcifications. Contracted gallbladder. IMPRESSION: No areas of suspicious abnormal uptake to suggest metastatic disease. [facility], , 08/04/2024 1:24 PM
== END | disposition home or self-care (01) ==
LOC: RADPETMAIN 09:29
PROVIDERS: ATTEND Radiology Radiation Oncology
DX: C61 Malignant neoplasm of prostate (principal); R35.1 Nocturia; Z92.3 Personal history of irradiation; Z79.818 Long term (current) use of other agents affecting estrogen receptors and estrogen levels; Z87.891 Personal history of nicotine dependence
CPT/HCPCS: 78815; A9596

== ENCOUNTER → 2024-09-26 | Outpatient (CLI) | payer BC ==
--- NOTE | 2024-09-26 09:10 | CT ---
EXAMINATION TYPE: CT angio thor/abd pel aorta CT DLP: 1578 mGycm, Automated exposure control for dose reduction was used. DATE OF EXAM: 09/26/2024 8:50 AM COMPARISON: PET CT 08/04/2024, CT chest abdomen pelvis 03/26/2023, CT low-dose lung 04/27/2024, CT abdome n and pelvis 07/21/2022, 07/09/2022, 10/17/2021. CLINICAL INDICATION:Male, 64 years old with history of I44.4 L ANTERIOR FASC BLOCK I71.21 AAA; PHH, A AA TECHNIQUE: Dissection protocol: Multiple axial CT images of the chest, abdomen, and pelvis were obtai unruly prior and to the administration of IV contrast. 3-D reformats and maximum intensity projection fo rmat were performed on a separate workstation. Then the abdomen was scanned after administration of 1 00 cc of Isovue 370 IV contrast. FINDINGS: ARTERIAL VASCULATURE: The aorta is normal in course. Stable aneurysm dilatation of the aortic root me asuring up to 4.3 cm. Stable fusiform aneurysmal dilatation of the ascending thoracic aorta measuring 4.6 cm. The descending thoracic aorta measures up to 3.1 cm. There is no evidence of aortic dissecti on or acute aortic injury. Great arch vessels patent and normal in course and caliber. No significant atherosclerotic disease of the aorta or its branches. No abdominal aortic aneurysm with the abdomina l aorta measuring up to 2.7 cm. The celiac axis, SMA, single bilateral renal arteries, and ERICH are wi taz patent. Mild atherosclerotic plaque within the bilateral common iliac arteries. Fusiform aneurys mal dilatation of the bilateral common iliac arteries with the left measuring up to 2.4 cm and the ri ght measuring up to 2.3 cm. No significant stenosis. The bilateral internal and external iliac arteri es are widely patent. The bilateral common femoral arteries are widely patent. The bilateral visualiz ed superficial and deep femoral arteries are widely patent. PULMONARY ARTERIAL VASCULATURE: Normal caliber. No evidence of filling defect to suggest pulmonary em bolus. Lungs/pleura: No pleural effusion, pneumothorax, or focal consolidation. Couple of stable pulmonary m icronodules including a right midlung 3 mm nodule (series 5, image 28). Consider benign due to stabi lity. Heart: Size within normal limits.No pericardial effusion. No significant coronary arterial calcificat ion. Mediastinum: No evidence of adenopathy. Lower Neck: No significant findings. Abdomen: Liver: Unremarkable. Gallbladder and Bile ducts: Unremarkable. Pancreas: Unremarkable. Spleen: Unremarkable. Adrenal glands: Unremarkable. Kidneys and Ureters: Unremarkable. No hydronephrosis. Stomach and Bowel: Unremarkable. No evidence of bowel obstruction. Peritoneum: No evidence of pneumoperitoneum, free fluid, or adenopathy. Bladder: Unremarkable. Reproductive: Unremarkable. Soft tissues: Metallic 7 mm BB identified within the subcutaneous tissues of the posterior left lower back. Small fat filled left inguinal hernia. Tiny fat filled umbilical hernia. Bilateral gynecomasti a. Musculoskeletal: The osseous structures appear intact. Grade 1 anterolisthesis of L4 on L5 without ev idence of pars defects. Mild multilevel degenerative disc disease of the thoracic spine. Multilevel f acet arthropathy of the lower lumbar spine. IMPRESSION: Stable aneurysmal dilatation of the aortic root and ascending thoracic aorta. Stable aneurysm dilatat ion of the bilateral common iliac arteries. No evidence for dissection or significant stenosis. [facility], , 09/26/2024 9:08 AM
--- NOTE | 2024-09-26 12:59 | CA ---
Exercise Nuclear Stress Test Report Name: Ayad Plaza Exam Date: 09/26/2024 09:41 Exam Location: [facility] Ht (in): 73 Wt (lb): 220 BSA: 2.24 Ordering Phys: Kervin Willis MD Referring Phys: KERVIN WILLIS Technologist: ORIANA Age: 64 Gender: M : 1960 Procedure CPT: Indications: I44.4 L ANTERIOR FASC BLOCK I71.21 AAA ICD-10 Codes: Patient History: Chest pressure, palpitations and hypertension Medications: Meds past 24 hrs: Pretest Chest Pain: STRESS TEST Partha Protocol Exercise Duration (min:sec): 07:[address] Depressions (mm): Angina Score: Horan Score: Resting HR (bpm): 84 Peak HR (bpm): 163 Resting BP (mmHg): 126 / 92 Peak BP (mmHg): / 86 MPHR: 158 Target HR: 134 % MPHR: 103 METS: 9.5 Total Dose: Peak Dose: Atropine: Double Product: BP Response: Stress Termination: Reached target heart rate. Max exertion. Stress Symptoms: No chest pain or symptoms Stress Summary: The patient's target heart rate was achieved, The hemodynamic response to exercise was normal ECG ANALYSIS Resting ECG: Sinus rhythm. Normal conduction. No arrhythmias. Nonspecific ST-T abnormality. Stress ECG: No ECG evidence of ischemia with exercise. Ventricular premature contraction. CONCLUSIONS 1. Good exercise tolerance with no evidence of electrocardiographic changes 2. Occasional single PVCs and couplets 3. Nuclear images will be reported separately Dr. Marco Alcocer MD (Electronically Signed) Final Date: 26 September 2024 12:58
--- NOTE | 2024-09-26 13:53 | NM ---
EXAMINATION TYPE: NM stress cardiolite complete DATE OF EXAM: 09/26/2024 COMPARISON: NONE CLINICAL INDICATION: Male, 64 years old with history of I44.4 L ANTERIOR FASC BLOCK I71.21 AAA; TECHNIQUE: After the intravenous administration of 9.6 mCi Tc 99m Sestamibi - Rest images obtained 8 4 minutes post injection. The patient exercised using a CARLOS protocol and 1 minute prior to peak e xercise was injected with 25.8 mCi Tc 99m Sestamibi - Stress images obtained 40 minutes post injectio n. FINDINGS: Targeted heart rate was achieved during performance of the study. Review of stress and rest SPECT jose ges demonstrates no distinct perfusion abnormality. Gated analysis shows normal wall motion with an estimated left ventricular ejection fraction of 62 %. IMPRESSION: No scintigraphic evidence for reversible ischemia [facility] L[facility] Lira, , 09/26/2024 1:51 PM
== END | disposition home or self-care (01) ==
LOC: RADNMMAIN 07:43
PROVIDERS: ATTEND Internal Medicine
DX: I44.4 Left anterior fascicular block (principal); I71.21 Aneurysm of the ascending aorta, without rupture; I10 Essential (primary) hypertension; R00.2 Palpitations; I49.3 Ventricular premature depolarization
CPT/HCPCS: 93017; 71275; 74174; 78452; A9500; Q9967